=== PATIENT | male | born 1965 | race Caucasian/White ===

== ENCOUNTER 2023-07-19 22:47 | Inpatient (IN) | payer OTHER, SELFPAY ==
[2023-07-19] VITALS (7 sets, daily range): BP systolic 96–125; BP diastolic 64–82; PULSE 69–107; RESP 16–23; TEMP 35.5; O2SAT 98–100
--- NOTE | ~2023-07-19 | MR_ITS ---
MRI of the brain Clinical History: Cardiac arrest, weakness in extremities Technique: Axial and sagittal T1-weighted images were acquired. These were followed by axial T2-weigh radhika, diffusion weighted, gradient, and FLAIR images. Following intravenous administration of 18 cc MultiHance gadolinium, T1-weighted fat-sat imaging was performed in the axial and coronal planes. Findings: There is no acute infarct, intracranial hemorrhage or mass lesion. Possible minimal cricoph aryngeus ischemic changes in the periventricular white matter. Ventricles and subarachnoid spaces are unremarkable. Orbits are unremarkable. Paranasal sinuses and m astoid air cells are clear. Major intracranial flow voids are grossly intact. Sagittal midline structures are intact. No abnormal postcontrast enhancement identified. IMPRESSION: No acute abnormality seen. Probable minimal chronic microvascular ischemic changes. Reviewed, dictated and finalized at [facility].
--- NOTE | ~2023-07-19 | MR_ITS ---
EXAMINATION: MR cervical spine wo/w con DATE: 07/28/2023 13:52 INDICATION: Weakness in all 4 extremities. TECHNIQUE: Magnetic resonance imaging (MRI) of the cervical spine was performed without and with 18 m L MultiHance intravenous contrast. COMPARISON: CT cervical spine 07/24/2023 FINDINGS: Motion artifact is noted. Bone alignment is normal. Vertebral body heights are normal. Ther e is severely decreased disc height at C6-C7. There is increased T2-weighted signal intensity in the spinal cord at C6-C7 on the right, consistent with myelomalacia. The following disc levels are specif ically discussed: C2-C3: The disc does not extend beyond the endplate margin. There is mild right uncovertebral joint o steoarthritis. There is mild bilateral facet joint osteoarthritis. There is no neural foraminal steno sis. There is no central canal stenosis. C3-C4: The disc does not extend beyond the endplate margin. There is mild bilateral uncovertebral elizabeth nt osteoarthritis. There is moderate bilateral facet joint osteoarthritis. There is mild bilateral ne ural foraminal stenosis. There is no central canal stenosis. C4-C5: There is a central protrusion. There is mild bilateral uncovertebral joint osteoarthritis. The re is severe right and moderate left facet joint osteoarthritis. There is moderate right and mild lef t neural foraminal stenosis. There is mild central canal stenosis. C5-C6: The disc is bulging. There is severe right and moderate left uncovertebral joint osteoarthriti s. There is moderate right and mild left facet joint osteoarthritis. There is moderate bilateral neur al foraminal stenosis. There is mild central canal stenosis. C6-C7: The disc is bulging. There is severe bilateral uncovertebral joint osteoarthritis. There is mi ld right and moderate left facet joint osteoarthritis. There is moderate bilateral neural foraminal s tenosis. There is mild central canal stenosis. C7-T1: The disc does not extend beyond the endplate margin. There is no uncovertebral joint osteoarth ritis. There is severe bilateral facet joint osteoarthritis. There is mild bilateral neural foraminal stenosis. There is no central canal stenosis. IMPRESSION: 1. Myelomalacia at C6-C7. 2. Severe cervical spondylosis. Reviewed, dictated and finalized at location [facility].
--- NOTE | ~2023-07-19 | XR_ITS ---
MODIFIED ESOPHAGRAM HISTORY: Speech therapist recommendations. TECHNIQUE: Modified barium esophagram was performed on 07/26/2023. I administered fluoroscopy and perf ormed the exam with speech pathologist. Patient was seated for lateral fluoroscopic imaging for buddy stion of thin liquids, pudding, solids and quantified amounts, followed by thin liquids in uncontroll ed amounts. This was recorded on tape. A single fluoroscopic spot image was also recorded. The DAP fo r this procedure was 1.003 Gycm2. The amount of fluoroscopy time used during this procedure was 1.14 minutes. FINDINGS: Oral stage: Adequate function. Pharyngeal stage: Adequate function. Cervical/esophageal stage: Adequate function. IMPRESSION: Patient tolerated regular consistency oral feedings in the upright position. Please hannah elate with speech pathologist findings and specific feeding recommendations. Reviewed, dictated and finalized at location [facility]. IMPRESSION: Patient tolerated regular consistency oral feedings in the upright position. Please correlate with speech pathologist findings and specific feedi ng recommendations.
--- NOTE | ~2023-07-19 | XR_ITS ---
XR abdomen gastric tube insert DATE: 07/19/2023 23:46 INDICATION: Orogastric tube placement TECHNIQUE: Portable supine AP view on 07/19/2023 at 2306 hours COMPARISON: None FINDINGS: Tip of NG tube overlies the upper body of the stomach, the proximal side port situated just distal to the diaphragmatic hiatus. Nonspecific bowel gas pattern. IMPRESSION: NG tube in upper body of stomach Reviewed, dictated and finalized at [facility]. Reviewed, dictated and finalized at location [facility].
--- NOTE | ~2023-07-19 | CT_ITS ---
EXAMINATION: CT brain wo con DATE: 07/19/2023 23:30 INDICATION: Fall. Altered mental state. TECHNIQUE: Computed tomography (CT) of the head was performed without intravenous contrast. The mA wa s adjusted according to patient size. Iterative reconstruction technique was employed. Exam dose: 68 1.00 mGy-cm total exam DLP. COMPARISON: None FINDINGS: Bilateral carotid siphon internal carotid artery calcifications. No intracranial mass lesion or hemorrhage or cerebrovascular accident, midline shift or mass effect i s detected. The orbital contents are unremarkable. No subdural or epidural hematoma. The paranasal sinuses and mastoid air cells are well-developed and aerated. No fracture or bone destruction of the cranial vault. Nonspecific linear calcific density in the subc utaneous tissues in the lateral right frontal scalp. IMPRESSION: Cerebral atherosclerosis A significant intracranial abnormality Reviewed, dictated and finalized at [facility]. Reviewed, dictated and finalized at location [facility].
--- NOTE | ~2023-07-19 | XR_ITS ---
EXAMINATION: XR chest ET placement DATE: 07/19/2023 23:10 INDICATION: Endotracheal tube placement TECHNIQUE: frontal view of the chest was obtained. COMPARISON: None FINDINGS: Portion of the bilateral lung bases are excluded from the [id number]. Endotracheal tube tip 4.7 cm above the tamera. Visualized portion of the lungs are clear with no focal airspace opacities, pulmon corky edema or pneumothorax. Heart size is normal. IMPRESSION: 1. Endotracheal tube tip 4.7 cm above the tamera. No evident acute cardiopulmonary disease although t he lung bases are excluded from the [id number]. Reviewed, dictated and finalized at location [facility]. IMPRESSION: 1. Endotracheal tube tip 4.7 cm above the tamera. No evident acute cardiopulmon corky disease although the lung bases are excluded from the [id number].
--- NOTE | ~2023-07-19 | CT_ITS ---
Non-contrast Head CT History: Unresponsive COMPARISON: 07/19/2023 Technique: Axial non-contrast imaging of the brain was performed. Dose reduction technique was used on this scan by utilizing automated exposure control and iterative reconstruction technique. The dose -length product (DLP) was 681.00 mGy-cm. Findings: There is no evidence of intracranial hemorrhage, mass lesion, or acute infarct. Brain par enchyma appears normal. The ventricles and subarachnoid spaces are normal in size. The calvarium ap pears normal. The visualized paranasal sinuses and mastoid air cells are clear. Impression: No significant abnormality seen. Reviewed, dictated and finalized at location . Impression: No significant abnormality seen.
--- NOTE | ~2023-07-19 | CT_ITS ---
EXAMINATION: CTA chest abdomen pelvis DATE: 07/19/2023 23:31 INDICATION: Cardiac arrest TECHNIQUE: Computed tomography (CT) of the chest, abdomen, and pelvis was performed with 100 CC Omnip aque 350 intravenous contrast. Automated exposure control and iterative reconstruction technique were employed. Exam dose: 1277.44 mGy-cm total exam DLP. COMPARISON: . 07/19/2023 portable AP chest 07/19/2023 KUB FINDINGS: CHEST CT: There is mild focal dependent left upper lobe infiltrate or atelectasis. There is more prominent right lower lobe and particularly left lower lobe infiltrate and/or atelectas is especially in the dependent aspect of the lower lobes. ET tube approximately 2 cm above tamera. NG tube in upper body of stomach. The descending aorta measures up to 4.2 cm diameter. There is atherosclerotic calcification of the th oracic aorta and the coronary arteries. Cardiomegaly. No pericardial effusion. No pleural effusion. No hilar or mediastinal mass lesion or lymphadenopathy. ABDOMEN/PELVIS CT: The gallbladder is contracted. No hepatic, splenic, pancreatic, adrenal or right renal space occupyin g mass lesion. 8 mm lower pole left renal cyst. The left kidney is otherwise unremarkable. No urinary tract calculi or hydroureteronephrosis are noted. There is a Guzman catheter within the evacuated uri nary bladder. Normal caliber of the abdominal aorta. No intraperitoneal or retroperitoneal or pelvic mass lesion or adenopathy or ascites is noted. Diverticulosis of the colon; no CT evidence of diverticulitis. There are nondilated fluid containing small bowel segments and air-fluid levels within the small bowel and some liquid stool in the colon m ay be due to enterocolitis or adynamic ileus. No bowel obstruction, bowel wall thickening, pneumatosi s or intraperitoneal free air is noted. Degenerative changes of the cervical, thoracic and lumbar spine. Mild loss of height of T9 and T11 ve rtebral bodies which may be due to old compression fractures or possibly developmental. No suspicious osteolytic or osteoblastic lesions are noted.. IMPRESSION: Bilateral pulmonary infiltrates and/or atelectasis, particularly in the lower lobes, lef t greater than right ET and NG tubes 4.2 cm descending thoracic aortic aneurysm Cardiomegaly 8 mm lower pole left renal cyst Diverticulosis of the colon Air-fluid levels in the small bowel and some liquid stool in the colon, without bowel obstruction 7 c onsider adynamic ileus versus enterocolitis Reviewed, dictated and finalized at [facility]. Reviewed, dictated and finalized at location A. IMPRESSION: Bilateral pulmonary infiltrates and/or atelectasis, particularly i n the lower lobes, left greater than right ET and NG tubes 4.2 cm descending thoracic aortic aneurysm Cardiomegaly 8 mm lower pole left renal cyst Diverticulosis of the colon Air-fluid levels in the small bowel and some liquid stool in the colon, without bowel obstruction 7 consider adynamic ileus versus enterocolitis
--- NOTE | ~2023-07-19 | XR_ITS ---
XR chest 1V portable DATE: 07/21/2023 05:36 INDICATION: Respiratory failure TECHNIQUE: Portable AP chest on 07/21/2023 at 0523 hours COMPARISON: 07/20/2023 portable AP chest at 0525 hours FINDINGS: ET tube in satisfactory position 4.9 cm above tamera. NG tube in stomach, proximal side por t approximately 2.2 cm distal to the diaphragmatic hiatus. No central lines. There is with mild infiltrate or atelectasis in the lower lung zones. No pleural effusion or pulmonar y vascular congestion or pneumothorax. Borderline heart size. Aortic arch calcification. IMPRESSION: No significant change since 07/20/2023 Reviewed, dictated and finalized at location [facility].
--- NOTE | ~2023-07-19 | XR_ITS ---
Portable chest x-ray Comparison: 07/22/2023 Clinical History: Respiratory failure Findings: Endotracheal tube and NG tube are in place, with NG tube side-port at the GE junction ananda on. Lungs are clear, without focal consolidation or pleural effusion. Cardiomediastinal silhouette i s stable. Bones and soft tissues are unremarkable. Impression: NG tube side-port of the GE junction. Further advancement into the stomach advised. ET tube in place. Clear lungs. Reviewed, dictated and finalized at location [facility]. Impression: NG tube side-port of the GE junction. Further advancement into the stomach advi sed. ET tube in place. Clear lungs.
--- NOTE | ~2023-07-19 | CT_ITS ---
Noncontrast CT scan of the cervical spine Technique: Multiple contiguous axial [address] images of the cervical spine were obtained and rec onstructed in 2D sagittal and coronal planes on the acquisition scanner. Dose reduction technique was used on this scan by utilizing automated exposure control, adjustment of the mA and/or kV according to patient size. The dose-length product (DLP) was 634.68 mGy-cm. Clinical History: Encephalopathy, unable to move extremities Findings: No fractures or dislocations. There is moderate degenerative disc change at C6-C7. Probabl e mild right neural foraminal narrowing at C4-C5 with mild facet arthropathy in the right side. There is right neural foraminal narrowing at C5-C6. There is bilateral neural foraminal narrowing at C6-C7 with disc osteophyte complex present. No prevertebral soft tissue swelling. There is partially proba ble minimal patchy airspace opacities in the superior segment right lower lobe. Impression: No fracture or subluxation of the cervical spine. Mild degenerative spondylosis, as detailed above. Partially imaged mild airspace opacities in the superior segment right lower lobe. Diagnostic conside rations including atelectatic change versus possibly pneumonia. Consider dedicated chest CT as indica radhika. Reviewed, dictated and finalized at [facility]. Impression: No fracture or subluxation of the cervical spine. Mild degenerative spondylosis, as detailed above. Partially imaged mild airspace opacities in the superior segment right lower lo be. Diagnostic considerations including atelectatic change versus possibly pneu monia. Consider dedicated chest CT as indicated.
--- NOTE | ~2023-07-19 | XR_ITS ---
Portable chest x-ray Comparison: 07/21/2023 Clinical History: Respiratory failure Findings: Endotracheal tube and NG tube are in satisfactory positions. Lungs are clear, without foca l consolidation or pleural effusion. Cardiomediastinal silhouette is stable. Bones and soft tissues are unremarkable. Impression: Lungs. Support tubes, as above. Reviewed, dictated and finalized at location . Impression: Lungs. Support tubes, as above.
--- NOTE | ~2023-07-19 | CT_ITS ---
Non-contrast Head CT History: Encephalopathy COMPARISON: 07/22/2023 Technique: Axial non-contrast imaging of the brain was performed. Dose reduction technique was used on this scan by utilizing automated exposure control and iterative reconstruction technique. The dose -length product (DLP) was 908.00 mGy-cm. Findings: There is no evidence of intracranial hemorrhage, mass lesion, or acute infarct. Brain par enchyma appears normal. The ventricles and subarachnoid spaces are normal in size. The calvarium ap pears normal. The visualized paranasal sinuses and mastoid air cells are clear. Impression: No significant abnormality seen. Reviewed, dictated and finalized at location . Impression: No significant abnormality seen.
--- NOTE | ~2023-07-19 | MR_ITS ---
EXAMINATION: MR lumbar spine wo/w con DATE: 07/28/2023 13:52 INDICATION: Weakness in all 4 extremities. TECHNIQUE: Magnetic resonance imaging (MRI) of the lumbar spine was performed without and with 18 mL MultiHance intravenous contrast. COMPARISON: None FINDINGS: There is 9 degrees levocurvature of lumbar spine. Vertebral body heights are normal. There is mildly decreased disc height at L5-S1. The distal spinal cord signal intensity is normal. The conu s medullaris is at T11-T12. The following disc levels are specifically discussed: L1-L2: The disc does not extend beyond the endplate margin. There is mild bilateral facet joint osteo arthritis. There is no neural foraminal stenosis. There is no central canal stenosis. L2-L3: The disc is bulging and has an annular fissure. There is mild bilateral facet joint osteoarthr itis. There is mild bilateral neural foraminal stenosis. There is mild central canal stenosis. L3-L4: The disc is bulging. There is mild bilateral facet joint osteoarthritis. There is mild bilater al neural foraminal stenosis. There is mild central canal stenosis. L4-L5: The disc is bulging and has an annular fissure. There is severe bilateral facet joint osteoart hritis. There is moderate bilateral neural foraminal stenosis. There is mild central canal stenosis. L5-S1: The disc is bulging and has an annular fissure. There is mild right and moderate left facet william int osteoarthritis. There is mild bilateral neural foraminal stenosis. There is mild central canal st enosis. IMPRESSION: 1. Moderate lumbar spondylosis. Reviewed, dictated and finalized at location A.
--- NOTE | ~2023-07-19 | XR_ITS ---
XR chest 1V portable DATE: 07/20/2023 06:09 INDICATION: Post cardiac arrest. TECHNIQUE: Portable AP chest on 07/19 sagittal and 24 0525 hours COMPARISON: 07/19/2023 portable AP chest at 2253 hours 07/19/2023 CT 8 chest abdomen pelvis FINDINGS: ET tube in satisfactory position 3 cm above tamera. NG tube in upper stomach. Mild infiltrate or atelectasis in the lower lung zones. No pleural effusion or pulmonary vascular congestion or pneumothorax. Aortic arch calcification. Heart size is not optimally evaluated on AP projection because of magnification. IMPRESSION: Mild infiltrate or atelectasis in the lower lung zones Reviewed, dictated and finalized at location A.
--- NOTE | ~2023-07-19 | XR_ITS ---
Portable chest x-ray Comparison: 07/23/2023 Clinical History: Respiratory failure Findings: Endotracheal tube and NG tube are in satisfactory positions. Lungs are clear, without foca l consolidation or pleural effusion. Cardiomediastinal silhouette is stable. Bones and soft tissues are unremarkable. Impression: Clear lungs. Support tubes, as above. Reviewed, dictated and finalized at location . Impression: Clear lungs. Support tubes, as above.
--- NOTE | ~2023-07-19 | MR_ITS ---
EXAMINATION: MR thoracic spine wo/w con DATE: 07/28/2023 13:52 INDICATION: Weakness in all 4 extremities. TECHNIQUE: Magnetic resonance imaging (MRI) of the thoracic spine was performed without and with 18 m L MultiHance intravenous contrast. COMPARISON: Chest CT 07/19/2023 FINDINGS: Motion artifact is noted. There is 4 degrees dextrocurvature of thoracic spine. There is ky phosis of thoracic spine. There is mild chronic anterior wedging of T3, T4, T9, T10, T11, and T12 chani tebral bodies. There is mildly decreased disc height at T3-T4, T4-T5, T5-T6, and T6-T7. At T4-T5, the disc is bulging and mild central canal stenosis. At T6-T7, there is a central protrusion with mild c entral canal stenosis. At T9-T10, there is a central protrusion with mild central canal stenosis. The re is multilevel mild facet joint osteoarthritis. No neural foraminal stenosis. The spinal cord signa l intensity is normal. IMPRESSION: 1. Mild thoracic spondylosis. Reviewed, dictated and finalized at location A.
--- NOTE | ~2023-07-19 | XR_ITS ---
Portable chest x-ray Comparison: 07/24/2023 Clinical History: Respiratory failure Findings: Endotracheal tube and NG tube are in satisfactory positions. Lungs remain clear. Cardiome diastinal silhouette is stable. Bones and soft tissues are unremarkable. Impression: Clear lungs. Stable support tubes. Reviewed, dictated and finalized at location . Impression: Clear lungs. Stable support tubes.
[2023-07-19] MEDS: FENTANYL 2,500MCG/NS250ML(*CRX 2,500 MCG/250 ML BAG IV CONT (22:55)
--- NOTE | 2023-07-19 22:55 | ECG_ITS ---
SEE SCANNED COPY FOR CONFIRMED REPORT MTDD
[2023-07-19 23:07] LABS: Hematocrit 44.1 % (42.0-52.0); Hemoglobin 14.4 g/dL (14.0-18.0); Mean Corpuscular HGB Conc 32.7 g/dl (32-36); Mean Corpuscular Hemoglobin 31.9 pg (26-34); Mean Corpuscular Volume 97.6 fl (80-100); Mean Platelet Volume 9.1 fl (7.4-10.4); Platelet Count Result 280 k/mm3 (150-375); Red Blood Count 4.52 M/mm3 (4.6-6.20); Red Cell Distribution Width 11.9 % (11.5-14.5); White Blood Count 14.7 K/mm3 (4.5-10.0)
[2023-07-19 23:18] LABS: INR 1.1; Prothrombin Time 14.8 Seconds (11.1-14.7)
[2023-07-19 23:19] LABS: Partial Thromboplastin Time 31.8 Seconds (22.3-36.8)
[2023-07-19 23:23] LABS: Estimated CRCL calculation 58 ml/min; Estimated Glomerular Filt Rate 52
[2023-07-19 23:32] LABS: LDL Cholesterol Direct 129 mg/dL
[2023-07-19 23:33] LABS: Blastocytes 1 %; Eosinophils Absolute Manual 0.44 K/mm3 (0.02-0.50); Eosinophils Percent Manual 3 % (0-4); Large Platelets Present; Lymphocytes Absolute Manual 7.49 K/mm3 (1.1-4.5); Monocytes Absolute Manual 0.14 K/mm3 (0.1-0.90); Monocytes Percent Manual 1 % (3-9); Myelocytes Percent 3 %; Neutrophils Percent Manual 32 % (46-73); Platelet Estimate Adequate (Adequate); Promyelocytes Percent 9 %; Total Cells Counted 100
[2023-07-19 23:34] LABS: Atypical Lymphocytes Present; Platelet Clumps Present; Schistocytes None Seen; Smudge Cells PRESENT
[2023-07-19 23:44] LABS: Alanine Aminotransferase 91 U/L (6-50); Albumin Level 4.2 g/dL (3.5-5.1); Alkaline Phosphatase 82 U/L (38-126); Anion Gap 18 mmol/L (4-12); Aspartate Amino Transferase 165 U/L (17-59); Bilirubin,Total 0.4 mg/dL (0.2-1.3); Blood Urea Nitrogen 16 mg/dL (9-20); Calcium 8.8 mg/dL (8.4-10.2); Carbon Dioxide 15 mmol/L (22-30); Chloride 104 mmol/L (98-107); Cholesterol 198 mg/dL (0-200); Estimated CRCL calculation 58 ml/min; Estimated Glomerular Filt Rate 52; Glucose 296 mg/dL (65-110); HDL Direct 48 mg/dL; Potassium 3.2 mmol/L (3.4-5.0); Sodium 137 mmol/L (137-145); Triglycerides 141 mg/dL (<150)
[2023-07-19 23:45] LABS: Lactic Acid Reflex 9.7 mmol/L (0.7-2.0)
[2023-07-19] MEDS: MIDAZOLAM 100MG/NS 100ML(*CRX) 100 MG/100 ML BAG IV CONT (23:46)
[2023-07-19] MEDS: TICAGRELOR 90 MG TABLET 180 MG PO (23:52)
[2023-07-19] MEDS: HEPARIN SODIUM 5,000 UNITS/ML VIAL 4000 UNITS IV PUSH (23:52)
[2023-07-19] MEDS: ASPIRIN 81 MG CHEWABLE TABLET 324 MG PO (23:54)
[2023-07-20] VITALS (62 sets, daily range): BP systolic 94–163; BP diastolic 71–115; PULSE 64–95; RESP 17–31; TEMP 35.4–37.3; O2SAT 98–100; BMI 26.7
--- NOTE | 2023-07-20 | ECHO_ITS ---
Patient Info Name: Andrews Sosa Age: 57 years : 1965 Gender: Male Ht: 73 in Wt: 202 lbs BSA: 2.18 m2 HR: 70 bpm Heart Rhythm: Sinus Rhythm Technical Quality: Good Exam Date: 07/20/2023 8:34 AM Exam Location: Echo Lab Patient Status: Inpatient Admit Date: 07/19/2023 Staff Ordering Physician: Andrzej Lopez MD Aquaculturist: Gabriel Freeman RDCS Attending Provider: Ralph Arce MD Exam Type: CA echo doppler color flow Study Info Indications - STEMI Complete two-dimensional, color flow and Doppler transthoracic echocardiogram is performed. Summary 1. Complete two-dimensional, color flow and Doppler transthoracic echocardiogram is performed. 2. Normal left ventricular size with posterior hypokinesia overall normal ejection fraction. 3. No significant valvular dysfunction. Left Ventricle Left ventricular chamber dimension is normal. Left ventricular systolic function is Empty, estimated at 50-55%. The left ventricular diastolic function is grade I diastolic dysfunction. Right Ventricle Right ventricular chamber dimension is normal. Left Atria Left atrial chamber dimension is normal. Right Atria Right atrial chamber dimension is normal. Aortic Valve The aortic valve is trileaflet. There is mild aortic valve sclerosis. Pulmonic Valve The pulmonic valve is not well visualized. Mitral Valve The mitral valve has normal leaflets. Tricuspid Valve The tricuspid valve leaflets are normal. Pericardium/Pleural The pericardium appears normal. Aorta The aortic root size at the sinus of Valsalva is normal. Report Signatures
--- NOTE | 2023-07-20 00:50 | ECG_ITS ---
SEE SCANNED COPY FOR CONFIRMED REPORT MTDD
--- NOTE | 2023-07-20 00:56 | WPDCARDPROC ---
Cardiac Cath Procedure Note Date of procedure:: 07/20/23 Performing physician:: Ralph Arce MD Indication:: out of hospital cardiac arrest acute posterolateral myocardial infarction dyslipidemia reported history of aortic aneurysm Brief clinical history:: this is a 57-year-old man who is unknown to us here at [facility] he apparently has a history of an aortic aneurysm and is followed elsewhere by a gravity prospector. I am told that he has no prior history of coronary disease. He presented to the hospital with ST-elevation SC. Apparently he collapsed at home and 911 was called. He was found asystolic and was resuscitated. He a had ventricular fibrillation and pulseless electrical activity during resuscitation effort. In the emergency room following resuscitation his initial ECG demonstrated obvious infero posterior infarction. Subsequent EKG demonstrated less significant ST elevation but with atrial fibrillation. In this setting he is being brought for emergency coronary angiography. He was intubated in the resuscitation effort and is sedated on mechanical ventilator support. Patient received aspirin and loading dose of Brilinta through his OG tube. Procedure Procedure performed:: Emergency coronary angiography emergency PCI (ALEXANDR) of the mid circumflex Sedation/Medication given:: IV fentanyl and Versed drips started in the emergency room and continued through the case Access site:: right femoral artery Estimated blood loss:: 30 cc Procedure note:: patient was brought to the cardiac laboratory equipment installer in the emergent setting not described above. The right femoral triangle was prepared and draped in the usual fashion. Anesthesia was given with 1% lidocaine infiltrated locally. Following this a 6 Cymraes sheath was placed into the femoral artery using the modified Seldinger technique. I advanced a 6 Cymraes FL4 catheter to the aortic root but the aortic root was dilated and this would not satisfactorily engage left main coronary artery. Following this I used a 6 Cymraes FL 5 catheter to perform left coronary angiography. The right coronary was injected using a standard 6 Cymraes JR4 catheter. During the diagnostic angiogram the femoral puncture site was oozing around the sheath. I then upsized this to a 7 Cymraes sheath and there was no further bleeding for the remainder of the case. The cineangiograms were then reviewed and PCI of the circumflex lesion described below was targeted for emergency PCI. Prior to PCI the patient received bolus and infusion of bivalirudin for procedural anticoagulation. As above he is loaded with aspirin and Brilinta in the emergency room so he did not receive any additional anti-platelet therapy in the laboratory equipment installer. Following completion of PCI the wire, balloon catheter and guiding catheter were removed the sheath was sutured into position the patient was taken to the ICU for post SC PCI recovery. The procedure was uncomplicated other than that oozing around the sheath as mentioned above Findings:: hemodynamics: Central aortic pressure was 104 over 80. Left ventricle was not entered during the procedure the left main coronary artery is medium in caliber and free of stenosis the left anterior descending is a large to moderate caliber artery extending down to the apex. There is modest 30% stenosis of the ostial segment of the LAD and then there is modest 40% stenosis in the midportion of the LAD there is ALBINO 3 flow in the vessel and these lesions are not flow-limiting the circumflex is a moderate caliber artery with approximately 50% stenosis just prior to the 1st marginal branch. After the 1st OM branch the circumflex is 100% occluded angiographically this appears to be in acute thrombotic occlusion consistent with STEMI. The right coronary artery is large in caliber and dominant to the posterior circulation. There is approximately 50% stenosis of the 1st portion of the right coronary arter
--- NOTE | 2023-07-20 01:07 | PM.IMHP ---
H&P: HPI History of Present Illness Date/Time: 07/20/23 01:07 Chief Complaint: out of hospital cardiac arrest, ST-elevation CT Narrative: this is a 57-year-old man with an apparent history of dyslipidemia and a reported history of aortic aneurysm. The details of this are unknown to us. He presents to the hospital here following resuscitation from cardiac arrest. He apparently was at home with family and was suddenly unresponsive and collapsed. 911 was called and I was told he was found in asystole. Resuscitation was then carried out and there were episodes of ventricular fibrillation as well as PE a. Upon arrival here he was intubated and electrocardiogram done following resuscitation showed obvious inferior ST elevation with anterior precordial ST depression. He has no previous known history of coronary artery disease according to the information I was given. There was no further history available as he is unresponsive and intubated and on ventilator support. Review of Systems Review of Systems: ROS unobtainable: Yes unobtainable due to endotracheal tube and unobtainable due to mental status PMFSH Past Medical History Medical History (Updated 07/20/23 @ 01:11 by Ralph Arce MD) BMI between 19-24,adult Colon cancer screening Encounter to establish care Family history of CT (myocardial infarction) Osteoarthritis of hands, bilateral Prostate cancer screening Wellness examination Family History Family History Mother , at 74 from Stroke Diabetes mellitus Acute myocardial infarction Cerebrovascular accident Father , at 54 from Heart Attack Acute myocardial infarction Social History Social History Smoking status: Former smoker Tobacco type: cigarettes Alcohol intake: current Alcohol use details: Beer occasionally Substance use: never Meds Home Medications and Allergies Home Medications Medication Instructions Recorded Confirmed Type aspirin 81 mg tablet,delayed 81 mg PO DAILY 09/15/19 09/15/19 History release (Adult Low Dose Aspirin) atorvastatin 10 mg tablet 10 mg PO DAILY #90 tabs 09/15/19 09/15/19 Rx multivitamin 1 cap PO DAILY 09/15/19 09/15/19 History Allergies Allergy/AdvReac Type Severity Reaction Status Date / Time No Known Allergies Allergy Unverified 09/15/19 15:33 Vital Signs Vital Signs - 24 hr 07/19/23 22:50 07/19/23 23:46 07/19/23 22:55 Pulse Rate 107 H 73 72 Respiratory Rate 23 H 16 16 Blood Pressure 125/82 Pulse Oximetry 98 Oxygen Delivery Bag Valve Mask 07/19/23 23:47 07/19/23 23:15 Pulse Rate 69 Respiratory Rate Blood Pressure Pulse Oximetry 100 Oxygen Delivery BiPAP Exam Const: Other: Sedated white male appearing his stated age HENMT: Mouth: Yes moist mucous membranes Eyes: Sclera: sclerae normal Neck: Neck: supple Resp: Auscultation: clear to auscultation bilaterally Other: ventilator breath sounds Cardio: Rate: regular rate Rhythm: regular rhythm Other: no apparent murmur or gallop GI: GI Palp: Yes Soft to palpation Auscultation: normal bowel sounds Skin: General skin exam: normal color Neuro: Other: unresponsive on ventilator Extrem: General: normal to inspection H&P: Results Labs Labs: Short CBC 07/19/23 Range/Units 22:59 WBC 14.7 H (4.5-10.0) K/mm3 Hgb 14.4 (14.0-18.0) g/dL Hct 44.1 (42.0-52.0) % Plt Count 280 (150-375) k/mm3 BMP 07/19/23 07/19/23 22:59 23:21 Sodium 137 Potassium 3.2 L Chloride 104 Carbon Dioxide 15 L BUN 16 Creatinine 1.40 H 1.40 Glucose 296 H Calcium 8.8 Cardiac Enzymes 07/19/23 Range/Units 22:59 Troponin I 3.870 H* (0.000-0.034) ng/mL Liver Function 07/19/23 Range/Units 22:59 Total Bilirubin 0.4 (0.2-1.3) mg/
--- NOTE | 2023-07-20 01:11 | PC.NURSE ---
This patient, Andrews Sosa, was admitted to Intensive Care Unit-8. Patient/family oriented to hospital policies and general routines including ID bracelet, bed and alarms, visiting hours, pain management, procedures, bathroom and other care routines, personal items, smoking policy, room service/diet, and visiting hours. Information on how to activate the Rapid Response Team has been discussed. Patient/Family are encouraged to report perceived risks to care and to ask questions if they do not understand what they are told or what they should do.
[2023-07-20] MEDS: SODIUM CHLORIDE 0.9% IV 1,000 ML 125 ML IV CONT (01:38)
--- NOTE | 2023-07-20 01:50 | ED.CPR ---
HPI - CPR General Chief Complaint: Cardiac Arrest/CPR Stated Complaint: post cardiac arrest Time Seen by Provider: 07/19/23 22:54 History of Present Illness HPI narrative: Patient presenting post cardiac arrest, per patient at bedside, he had a CT for an aneurysm the day before, and then today was complaining that he was very tired with back pain, he and he went to bed early. He kept telling her he was fine and did not want to go to the hospital. Related Data Home Medications Medication Instructions Recorded Confirmed aspirin 81 mg tablet,delayed 81 mg PO DAILY 09/15/19 09/15/19 release (Adult Low Dose Aspirin) multivitamin 1 cap PO DAILY 09/15/19 09/15/19 Allergies Allergy/AdvReac Type Severity Reaction Status Date / Time No Known Allergies Allergy Unverified 09/15/19 15:33 Review of Systems Review of Systems: ROS unobtainable: Yes unobtainable due to endotracheal tube PMFSH Past Medical History Medical History (Updated 07/20/23 @ 01:51 by Jes Manuel MD) BMI between 19-24,adult Colon cancer screening Encounter to establish care Family history of [place] (myocardial infarction) Osteoarthritis of hands, bilateral Prostate cancer screening Wellness examination Family History Family History Mother , at 74 from Stroke Diabetes mellitus Acute myocardial infarction Cerebrovascular accident Father , at 54 from Heart Attack Acute myocardial infarction Social History Social History Smoking status: Former smoker Tobacco type: cigarettes Alcohol intake: current Alcohol use details: Beer occasionally Substance use: never Exam Narrative: EXAMINATION OF ORGAN SYSTEMS/BODY AREAS: Constitutional: Vital signs per nursing GENERAL: Eyes open and moving his arms HEAD: Normal with no signs of head trauma. EYES: PERRL ENT: Hearing grossly intact LUNGS: Bilateral breath sounds with bagging HEART: [Regular rate and rhythm] ABD: [Soft], nondistended EXT: No obvious deformity SKIN: [No rashes or lesions.] NEURO: Eyes open and pulling away from us Course Vital Signs Vital signs: Vital Signs Temperature 96 F L 07/19/23 22:50 Pulse Rate 107 H 07/19/23 22:50 Respiratory Rate 23 H 05/10/24 22:50 Blood Pressure 125/82 05/10/24 22:50 Pulse Oximetry 98 07/19/23 22:50 Oxygen Delivery Bag Valve Mask 07/19/23 22:50 Temperature 96 F L 07/19/23 22:50 Pulse Rate 70 07/20/23 01:29 Respiratory Rate 29 H 07/20/23 01:15 Blood Pressure 96/64 L 07/19/23 23:50 Pulse Oximetry 100 07/20/23 01:29 Oxygen Delivery Mechanical Ventilation 07/20/23 01:29 Fraction of Inspired Oxygen 40 07/20/23 01:29 MDM - Cardiac Arrest/CPR MDM Narrative Medical decision making narrative: Patient presents post cardiac arrest, per had been complaining of back pain, she heard him fall out of bed, found him unresponsive, when EMS arrived he was in asystole, after 2 rounds of compressions and epi he went into VFib, was shocked twice and became normal sinus rhythm. He was intubated and brought here. Upon arrival here he was immediately assessed, placed on monitors, EKG obtained, ET tube placement confirmed, OG tube and Guzman placed. Deferred TTM since patient appears to be neurologically responsive. Sedation started. EKG on my interpretation extremely concerning for inferior STEMI with elevations in 2, 3, aVF, and deep depressions in anterolateral leads. color laboratory technician was activated, case discussed with peoplesoft programmer Dr Arce who will come in for emergent cath. Given the report of head injury and aneurysm I did also order a CT head and CTA of his chest, abdomen, pelvis, while waiting for label drier to arrive. I did update the family on the plan and patient's condition. I did review the images myself and did not see any obvious abnormali
[2023-07-20] MEDS: POTASSIUM CHLORIDE INJ 40 MEQ in SODIUM CHLORIDE 0.9% IV 500 ML 130 MEQ IVPB (01:58)
[2023-07-20 02:04] LABS: Reflex Lactic Acid Yes or No Add Lactic
[2023-07-20 02:44] LABS: Lactic Acid 1.5 mmol/L (0.7-2.0)
[2023-07-20 02:45] LABS: Cholesterol 217 mg/dL (0-200); HDL Direct 52 mg/dL; Triglycerides 71 mg/dL (<150)
[2023-07-20 02:56] LABS: LDL Cholesterol Direct 134 mg/dL
[2023-07-20 03:07] LABS: Alveolar/Arterial O2 Gradient 74.7 mmHg; Base Excess ABG -2.4 mEq/l (+/-2.0); Device VENTILATOR; Fractional Inspired Oxygen 30 %; HCO3 ABG 21.5 mEq/l (22.0-26.0); Modified Allen's Test Unable to perform; Oxygen Content ABG 20.4 %vol (16.0-22.0); Oxygen Saturation ABG 97.6 % (95.0-100.0); PCO2 ABG 34.7 mmHg (35.0-45.0); PO2 ABG 98.4 mmHg (80.0-100.0); PO2 FiO2 Ratio Arterial Blood 3.28 %; Site Drawn RIGHT RADIAL; Total Hemoglobin 14.9 g/dL (12.0-18.0); pH ABG 7.409 (7.350-7.450)
[2023-07-20 03:08] LABS: Arterial Blood Gas PEEP 5 cmH2O; Arterial Blood Gas Tidal Volume 450 ml; Arterial Blood Gas Vent Mode CMV; Arterial Blood Gas Ventilator rate 18 /MIN
[2023-07-20 06:06] LABS: Basophils Percent Auto 0.2 % (0.2-1.2); Eosinophils Percent Auto 0.1 % (0-4.4); Hematocrit 44.9 % (42.0-52.0); Hemoglobin 14.7 g/dL (14.0-18.0); Immature Granulocyte Absolute 0.08 K/mm3 (0.00-0.031); Immature Granulocyte Percent A 0.5 % (0-0.5); Lymphocytes Absolute Auto 0.82 K/mm3 (0.9-3.2); Mean Corpuscular HGB Conc 32.7 g/dl (32-36); Mean Corpuscular Hemoglobin 31.7 pg (26-34); Mean Platelet Volume 8.9 fl (7.4-10.4); Monocytes Percent Auto 6.2 % (2.6-8.5); Neutrophils Absolute Auto 14.6 K/mm3 (1.3-6.7); Platelet Count Result 278 k/mm3 (150-375); Red Blood Count 4.63 M/mm3 (4.6-6.20); White Blood Count 16.5 K/mm3 (4.5-10.0)
[2023-07-20 06:17] LABS: MRSA (PCR) NOT DETECTED (NOT DETECTE)
--- NOTE | 2023-07-20 08:36 | WPDCNINT ---
Assessment and Plan Assessment and plan (1) Cardiac arrest: Code(s): I46.9 - Cardiac arrest, cause unspecified Status: Acute Assessment and Plan: Patient presented after what appears to be asystole cardiac arrest which converted to VFib after CPR and epinephrine requiring defibrillation Diagnosed with STEMI in ER and status post PCI CTA was negative for any complication of aortic aneurysm or PE Now intubated and sedated Hemodynamically stable at this time Echo ordered and pending Troponins reviewed Management of STEMI as below Evaluation and management of encephalopathy as below (2) STEMI (ST elevation myocardial infarction): Code(s): I21.3 - ST elevation (STEMI) myocardial infarction of unspecified site Status: Acute Assessment and Plan: STEMI status post PCI Catheterization showed Right coronary dominant circulation with acute myocardial infarction with ST elevation resulting from acute thrombotic occlusion of the mid circumflex after the 1st obtuse marginal branch as detailed above now status post successful emergency PCI of the target lesion in the mid circumflex using the 3 x 22 mm Orsiro? drug-eluting stent with an excellent anatomical result. Check echocardiogram Aspirin Brilinta ernst and ARB Hold statin for now due to elevated liver enzymes (3) Acute respiratory failure: Code(s): J96.00 - Acute respiratory failure, unspecified whether with hypoxia or hypercapnia Status: Acute Assessment and Plan: Acute Respiratory failure secondary to cardiac arrest and aspiration pneumonia Patient currently intubated and sedated Continue full mechanical ventilation support to prevent hypoxemia/hypercarbia and end organ damage. ABG and PCXR reviewed Treatment of pneumonia as below Low tidal volume ventilation strategy to prevent volutrauma Will perform sedation holiday and evaluate mental status and evaluate for SBT today (4) Pneumonia: Code(s): J18.9 - Pneumonia, unspecified organism Status: Acute Assessment and Plan: Likely aspiration Check blood and sputum culture Start Zosyn IV fluids (5) Hypertension: Code(s): I10 - Essential (primary) hypertension Status: Acute Assessment and Plan: Currently blood pressure is in control Continue metoprolol (6) Encephalopathy: Code(s): G93.40 - Encephalopathy, unspecified Status: Acute Assessment and Plan: Patient had a cardiac arrest but as per ER physician report patient had purposeful movement post intubation in the ER before he receives sedatives. Currently he is sedated. Head CT shows cerebral atherosclerosis and no other acute intracranial abnormality. Will perform sedation holiday and evaluate today Maintain normothermia Change Versed and fentanyl to propofol (7) Electrolyte abnormality: Code(s): E87.8 - Other disorders of electrolyte and fluid balance, not elsewhere classified Status: Acute Assessment and Plan: Potassium was replaced and repeat labs ordered and pending (8) Lactic acidosis: Code(s): E87.20 - Acidosis, unspecified Status: Acute Assessment and Plan: Likely secondary to cardiac arrest and possibly sepsis Lactic acidosis has cleared now Treatment of cardiac arrest and sepsis is as above (9) Aortic aneurysm: Code(s): I71.9 - Aortic aneurysm of unspecified site, without rupture Status: Acute Assessment and Plan: Patient was recently diagnosed with thoracic aortic aneurysm CTA done in ER shows 0.2 cm descending thoracic aortic aneurysm with no dissection or rupture Obtain records from [facility] Plan DVT prophylaxis -start Lovenox Stress ulcer prophylaxis -start PPI Nutrition - npo Code Status - Full Code Spoken updated patient's and niece at bedside answered all their questions Case discussed with Cardiology Total Critical Care Time - 35 minutes Due to a high probabilit
[2023-07-20 08:55] LABS: Alanine Aminotransferase 163 U/L (6-50); Albumin Level 4.4 g/dL (3.5-5.1); Alkaline Phosphatase 78 U/L (38-126); Anion Gap 8 mmol/L (4-12); Aspartate Amino Transferase 242 U/L (17-59); Bilirubin,Total 0.8 mg/dL (0.2-1.3); Blood Urea Nitrogen 16 mg/dL (9-20); Calcium 8.7 mg/dL (8.4-10.2); Carbon Dioxide 23 mmol/L (22-30); Chloride 109 mmol/L (98-107); Estimated CRCL calculation 88 ml/min; Estimated Glomerular Filt Rate > 60; Glucose 100 mg/dL (65-110); Magnesium 1.6 mg/dL (1.6-2.3); Phosphorus 2.9 mg/dL (2.5-4.5); Potassium 3.9 mmol/L (3.4-5.0); Sodium 140 mmol/L (137-145)
[2023-07-20 09:08] LABS: Hemoglobin A1C 5.4 % (<5.7)
[2023-07-20 09:13] LABS: Procalcitonin 0.2 ng/mL
[2023-07-20] MEDS: PIPERACILLIN/TAZ 4.5G/NS 100ML 4.5 GM/100 ML BAG IVPB ×3 (09:46→21:23)
[2023-07-20] MEDS: ROSUVASTATIN 10 MG TABLET PO (09:46)
[2023-07-20] MEDS: TICAGRELOR 90 MG TABLET PO ×2 (09:46→21:22)
[2023-07-20] MEDS: LOSARTAN POTASSIUM 25 MG TABLET PO (09:47)
[2023-07-20] MEDS: ENOXAPARIN 40 MG/0.4 ML SYRINGE SUB-Q (09:47)
[2023-07-20] MEDS: PANTOPRAZOLE SODIUM IV 40 MG VIAL IV PUSH (09:47)
[2023-07-20] MEDS: ASPIRIN 81 MG CHEWABLE TABLET PO (09:48)
[2023-07-20] MEDS: METOPROLOL TARTRATE 12.5 MG TABLET PO ×2 (10:05→21:22)
[2023-07-20 11:12] LABS: Triglycerides 59 mg/dL (<150)
[2023-07-20] MEDS: LACTATED RINGERS 1,000 ML 100 ML IV CONT ×2 (12:00→23:59)
[2023-07-20] MEDS: ACETAMINOPHEN 325 MG TABLET 650 MG PO (12:02)
[2023-07-20 12:13] LABS: Glucose Point of Care 157 mg/dl (65-105)
[2023-07-20] MEDS: PROPOFOL IV EMULSION 100 ML 2.76 MG IV CONT (13:25)
[2023-07-20] MEDS: ROCURONIUM BROMIDE 50 MG/5 ML VIAL IV PUSH (14:33)
[2023-07-20] MEDS: PROPOFOL IV EMULSION 100 ML 24.81 MG IV CONT (16:55)
[2023-07-20 17:16] LABS: Glucose Point of Care 117 mg/dl (65-105)
[2023-07-20] MEDS: PROPOFOL IV EMULSION 100 ML 19.3 MG IV CONT (21:20)
[2023-07-20] MEDS: MINERAL OIL/WHITE PETROLATUM OINTMENT 1 APPLIC EACH EYE (21:23)
[2023-07-21] VITALS (34 sets, daily range): BP systolic 95–183; BP diastolic 71–116; PULSE 62–115; RESP 16–30; TEMP 36.7–38.2; O2SAT 97–100
[2023-07-21 00:23] LABS: Glucose Point of Care 125 mg/dl (65-105)
[2023-07-21] MEDS: PROPOFOL IV EMULSION 100 ML 13.79 MG IV CONT ×2 (02:29→17:43)
[2023-07-21 04:10] LABS: Hematocrit 44.9 % (42.0-52.0); Hemoglobin 14.7 g/dL (14.0-18.0); Mean Corpuscular HGB Conc 32.7 g/dl (32-36); Mean Corpuscular Hemoglobin 31.5 pg (26-34); Mean Corpuscular Volume 96.1 fl (80-100); Mean Platelet Volume 9.2 fl (7.4-10.4); Platelet Count Result 269 k/mm3 (150-375); Red Blood Count 4.67 M/mm3 (4.6-6.20); Red Cell Distribution Width 12.5 % (11.5-14.5); White Blood Count 10.5 K/mm3 (4.5-10.0)
[2023-07-21] MEDS: PIPERACILLIN/TAZ 4.5G/NS 100ML 4.5 GM/100 ML BAG IVPB ×4 (04:21→21:51)
[2023-07-21 04:27] LABS: Alanine Aminotransferase 118 U/L (6-50); Alkaline Phosphatase 68 U/L (38-126); Anion Gap 7 mmol/L (4-12); Aspartate Amino Transferase 144 U/L (17-59); Bilirubin,Total 0.7 mg/dL (0.2-1.3); Blood Urea Nitrogen 13 mg/dL (9-20); Calcium 8.8 mg/dL (8.4-10.2); Carbon Dioxide 23 mmol/L (22-30); Chloride 108 mmol/L (98-107); Estimated CRCL calculation 111 ml/min; Estimated Glomerular Filt Rate > 60; Glucose 111 mg/dL (65-110); Magnesium 1.8 mg/dL (1.6-2.3); Potassium 3.7 mmol/L (3.4-5.0); Sodium 138 mmol/L (137-145)
--- NOTE | 2023-07-21 05:11 | ECG_ITS ---
SEE SCANNED COPY FOR CONFIRMED REPORT MTDD
[2023-07-21 05:28] LABS: Alveolar/Arterial O2 Gradient 75.5 mmHg; Base Excess ABG -0.4 mEq/l (+/-2.0); Carboxyhemoglobin 0.6 % THb (0-2.0); Fractional Inspired Oxygen 30 %; HCO3 ABG 22.6 mEq/l (22.0-26.0); Methemoglobin ABG 0.1 %THb (0-1.5); Oxygen Content ABG 20.8 %vol (16.0-22.0); Oxygen Saturation ABG 97.9 % (95.0-100.0); Oxyhemoglobin 97.5 % THb (90.0-100.0); PCO2 ABG 32.5 mmHg (35.0-45.0); PO2 ABG 100.2 mmHg (80.0-100.0); PO2 FiO2 Ratio Arterial Blood 3.34 %; Reduced Hemoglobin 1.8 %THb (0-5.0); Total Hemoglobin 15.1 g/dL (12.0-18.0)
[2023-07-21 05:29] LABS: Device VENTILATOR; Modified Allen's Test Pass; Site Drawn RIGHT RADIAL
[2023-07-21 05:30] LABS: Arterial Blood Gas PEEP 5 cmH2O; Arterial Blood Gas Tidal Volume 450 ml; Arterial Blood Gas Vent Mode CMV; Arterial Blood Gas Ventilator rate 18 /MIN
[2023-07-21] MEDS: ACETAMINOPHEN 325 MG TABLET 650 MG PO (05:54)
[2023-07-21 06:09] LABS: Glucose Point of Care 93 mg/dl (65-105)
[2023-07-21] MEDS: levETIRAcetam 1000MG/NACL100ML 1,000 MG/100 ML BAG 400 MG IVPB ×2 (08:04→21:48)
[2023-07-21] MEDS: PANTOPRAZOLE SODIUM IV 40 MG VIAL IV PUSH (08:04)
[2023-07-21] MEDS: ENOXAPARIN 40 MG/0.4 ML SYRINGE SUB-Q (08:05)
[2023-07-21] MEDS: MINERAL OIL/WHITE PETROLATUM OINTMENT 1 APPLIC EACH EYE ×2 (08:05→21:51)
[2023-07-21 08:06] LABS: Creatine Kinase 404 U/L (55-170)
--- NOTE | 2023-07-21 08:11 | PM.PNCARD ---
Progress Note: A&P Assessment and Plan (1) STEMI (ST elevation myocardial infarction): Code(s): I21.3 - ST elevation (STEMI) myocardial infarction of unspecified site Status: Acute (2) Cardiac arrest: Code(s): I46.9 - Cardiac arrest, cause unspecified Status: Acute Plan 57-year-old man with out of hospital cardiac arrest due to acute posterior infarction with occlusion of his mid circumflex. Following resuscitation he underwent successful PCI of his a target lesion. Unfortunately there appears to be evidence now of significant anoxic SHEET ROCK NAILER injury which of course is not unexpected. For now continue guideline directed medical therapy and ventilator support. Plans to evaluate neurological status tomorrow morning Ralph Arce MD [facility] Subjective Date/time seen: Date of service: 07/21/23 08:11 Interval history: Follow-up visit in this 57-year-old man with: Acute ST-elevation [place] with occlusion of his mid circumflex status post successful emergency PCI with drug-eluting stent with good anatomical and angiographic result. Unfortunately at home the event was marked by asystolic cardiac arrest and patient remains unresponsive on ventilator in the ICU. Today he is clinically unchanged hemodynamics are stable having some PVCs on the monitor. He is off sedation and is unresponsive. Some myoclonic jerking is noted. Plans for EEG and brain CT scan tomorrow morning. Poor prognosis discussed with the patient's who is at the bedside Exam Const: Other: Sedated white male appearing his stated age HENMT: Mouth: Yes moist mucous membranes Eyes: Sclera: sclerae normal Neck: Neck: supple Resp: Auscultation: clear to auscultation bilaterally Other: ventilator breath sounds Cardio: Rate: regular rate Rhythm: regular rhythm Other: no apparent murmur or gallop GI: Auscultation: normal bowel sounds Skin: General skin exam: normal color Neuro: Other: Unresponsive on ventilator support Extrem: General: normal to inspection Objective Data Vital Signs Vital Signs: Vital Signs - 24 hr 07/20/23 09:10 07/20/23 09:52 07/20/23 10:05 Temperature Pulse Rate 74 74 75 Respiratory Rate 18 Blood Pressure Pulse Oximetry 99 Oxygen Delivery Mechanical Ventilation Fraction of Inspired Oxygen 30 07/20/23 10:25 07/20/23 10:00 07/20/23 10:30 Temperature Pulse Rate 78 77 83 Respiratory Rate 18 18 18 Blood Pressure Pulse Oximetry Oxygen Delivery Fraction of Inspired Oxygen 07/20/23 08:17 07/20/23 09:17 07/20/23 10:00 Temperature 36.6 C 36.8 C 36.8 C Pulse Rate 72 72 72 Respiratory Rate 18 17 17 Blood Pressure 123/89 129/91 H 129/91 H Pulse Oximetry 100 99 99 Oxygen Delivery Fraction of Inspired Oxygen 07/20/23 11:43 07/20/23 10:35 07/20/23 12:00 Temperature 37.0 C 37.2 C Pulse Rate 95 78 93 Respiratory Rate 18 18 Blood Pressure 147/97 H 163/103 H Pulse Oximetry 99 99 99 Oxygen Delivery Mechanical Ventilation Fraction of Inspired Oxygen 30 07/20/23 12:02 07/20/23 12:00 07/20/23 13:25 Temperature 37.2 C Pulse Rate 81 Respiratory Rate 27 H Blood Pressure Pulse Oximetry Oxygen Delivery Fraction of Inspired Oxygen 40 07/20/23 13:02 07/20/23 13:30 07/20/23 13:35 Temperature 37.3 C Pulse Rate 83 80 Respiratory Rate 25 H 22 H Blood Pressure Pulse Oximetry Oxygen Delivery Fraction of Inspired Oxygen 07/20/23 13:40 07/20/23 13:45 07/20/23 13:50 Temperature Pulse Rate 89 85 77 Respiratory Rate 25 H 22 H 22 H Blood Pressure Pulse Oximetry Oxygen Delivery Fraction of Inspired Oxygen 07/20/23 10:30 07/20/23 10:30 07/20/23 10:30 Temperature Pulse Rate 72 72 72 Respiratory Rate 17 18 18 Blood Pressure Pulse Oximetry Oxygen Delivery Fraction of Inspired Oxygen 07/20/23 10:30 07/20/23 13:55 07/20/23 14:00 Tempera
[2023-07-21 08:50] LABS: Ammonia < 9 umol/L (9-30)
--- NOTE | 2023-07-21 09:20 | WPDINTPN ---
Progress Note: A&P Assessment and Plan (1) Cardiac arrest: Code(s): I46.9 - Cardiac arrest, cause unspecified Status: Acute Assessment and Plan: Patient presented after what appears to be asystole cardiac arrest which converted to VFib after CPR and epinephrine requiring defibrillation Diagnosed with STEMI in ER and status post PCI of circumflex coronary artery CTA was negative for any complication of aortic aneurysm or PE Now intubated and sedated Hemodynamically stable at this time Troponins reviewed Management of STEMI as below Evaluation and management of encephalopathy as below Echo Summary ? 1. Complete two-dimensional, color flow and Doppler transthoracic echocardiogram is performed. ? 2. Normal left ventricular size with posterior hypokinesia overall normal ejection fraction. ? 3. No significant valvular dysfunction. EF 50-55% grade 1 diastolic dysfunction (2) STEMI (ST elevation myocardial infarction): Code(s): I21.3 - ST elevation (STEMI) myocardial infarction of unspecified site Status: Acute Assessment and Plan: STEMI status post PCI Catheterization showed Right coronary dominant circulation with acute myocardial infarction with ST elevation resulting from acute thrombotic occlusion of the mid circumflex after the 1st obtuse marginal branch as detailed above now status post successful emergency PCI of the target lesion in the mid circumflex using the 3 x 22 mm Orsiro? drug-eluting stent with an excellent anatomical result. Echocardiogram as above Aspirin Brilinta ernst and ARB Hold statin for now due to elevated liver enzymes (3) Acute respiratory failure: Code(s): J96.00 - Acute respiratory failure, unspecified whether with hypoxia or hypercapnia Status: Acute Assessment and Plan: Acute Respiratory failure secondary to cardiac arrest and aspiration pneumonia Patient currently intubated and sedated Continue full mechanical ventilation support to prevent hypoxemia/hypercarbia and end organ damage. ABG and PCXR reviewed Treatment of pneumonia as below Low tidal volume ventilation strategy to prevent volutrauma Sedation holiday. Not a candidate for weaning at this time (4) Pneumonia: Code(s): J18.9 - Pneumonia, unspecified organism Status: Acute Assessment and Plan: Likely aspiration Pending blood and sputum culture Continue Zosyn Continue IV fluids (5) Hypertension: Code(s): I10 - Essential (primary) hypertension Status: Acute Assessment and Plan: Currently blood pressure is in control Continue metoprolol losartan (6) Encephalopathy: Code(s): G93.40 - Encephalopathy, unspecified Status: Acute (7) Electrolyte abnormality: Code(s): E87.8 - Other disorders of electrolyte and fluid balance, not elsewhere classified Status: Acute Assessment and Plan: potassium replacement ordered (8) Lactic acidosis: Code(s): E87.20 - Acidosis, unspecified Status: Acute Assessment and Plan: Likely secondary to cardiac arrest and possibly sepsis Lactic acidosis has cleared now Treatment of cardiac arrest and sepsis is as above (9) Aortic aneurysm: Code(s): I71.9 - Aortic aneurysm of unspecified site, without rupture Status: Acute Assessment and Plan: Patient was recently diagnosed with thoracic aortic aneurysm CTA done in ER shows 0.2 cm descending thoracic aortic aneurysm with no dissection or rupture Obtain records from [facility] (10) Anoxic brain injury: Code(s): G93.1 - Anoxic brain damage, not elsewhere classified Status: Acute Assessment and Plan: Patient had a cardiac arrest but as per ER physician report patient had purposeful movement post intubation in the ER before he received sedatives. Head CT showeds cerebral atherosclerosis and no other acute intracranial abnormality. 07/19 Versed and fentanyl switched to propofol.
[2023-07-21] MEDS: ASPIRIN 81 MG CHEWABLE TABLET PO (09:24)
[2023-07-21] MEDS: METOPROLOL TARTRATE 12.5 MG TABLET PO ×2 (09:24→21:51)
[2023-07-21] MEDS: TICAGRELOR 90 MG TABLET PO ×2 (09:24→21:51)
[2023-07-21] MEDS: LOSARTAN POTASSIUM 25 MG TABLET PO (09:25)
[2023-07-21] MEDS: POTASSIUM CHLORIDE 20 MEQ PACKET (FOR LIQUID) FEED TUBE (09:25)
[2023-07-21] MEDS: LABETALOL HCL INJ 100 MG/20 ML VIAL 20 MG IV PUSH (10:38)
[2023-07-21] MEDS: LACTATED RINGERS 1,000 ML 100 ML IV CONT ×2 (11:00→21:52)
[2023-07-21 11:19] LABS: Free T4 Free Thyroxine Reflex 1.51 ng/dL (0.78-2.19)
[2023-07-21 12:44] LABS: Total Triiodothyronine (T3) 1.05 NG/ML (0.97-1.69)
[2023-07-21 12:55] LABS: Glucose Point of Care 150 mg/dl (65-105)
[2023-07-21 17:23] LABS: Glucose Point of Care 128 mg/dl (65-105)
--- NOTE | 2023-07-21 20:46 | PC.NURSE ---
Spoke with MTS and updated pt condition and testing scheduled for tomorrow. MTS asks that we notify them approximately 3 hrs before any end of life decisions are made.
[2023-07-21] MEDS: PROPOFOL IV EMULSION 100 ML 19.3 MG IV CONT (22:04)
[2023-07-22] VITALS (42 sets, daily range): BP systolic 106–162; BP diastolic 76–102; PULSE 85–104; RESP 12–29; TEMP 37.3–38.4; O2SAT 98–100; BMI 27.3
[2023-07-22 00:29] LABS: Glucose Point of Care 146 mg/dl (65-105)
[2023-07-22] MEDS: PROPOFOL IV EMULSION 100 ML 19.3 MG IV CONT (02:35)
[2023-07-22] MEDS: PIPERACILLIN/TAZ 4.5G/NS 100ML 4.5 GM/100 ML BAG IVPB ×4 (02:36→20:47)
[2023-07-22 04:15] LABS: Hematocrit 45.1 % (42.0-52.0); Hemoglobin 15.1 g/dL (14.0-18.0); Mean Corpuscular HGB Conc 33.5 g/dl (32-36); Mean Corpuscular Hemoglobin 31.3 pg (26-34); Mean Corpuscular Volume 93.6 fl (80-100); Platelet Count Result 265 k/mm3 (150-375); Red Blood Count 4.82 M/mm3 (4.6-6.20); Red Cell Distribution Width 12.8 % (11.5-14.5)
[2023-07-22 04:30] LABS: Alanine Aminotransferase 79 U/L (6-50); Alkaline Phosphatase 67 U/L (38-126); Anion Gap 4 mmol/L (4-12); Aspartate Amino Transferase 77 U/L (17-59); Bilirubin,Total 0.7 mg/dL (0.2-1.3); Blood Urea Nitrogen 12 mg/dL (9-20); Calcium 8.9 mg/dL (8.4-10.2); Carbon Dioxide 29 mmol/L (22-30); Chloride 107 mmol/L (98-107); Creatine Kinase 186 U/L (55-170); Estimated CRCL calculation 111 ml/min; Estimated Glomerular Filt Rate > 60; Glucose 115 mg/dL (65-110); Magnesium 1.8 mg/dL (1.6-2.3); Potassium 3.7 mmol/L (3.4-5.0); Sodium 140 mmol/L (137-145); Triglycerides 116 mg/dL (<150)
[2023-07-22 05:12] LABS: Alveolar/Arterial O2 Gradient 69.5 mmHg; Base Excess ABG 3.9 mEq/l (+/-2.0); Carboxyhemoglobin 0.4 % THb (0-2.0); Fractional Inspired Oxygen 30 %; Methemoglobin ABG 0.1 %THb (0-1.5); Oxygen Content ABG 19.5 %vol (16.0-22.0); Oxygen Saturation ABG 97.7 % (95.0-100.0); Oxyhemoglobin 97.3 % THb (90.0-100.0); PCO2 ABG 40.4 mmHg (35.0-45.0); PO2 ABG 96.9 mmHg (80.0-100.0); PO2 FiO2 Ratio Arterial Blood 3.23 %; Reduced Hemoglobin 2.2 %THb (0-5.0); Total Hemoglobin 14.2 g/dL (12.0-18.0); pH ABG 7.459 (7.350-7.450)
[2023-07-22 05:13] LABS: Device VENTILATOR; Modified Allen's Test Pass; Site Drawn RIGHT RADIAL
[2023-07-22 05:14] LABS: Arterial Blood Gas PEEP 5 cmH2O; Arterial Blood Gas Tidal Volume 400 ml; Arterial Blood Gas Vent Mode CMV; Arterial Blood Gas Ventilator rate 15 /MIN
[2023-07-22 06:21] LABS: Glucose Point of Care 102 mg/dl (65-105)
--- NOTE | 2023-07-22 08:10 | WPDINTPN ---
Progress Note: A&P Assessment and Plan (1) Cardiac arrest: Code(s): I46.9 - Cardiac arrest, cause unspecified Status: Acute Assessment and Plan: Patient presented after what appears to be asystole cardiac arrest which converted to VFib after CPR and epinephrine requiring defibrillation Diagnosed with STEMI in ER and status post PCI of circumflex coronary artery CTA was negative for any complication of aortic aneurysm or PE Now intubated and sedated Hemodynamically stable at this time Troponins reviewed Management of STEMI as below Evaluation and management of encephalopathy as below Echo Summary ? 1. Complete two-dimensional, color flow and Doppler transthoracic echocardiogram is performed. ? 2. Normal left ventricular size with posterior hypokinesia overall normal ejection fraction. ? 3. No significant valvular dysfunction. EF 50-55% grade 1 diastolic dysfunction (2) Anoxic brain injury: Code(s): G93.1 - Anoxic brain damage, not elsewhere classified Status: Acute Assessment and Plan: Patient had a cardiac arrest but as per ER physician report patient had purposeful movement post intubation in the ER before he received sedatives. Head CT showeds cerebral atherosclerosis and no other acute intracranial abnormality. 07/19 Versed and fentanyl switched to propofol. Aggressive Normothermia was maintained with Tylenol and cooling blanket 07/20 on sedation holiday patient not responsive to pain showing any purposeful activity suggestive of anoxic brain injury. Exam as above Ammonia normal. Thyroid function appears normal 07/[address] was negative for any acute change Pending EEG neurology consult Continue Keppra Continue neuro monitoring Improvement in Exam as above (3) STEMI (ST elevation myocardial infarction): Code(s): I21.3 - ST elevation (STEMI) myocardial infarction of unspecified site Status: Acute Assessment and Plan: STEMI status post PCI Catheterization showed Right coronary dominant circulation with acute myocardial infarction with ST elevation resulting from acute thrombotic occlusion of the mid circumflex after the 1st obtuse marginal branch as detailed above now status post successful emergency PCI of the target lesion in the mid circumflex using the 3 x 22 mm Orsiro? drug-eluting stent with an excellent anatomical result. Echocardiogram as above Aspirin Brilinta ernst and ARB Resume statins as liver enzymes are improving (4) Acute respiratory failure: Code(s): J96.00 - Acute respiratory failure, unspecified whether with hypoxia or hypercapnia Status: Acute Assessment and Plan: Acute Respiratory failure secondary to cardiac arrest and aspiration pneumonia Patient currently intubated and sedated Continue full mechanical ventilation support to prevent hypoxemia/hypercarbia and end organ damage. ABG and PCXR reviewed Treatment of pneumonia as below Low tidal volume ventilation strategy to prevent volutrauma Sedation holiday. Not a candidate for weaning at this time (5) Pneumonia: Code(s): J18.9 - Pneumonia, unspecified organism Status: Acute Assessment and Plan: Likely aspiration Pending blood and sputum culture Continue Zosyn Continue IV fluids (6) Hypertension: Code(s): I10 - Essential (primary) hypertension Status: Acute Assessment and Plan: Currently blood pressure is in control Continue metoprolol losartan (7) Electrolyte abnormality: Code(s): E87.8 - Other disorders of electrolyte and fluid balance, not elsewhere classified Status: Acute Assessment and Plan: potassium replacement ordered (8) Lactic acidosis: Code(s): E87.20 - Acidosis, unspecified Status: Acute Assessment and Plan: Likely secondary to cardiac arrest and possibly sepsis Lactic acidosis has cleared now Treatment of cardiac arrest and sepsis is as above (9) Aortic aneurysm: Cod
[2023-07-22] MEDS: POTASSIUM CHLORIDE 20 MEQ PACKET (FOR LIQUID) FEED TUBE (08:55)
[2023-07-22] MEDS: ENOXAPARIN 40 MG/0.4 ML SYRINGE SUB-Q (08:55)
[2023-07-22] MEDS: ASPIRIN 81 MG CHEWABLE TABLET PO (08:55)
[2023-07-22] MEDS: levETIRAcetam 1000MG/NACL100ML 1,000 MG/100 ML BAG 400 MG IVPB ×2 (08:55→19:32)
[2023-07-22] MEDS: TICAGRELOR 90 MG TABLET PO ×2 (08:59→19:33)
[2023-07-22] MEDS: ROSUVASTATIN 10 MG TABLET PO (08:59)
[2023-07-22] MEDS: LOSARTAN POTASSIUM 25 MG TABLET PO (08:59)
[2023-07-22] MEDS: PANTOPRAZOLE SODIUM IV 40 MG VIAL IV PUSH (08:59)
[2023-07-22] MEDS: METOPROLOL TARTRATE 12.5 MG TABLET PO ×2 (08:59→19:34)
[2023-07-22] MEDS: MINERAL OIL/WHITE PETROLATUM OINTMENT 1 APPLIC EACH EYE ×2 (09:00→19:34)
[2023-07-22] MEDS: LACTATED RINGERS 1,000 ML 100 ML IV CONT (09:00)
--- NOTE | 2023-07-22 11:10 | WPDNEUROLOGY ---
Neurology EEG Report General Information Date of Study: 07/22/23 TEST Electroencephalogram DIAGNOSIS post anoxic encephalopathy CONDITION OF RECORDING intensive care unit EEG NUMBER [id number] CLINICAL HISTORY history of cardiac arrest. The patient has been unresponsive. . Propofol was turned off for hour before this recording began. EEG DESCRIPTION Background activity consists of posterior dominant rhythm in theta range at approximately 6-7 hertz with an amplitude of 15-35 microvolts which appears moderately formed. Anteriorly low amplitude mixed frequency activity was seen. No focal or paroxysmal epileptiform abnormalities were noted. Stage 2 sleep was not recorded. IMPRESSION This is an abnormal EEG due to presence of mild diffuse background slowing suggests a generalized cephalopathy. However no focal or paroxysmal epileptiform abnormality was noted. A follow-up study may be helpful if clinically relevant.
[2023-07-22 11:31] LABS: Glucose Point of Care 152 mg/dl (65-105)
[2023-07-22] MEDS: PROPOFOL IV EMULSION 100 ML 13.79 MG IV CONT (12:04)
--- NOTE | 2023-07-22 13:49 | PM.PNCARD ---
Progress Note: A&P Assessment and Plan (1) STEMI (ST elevation myocardial infarction): Code(s): I21.3 - ST elevation (STEMI) myocardial infarction of unspecified site Status: Acute Assessment and Plan: Cardiac catheterization showed right coronary dominant circulation with acute myocardial infarction with ST elevation resulting from acute thrombotic occlusion of the mid circumflex after the 1st obtuse marginal branch status post successful emergency PCI of the target lesion in the mid circumflex using the 3mm x 22 mm Orsiro drug-eluting stent with an excellent anatomical result. Continue DAPT with ASA, Brilinta Continue statin Continue other standard medical therapy including metoprolol and losartan (2) Cardiac arrest: Code(s): I46.9 - Cardiac arrest, cause unspecified Status: Acute Assessment and Plan: In setting of STEMI, now s/p PCI. Echocardiogram shows LVEF 50-55% with posterior hypokinesia; no significant valvular disease. (3) Anoxic brain injury: Code(s): G93.1 - Anoxic brain damage, not elsewhere classified Status: Acute Assessment and Plan: In setting of cardiac arrest. Neurology is following. Subjective Date/time seen: 07/22/23 13:49 Interval history: Cardiology follow up for STEMI, CAD, cardiac arrest No acute changes overnight. Patient remains intubated and sedated. Hemodynamically stable. Review of Systems Review of Systems: ROS unobtainable: Yes unobtainable due to endotracheal tube and unobtainable due to mental status Exam Const: Other: Sedated white male appearing his stated age HENMT: Mouth: Yes moist mucous membranes Eyes: Sclera: sclerae normal Neck: Neck: supple Resp: Auscultation: clear to auscultation bilaterally Other: ventilator breath sounds Cardio: Rate: regular rate Rhythm: regular rhythm Other: no apparent murmur or gallop GI: Auscultation: normal bowel sounds Skin: General skin exam: normal color Neuro: Other: Unresponsive on ventilator support Extrem: General: normal to inspection Objective Data Vital Signs Vital Signs: Vital Signs - 24 hr 07/21/23 14:00 07/21/23 14:34 07/21/23 16:00 Temperature 37.6 C H 37.8 C H Pulse Rate 76 90 85 Respiratory Rate 19 17 Blood Pressure 138/89 133/90 Pulse Oximetry 100 99 100 Oxygen Delivery Mechanical Ventilation Fraction of Inspired Oxygen 30 07/21/23 14:00 07/21/23 17:03 07/21/23 17:43 Temperature Pulse Rate 76 93 107 H Respiratory Rate 30 H Blood Pressure Pulse Oximetry 99 Oxygen Delivery Mechanical Ventilation Fraction of Inspired Oxygen 30 07/21/23 17:44 07/21/23 16:00 07/21/23 16:00 Temperature Pulse Rate 93 Respiratory Rate 19 Blood Pressure Pulse Oximetry 100 Oxygen Delivery Mechanical Ventilation Fraction of Inspired Oxygen 30 30 07/21/23 18:00 07/21/23 18:00 07/21/23 16:00 Temperature 37.9 C H Pulse Rate 96 95 87 Respiratory Rate 20 20 Blood Pressure 144/86 H Pulse Oximetry 99 Oxygen Delivery Fraction of Inspired Oxygen 07/21/23 18:00 07/21/23 19:42 07/21/23 21:17 Temperature Pulse Rate 95 110 H 115 H Respiratory Rate 24 H Blood Pressure Pulse Oximetry 97 Oxygen Delivery Mechanical Ventilation Fraction of Inspired Oxygen 30 07/21/23 21:51 07/21/23 22:04 07/21/23 22:04 Temperature Pulse Rate 111 H 109 H 109 H Respiratory Rate 24 H 24 H Blood Pressure Pulse Oximetry Oxygen Delivery Fraction of Inspired Oxygen 07/21/23 20:00 07/21/23 20:00 07/21/23 20:00 Temperature Pulse Rate 108 H Respiratory Rate Blood Pressure Pulse Oximetry 99 Oxygen Delivery Mechanical Ventilation Fraction of Inspired Oxygen 30 30 07/21/23 20:00 07/21/23 22:00 07/21/23 22:00 Temperature 38.1 C H 38.2 C H Pulse Rate 108 H 108 H 108 H Respiratory Rate 23 H 25 H Blood Pressure 151/100 H 155/
[2023-07-22] MEDS: ACETAMINOPHEN 325 MG TABLET 650 MG PO (17:17)
[2023-07-22] MEDS: PROPOFOL IV EMULSION 100 ML 16.54 MG IV CONT (18:01)
[2023-07-22 18:20] LABS: Glucose Point of Care 132 mg/dl (65-105)
--- NOTE | 2023-07-22 18:32 | WPDNEURCNPN ---
Assessment and Plan Assessment and plan (1) Anoxic brain injury: Code(s): G93.1 - Anoxic brain damage, not elsewhere classified Status: Acute (2) STEMI (ST elevation myocardial infarction): Code(s): I21.3 - ST elevation (STEMI) myocardial infarction of unspecified site Status: Acute Plan I spoke to the patient's nurse and they his and daughter and subsequently to the exhaust machine operator and made them aware of my findings. Supportive care is in order. The brainstem function are present but of course sluggish. neurology service will follow him admitted it the patient already on Keppra he may be continued. His family members seemed to understand the situation from Neurology point of view. All their questions were answered. Consult date: 07/22/23 Time Seen: 18:32 Reason for consult: hypoxic ischemic encephalopathy HPI: Andrews Sosa is a 57 year old male presented to the hospital with cardiac arrest and was in asystole and required cardiac resuscitation and DrAlireza Converted to ventricular fibrillation which was surgically managed he was found to have a severe coronary stenosis which had the not been addressed by the cardiology team. Patient has not woken up and is on ventilatory support at this time. And when the propofol was turned off he seemed to be somewhat better but did not make any eye contact or communicate. He is still intubated. He has been put back on propofol at this time. EEG was performed an hour after propofol was discontinued and shows mild diffuse background slowing but no focal or paroxysmal epileptiform abnormality was noted. He was just below and has been maintained on that. He has not had any seizure-like activity. Prior to the cardiac arrest he did not have any significant neurological issues. Review of Systems Review of Systems: ROS unobtainable: Yes unobtainable due to medical condition PMFSH Past Medical History Medical History BMI between 19-24,adult Colon cancer screening Encounter to establish care Family history of [place] (myocardial infarction) Osteoarthritis of hands, bilateral Prostate cancer screening Wellness examination Family History Family History Mother , at 74 from Stroke Diabetes mellitus Acute myocardial infarction Cerebrovascular accident Father , at 54 from Heart Attack Acute myocardial infarction Social History Social History Smoking packs per day: 1.5 Smoking cigarettes per day: 30.0 Years smoked: 20 Smoking pack-years: 30.00 Smoking status: Former smoker Tobacco type: cigarettes Alcohol intake: never Alcohol use details: Beer occasionally Substance use: current Substance use type: marijuana Last use: 07/19/23 Spiritual care concerns: No Meds Home Medications and Allergies Home Medications Medication Instructions Recorded Confirmed Type metoprolol succinate 25 mg 25 mg PO HS 07/20/23 07/20/23 History tablet,extended release 24 hr Allergies Allergy/AdvReac Type Severity Reaction Status Date / Time No Known Allergies Allergy Verified 07/20/23 02:53 Vital Signs Vital Signs - 24 hr 07/21/23 19:42 07/21/23 21:17 07/21/23 21:51 Temperature Pulse Rate 110 H 115 H 111 H Respiratory Rate 24 H Blood Pressure Pulse Oximetry 97 Oxygen Delivery Mechanical Ventilation Fraction of Inspired Oxygen 30 07/21/23 22:04 07/21/23 22:04 07/21/23 20:00 Temperature Pulse Rate 109 H 109 H Respiratory Rate 24 H 24 H Blood Pressure Pulse Oximetry 99 Oxygen Delivery Mechanical Ventilation Fraction of Inspired Oxygen 30 07/21/23 20:00 07/21/23 20:00 07/21/23 20:00 Temperature 38.1 C H Pulse Rate 108 H 108 H Respiratory Rate 23 H Blood Pressure 151/100 H Pulse Oximetry 99 Oxyg
[2023-07-23] VITALS (42 sets, daily range): BP systolic 96–137; BP diastolic 68–97; PULSE 68–96; RESP 15–25; TEMP 37.4–37.9; O2SAT 95–100
[2023-07-23] MEDS: PROPOFOL IV EMULSION 100 ML 16.54 MG IV CONT (00:06)
[2023-07-23 00:10] LABS: Glucose Point of Care 96 mg/dl (65-105)
[2023-07-23] MEDS: PIPERACILLIN/TAZ 4.5G/NS 100ML 4.5 GM/100 ML BAG IVPB ×4 (04:08→20:29)
[2023-07-23 04:13] LABS: Hematocrit 45.3 % (42.0-52.0); Hemoglobin 14.5 g/dL (14.0-18.0); Mean Corpuscular Hemoglobin 31.5 pg (26-34); Mean Corpuscular Volume 98.3 fl (80-100); Mean Platelet Volume 9.2 fl (7.4-10.4); Platelet Count Result 235 k/mm3 (150-375); Red Blood Count 4.61 M/mm3 (4.6-6.20); Red Cell Distribution Width 12.8 % (11.5-14.5); White Blood Count 9.2 K/mm3 (4.5-10.0)
[2023-07-23 04:28] LABS: Alanine Aminotransferase 71 U/L (6-50); Albumin Level 3.9 g/dL (3.5-5.1); Alkaline Phosphatase 56 U/L (38-126); Anion Gap 9 mmol/L (4-12); Aspartate Amino Transferase 72 U/L (17-59); Bilirubin,Total 0.7 mg/dL (0.2-1.3); Blood Urea Nitrogen 13 mg/dL (9-20); Calcium 8.9 mg/dL (8.4-10.2); Carbon Dioxide 21 mmol/L (22-30); Chloride 109 mmol/L (98-107); Estimated CRCL calculation 111 ml/min; Estimated Glomerular Filt Rate > 60; Glucose 111 mg/dL (65-110); Sodium 139 mmol/L (137-145)
[2023-07-23 05:23] LABS: Alveolar/Arterial O2 Gradient 69.6 mmHg; Base Excess ABG 3.2 mEq/l (+/-2.0); Carboxyhemoglobin 0.5 % THb (0-2.0); Fractional Inspired Oxygen 30 %; HCO3 ABG 27.5 mEq/l (22.0-26.0); Oxygen Content ABG 19.6 %vol (16.0-22.0); Oxygen Saturation ABG 97.6 % (95.0-100.0); PCO2 ABG 40.9 mmHg (35.0-45.0); PO2 ABG 96.2 mmHg (80.0-100.0); PO2 FiO2 Ratio Arterial Blood 3.21 %; Reduced Hemoglobin 2.5 %THb (0-5.0); Total Hemoglobin 14.3 g/dL (12.0-18.0); pH ABG 7.446 (7.350-7.450)
[2023-07-23 05:24] LABS: Arterial Blood Gas Vent Mode CMV; Arterial Blood Gas Ventilator rate 14 /MIN; Device VENTILATOR; Modified Allen's Test Pass; Site Drawn RIGHT RADIAL
[2023-07-23 05:25] LABS: Arterial Blood Gas PEEP 5 cmH2O; Arterial Blood Gas Tidal Volume 380 ml
[2023-07-23] MEDS: ENOXAPARIN 40 MG/0.4 ML SYRINGE SUB-Q (08:08)
[2023-07-23] MEDS: ASPIRIN 81 MG CHEWABLE TABLET PO (08:08)
[2023-07-23] MEDS: ROSUVASTATIN 10 MG TABLET PO (08:11)
[2023-07-23] MEDS: PANTOPRAZOLE SODIUM IV 40 MG VIAL IV PUSH (08:11)
[2023-07-23] MEDS: LOSARTAN POTASSIUM 25 MG TABLET PO (08:11)
[2023-07-23] MEDS: TICAGRELOR 90 MG TABLET PO ×2 (08:11→20:30)
[2023-07-23] MEDS: METOPROLOL TARTRATE 12.5 MG TABLET PO ×2 (08:13→20:29)
[2023-07-23] MEDS: MINERAL OIL/WHITE PETROLATUM OINTMENT 1 APPLIC EACH EYE ×2 (08:18→20:29)
[2023-07-23] MEDS: dexmedeTOMIDine 400 MCG/100 ML 400 MCG/100 ML BAG IV CONT (09:16)
[2023-07-23] MEDS: levETIRAcetam 1000MG/NACL100ML 1,000 MG/100 ML BAG 400 MG IVPB ×2 (09:16→20:28)
[2023-07-23] MEDS: PROPOFOL IV EMULSION 100 ML 11.03 MG IV CONT (09:30)
[2023-07-23 11:32] LABS: Glucose Point of Care 115 mg/dl (65-105)
--- NOTE | 2023-07-23 12:01 | WPDINTPN ---
Progress Note: A&P Assessment and Plan (1) Cardiac arrest: Code(s): I46.9 - Cardiac arrest, cause unspecified Status: Acute Assessment and Plan: Patient presented after what appears to be asystole cardiac arrest which converted to VFib after CPR and epinephrine requiring defibrillation Diagnosed with STEMI in ER and status post PTCA/PCI with ALEXANDR x1 to mid circumflex CTA was negative for any complication of aortic aneurysm or PE Remains intubated and sedated Hemodynamically stable at this time Troponins reviewed Management of STEMI as below Evaluation and management of encephalopathy as below Echo Summary ? 1. Complete two-dimensional, color flow and Doppler transthoracic echocardiogram is performed. ? 2. Normal left ventricular size with posterior hypokinesia overall normal ejection fraction. ? 3. No significant valvular dysfunction. EF 50-55% grade 1 diastolic dysfunction (2) Anoxic brain injury: Code(s): G93.1 - Anoxic brain damage, not elsewhere classified Status: Acute Assessment and Plan: Patient had a cardiac arrest but as per ER physician report patient had purposeful movement post intubation in the ER before he received sedatives. Head CT showeds cerebral atherosclerosis and no other acute intracranial abnormality. 07/19 Versed and fentanyl switched to propofol. Aggressive Normothermia was maintained with Tylenol and cooling blanket 07/20 on sedation holiday patient not responsive to pain showing any purposeful activity suggestive of anoxic brain injury. Exam as above Ammonia normal. Thyroid function appears normal 07/[address] was negative for any acute change 07/21: EEG This is an abnormal EEG due to presence of mild diffuse background slowing suggests a generalized cephalopathy.? However no focal or paroxysmal epileptiform abnormality was noted.? A follow-up study may be helpful if clinically relevant Continue [facility] Continue neuro monitoring Improvement in Exam as above -likely repeat EEG this week (3) STEMI (ST elevation myocardial infarction): Code(s): I21.3 - ST elevation (STEMI) myocardial infarction of unspecified site Status: Acute Assessment and Plan: STEMI status post PCI Catheterization showed Right coronary dominant circulation with acute myocardial infarction with ST elevation resulting from acute thrombotic occlusion of the mid circumflex after the 1st obtuse marginal branch as detailed above now status post successful emergency PCI of the target lesion in the mid circumflex using the 3 x 22 mm Orsiro? drug-eluting stent with an excellent anatomical result. Echocardiogram as above Aspirin Brilinta ernst and ARB Continue statins now that the enzymes are trending down (4) Acute respiratory failure: Code(s): J96.00 - Acute respiratory failure, unspecified whether with hypoxia or hypercapnia Status: Acute Assessment and Plan: Acute Respiratory failure secondary to cardiac arrest and aspiration pneumonia Patient currently intubated and sedated Continue full mechanical ventilation support to prevent hypoxemia/hypercarbia and end organ damage. On FiO2 of 30% and PEEP of 5 ABG and PCXR reviewed Treatment of pneumonia as below Low tidal volume ventilation strategy to prevent volutrauma Sedation holiday. Not a candidate for weaning at this time (5) Pneumonia: Code(s): J18.9 - Pneumonia, unspecified organism Status: Acute Assessment and Plan: Likely aspiration 07/19: Blood culture negative x2 07/19: Sputum culture showing moderate Gram-negative bacilli and moderate Gram-positive cocci in chains Continue Zosyn Continue IV fluids (6) Hypertension: Code(s): I10 - Essential (primary) hypertension Status: Acute Assessment and Plan: Currently blood pressure is in control Continue metoprolol, Losartan (7) Electrolyte abnormality: Code(s): E87.8 - Other disorders of electrolyte and fluid bal
--- NOTE | 2023-07-23 12:19 | PM.PNCARD ---
Progress Note: A&P Assessment and Plan (1) STEMI (ST elevation myocardial infarction): Code(s): I21.3 - ST elevation (STEMI) myocardial infarction of unspecified site Status: Acute Assessment and Plan: Cardiac catheterization showed right coronary dominant circulation with acute myocardial infarction with ST elevation resulting from acute thrombotic occlusion of the mid circumflex after the 1st obtuse marginal branch status post successful emergency PCI of the target lesion in the mid circumflex using the 3mm x 22 mm Orsiro?drug-eluting stent with an excellent anatomical result. Echocardiogram shows LVEF 50-55% with posterior hypokinesia; no significant valvular disease. Continue ASA, Brilinta, statin, beta ernst. (2) Cardiac arrest: Code(s): I46.9 - Cardiac arrest, cause unspecified Status: Acute Assessment and Plan: In setting of STEMI, now s/p PCI. Echocardiogram shows LVEF 50-55% with posterior hypokinesia; no significant valvular disease. Continue management as per ICU team. (3) Anoxic brain injury: Code(s): G93.1 - Anoxic brain damage, not elsewhere classified Status: Acute Assessment and Plan: Neurology consulted and following along. (4) Acute respiratory failure: Code(s): J96.00 - Acute respiratory failure, unspecified whether with hypoxia or hypercapnia Status: Acute Assessment and Plan: Remains intubated. As per ICU team. (5) Pneumonia: Code(s): J18.9 - Pneumonia, unspecified organism Status: Acute Assessment and Plan: On antibiotics as per ICU team. (6) Hypertension: Code(s): I10 - Essential (primary) hypertension Status: Acute Assessment and Plan: Stable. Continue Losartan. Plan Recommendations and plan discussed with Building Construction Superintendent. Subjective Date/time seen: 07/23/23 12:19 Interval history: Reason for visit: STEMI, cardiac arrest HPI: This is a 57-year-old man with an apparent history of dyslipidemia and a reported history of aortic aneurysm.? The details of this are unknown to us.? He presents to the hospital here following resuscitation from cardiac arrest.? He apparently was at home with family and was suddenly unresponsive and collapsed.? 911 was called and I was told he was found in asystole.? Resuscitation was then carried out and there were episodes of ventricular fibrillation as well as PEA.? Upon arrival here he was intubated and electrocardiogram done following resuscitation showed obvious inferior ST elevation with anterior precordial ST depression.? He has no previous known history of coronary artery disease according to the information I was given.? There was no further history available as he is unresponsive and intubated and on ventilator support. Date of service 07/20: Acute ST-elevation RI with occlusion of his mid circumflex status post successful emergency PCI with drug-eluting stent with good anatomical and angiographic result.? Unfortunately at home the event was marked by asystolic cardiac arrest and patient remains unresponsive on ventilator in the ICU. Today he is clinically unchanged hemodynamics are stable having some PVCs on the monitor.? He is off sedation and is unresponsive.? Some myoclonic jerking is noted.? Plans for EEG and brain CT scan tomorrow morning.? Poor prognosis discussed with the patient's who is at the bedside. Date of service 07/21: No acute changes overnight.? Patient remains intubated and sedated.? Hemodynamically stable. Date of service 07/22: Remains intubated, sedated. Review of Systems Review of Systems: ROS unobtainable: Yes unobtainable due to endotracheal tube Exam Const: Other: Critically ill male, on mechanical ventilation HENMT: Other: OETT in place Resp: Other: On mechanical ventilation Cardio: Rate: regular rate Rhythm: regular rhythm Skin: General skin exam: normal color Objective Data Vit
--- NOTE | 2023-07-23 12:25 | PCNFU ---
Nutrition Follow-Up Complete: Increased protein energy needs related to mechanical ventilation as evidenced by need for full tube feeding Goal: Meet estimated protein energy needs Patient is progressing towards goal. We will continue current goal. Pt current nutrition is Vital AF 1.2 at 50 ml/hr. Nutrition recommendation: goal rate at 70 ml/hr. Last recorded weight is 89.5 kg, down from 94.1 kg on admit. Bowel Motility: FMS Labs Reviewed:Glu 111 Meds Noted:Protonix, Precedex, Keppra, Lopressor. Skin: WNL Additional Notes: Patient remains on mechanical vent. Tube feedings are being tolerating of Vital AF 1.2 at 50ml/hr. Spoke with Personal Lines Insurance Advisor during rounds today recommending rate change to 70 ml/hr to meet 100% caloric needs. orders for Vital AF 1.2 at 70 ml//hr. Tube feeding providing 1848 kcal/115 gm protein/1249 ml water. Flush 30 ml q 4 hours. Agree with diet orders. Monitoring tube feeding tolerance, orders, vent settings, labs, weights, bowel movements Follow daily in ICU, reassess Tuesdays and Fridays
[2023-07-23] MEDS: dexmedeTOMIDine 400 MCG/100 ML 400 MCG/100 ML BAG 11.19 MCG IV CONT (16:52)
[2023-07-23 17:03] LABS: Glucose Point of Care 146 mg/dl (65-105)
[2023-07-23] MEDS: SODIUM CHLORIDE 0.9% IV 1,000 ML 999 ML IV CONT (17:19)
[2023-07-23 23:45] LABS: Glucose Point of Care 122 mg/dl (65-105)
[2023-07-24] VITALS (30 sets, daily range): BP systolic 91–108; BP diastolic 63–73; PULSE 60–76; RESP 11–22; TEMP 37.2–37.9; O2SAT 94–99
[2023-07-24] MEDS: PIPERACILLIN/TAZ 4.5G/NS 100ML 4.5 GM/100 ML BAG IVPB ×4 (03:27→20:27)
[2023-07-24 04:08] LABS: Hematocrit 38.1 % (42.0-52.0); Hemoglobin 12.3 g/dL (14.0-18.0); Mean Corpuscular HGB Conc 32.3 g/dl (32-36); Mean Corpuscular Hemoglobin 31.5 pg (26-34); Mean Corpuscular Volume 97.7 fl (80-100); Mean Platelet Volume 9.1 fl (7.4-10.4); Platelet Count Result 240 k/mm3 (150-375); Red Cell Distribution Width 12.9 % (11.5-14.5); White Blood Count 8.1 K/mm3 (4.5-10.0)
[2023-07-24 04:18] LABS: Alanine Aminotransferase 63 U/L (6-50); Albumin Level 3.6 g/dL (3.5-5.1); Alkaline Phosphatase 54 U/L (38-126); Anion Gap 6 mmol/L (4-12); Aspartate Amino Transferase 53 U/L (17-59); Bilirubin,Total 0.7 mg/dL (0.2-1.3); Blood Urea Nitrogen 21 mg/dL (9-20); Calcium 8.6 mg/dL (8.4-10.2); Carbon Dioxide 27 mmol/L (22-30); Chloride 110 mmol/L (98-107); Estimated CRCL calculation 111 ml/min; Estimated Glomerular Filt Rate > 60; Glucose 136 mg/dL (65-110); Magnesium 1.9 mg/dL (1.6-2.3); Potassium 3.8 mmol/L (3.4-5.0); Sodium 143 mmol/L (137-145); Triglycerides 128 mg/dL (<150)
[2023-07-24 05:19] LABS: Alveolar/Arterial O2 Gradient 62.2 mmHg; Base Excess ABG 2.4 mEq/l (+/-2.0); Carboxyhemoglobin 0.4 % THb (0-2.0); Fractional Inspired Oxygen 30 %; HCO3 ABG 26.9 mEq/l (22.0-26.0); Methemoglobin ABG 0.1 %THb (0-1.5); Oxygen Saturation ABG 97.8 % (95.0-100.0); Oxyhemoglobin 97.3 % THb (90.0-100.0); PCO2 ABG 41.6 mmHg (35.0-45.0); PO2 ABG 102.8 mmHg (80.0-100.0); PO2 FiO2 Ratio Arterial Blood 3.43 %; Reduced Hemoglobin 2.2 %THb (0-5.0); Total Hemoglobin 13.1 g/dL (12.0-18.0); pH ABG 7.429 (7.350-7.450)
[2023-07-24 05:20] LABS: Device VENTILATOR; Modified Allen's Test Pass; Site Drawn RIGHT RADIAL
[2023-07-24 05:21] LABS: Arterial Blood Gas PEEP 5 cmH2O; Arterial Blood Gas Tidal Volume 380 ml; Arterial Blood Gas Vent Mode CMV; Arterial Blood Gas Ventilator rate 14 /MIN
[2023-07-24] MEDS: dexmedeTOMIDine 400 MCG/100 ML 400 MCG/100 ML BAG 6.71 MCG IV CONT ×2 (05:56→13:39)
[2023-07-24] MEDS: levETIRAcetam 1000MG/NACL100ML 1,000 MG/100 ML BAG 400 MG IVPB ×2 (08:30→20:27)
[2023-07-24] MEDS: TICAGRELOR 90 MG TABLET PO ×2 (08:33→20:28)
[2023-07-24] MEDS: ASPIRIN 81 MG CHEWABLE TABLET PO (08:33)
[2023-07-24] MEDS: ROSUVASTATIN 10 MG TABLET PO (08:33)
[2023-07-24] MEDS: ENOXAPARIN 40 MG/0.4 ML SYRINGE SUB-Q (08:34)
[2023-07-24] MEDS: MINERAL OIL/WHITE PETROLATUM OINTMENT 1 APPLIC EACH EYE ×2 (08:34→20:27)
[2023-07-24] MEDS: PANTOPRAZOLE SODIUM IV 40 MG VIAL IV PUSH (08:50)
--- NOTE | 2023-07-24 09:27 | PM.PNCARD ---
Progress Note: A&P Assessment and Plan (1) STEMI (ST elevation myocardial infarction): Code(s): I21.3 - ST elevation (STEMI) myocardial infarction of unspecified site Status: Acute Assessment and Plan: Cardiac catheterization showed right coronary dominant circulation with acute myocardial infarction with ST elevation resulting from acute thrombotic occlusion of the mid circumflex after the 1st obtuse marginal branch status post successful emergency PCI of the target lesion in the mid circumflex using the 3mm x 22 mm Orsiro?drug-eluting stent with an excellent anatomical result. Echocardiogram shows LVEF 50-55% with posterior hypokinesia; no significant valvular disease. Continue ASA, Brilinta, statin, beta ernst. (2) Cardiac arrest: Code(s): I46.9 - Cardiac arrest, cause unspecified Status: Acute Assessment and Plan: In setting of STEMI, now s/p PCI. Echocardiogram shows LVEF 50-55% with posterior hypokinesia; no significant valvular disease. Continue management as per ICU team. (3) Anoxic brain injury: Code(s): G93.1 - Anoxic brain damage, not elsewhere classified Status: Acute Assessment and Plan: Neurology consulted and following along. CT Head negative for acute findings. EEG with presence of mild diffuse background slowing suggesting a generalized cephalopathy; no focal or paroxysmal epileptiform abnormality. (4) Acute respiratory failure: Code(s): J96.00 - Acute respiratory failure, unspecified whether with hypoxia or hypercapnia Status: Acute Assessment and Plan: Remains intubated. As per ICU team. (5) Pneumonia: Code(s): J18.9 - Pneumonia, unspecified organism Status: Acute Assessment and Plan: On antibiotics as per ICU team. (6) Hypertension: Code(s): I10 - Essential (primary) hypertension Status: Acute Assessment and Plan: Stable. Continue Losartan. Plan Recommendations and plan discussed with [employer]ation [employer]. Subjective Date/time seen: 07/24/23 09:27 Interval history: Reason for visit: STEMI, cardiac arrest HPI: This is a 57-year-old man with an apparent history of dyslipidemia and a reported history of aortic aneurysm.? The details of this are unknown to us.? He presents to the hospital here following resuscitation from cardiac arrest.? He apparently was at home with family and was suddenly unresponsive and collapsed.? 911 was called and I was told he was found in asystole.? Resuscitation was then carried out and there were episodes of ventricular fibrillation as well as PEA.? Upon arrival here he was intubated and electrocardiogram done following resuscitation showed obvious inferior ST elevation with anterior precordial ST depression.? He has no previous known history of coronary artery disease according to the information I was given.? There was no further history available as he is unresponsive and intubated and on ventilator support. Date of service 07/20: Acute ST-elevation CA with occlusion of his mid circumflex status post successful emergency PCI with drug-eluting stent with good anatomical and angiographic result.? Unfortunately at home the event was marked by asystolic cardiac arrest and patient remains unresponsive on ventilator in the ICU. Today he is clinically unchanged hemodynamics are stable having some PVCs on the monitor.? He is off sedation and is unresponsive.? Some myoclonic jerking is noted.? Plans for EEG and brain CT scan tomorrow morning.? Poor prognosis discussed with the patient's who is at the bedside. Date of service 07/21: No acute changes overnight.? Patient remains intubated and sedated.? Hemodynamically stable. Date of service 07/22: Remains intubated, sedated. Date of service 07/23: Remains intubated. Tele stable. Review of Systems Review of Systems: ROS unobtainable: Yes unobtainable due to endotracheal tube Exam Const: Other: Critically ill male,
--- NOTE | 2023-07-24 11:09 | PCFNICU ---
ICU Rounding Note: Pt current nutrition is Vital AF 1.2 at 50ml/hr. Nutrition recommendation: goal rate 70 ml/hr. Last recorded weight is 90.7 kg, down from 94.1 kg on admit. Bowel Motility: FMS Labs Reviewed: Glu 136, BUN 21 Meds Noted:Reglan, Keppra, Protonix, Precedex. Skin: WNL Additional Notes: Patient remains on mechanical vent. Plans for CT scan of head and spine today. Nursing reports tube feeding residuals had been elevated overnight. Tube feedings held and restarted. Plans to start Reglan today. Tube feedings currently at 50 ml/hr. Goal rate would be recommended at 70 ml/hr. Flush 30 ml q 4 hours. Agree with diet orders. Following daily in ICU rounds. Monitoring tube feeding tolerance, orders, vent settings, labs, weights, bowel movements Follow daily in ICU, reassess Tuesdays and Fridays.
[2023-07-24] MEDS: METOCLOPRAMIDE HCL INJ 10 MG/2 ML VIAL IV PUSH ×3 (12:05→23:43)
[2023-07-24 12:28] LABS: Glucose Point of Care 119 mg/dl (65-105)
--- NOTE | 2023-07-24 13:47 | WPDINTPN ---
Progress Note: A&P Assessment and Plan (1) Cardiac arrest: Code(s): I46.9 - Cardiac arrest, cause unspecified Status: Acute Assessment and Plan: Patient presented after what appears to be asystole cardiac arrest which converted to VFib after CPR and epinephrine requiring defibrillation Diagnosed with STEMI in ER and status post PTCA/PCI with ALEXANDR x1 to mid circumflex CTA was negative for any complication of aortic aneurysm or PE Remains intubated and sedated Hemodynamically stable at this time Troponins reviewed Management of STEMI as below Evaluation and management of encephalopathy as below Echo Summary ? 1. Complete two-dimensional, color flow and Doppler transthoracic echocardiogram is performed. ? 2. Normal left ventricular size with posterior hypokinesia overall normal ejection fraction. ? 3. No significant valvular dysfunction. EF 50-55% grade 1 diastolic dysfunction (2) Anoxic brain injury: Code(s): G93.1 - Anoxic brain damage, not elsewhere classified Status: Acute Assessment and Plan: Patient had a cardiac arrest but as per ER physician report patient had purposeful movement post intubation in the ER before he received sedatives. Head CT showeds cerebral atherosclerosis and no other acute intracranial abnormality. 07/19 Versed and fentanyl switched to propofol. Aggressive Normothermia was maintained with Tylenol and cooling blanket 07/20 on sedation holiday patient not responsive to pain showing any purposeful activity suggestive of anoxic brain injury. Exam as above Ammonia normal. Thyroid function appears normal 07/[address] was negative for any acute change 07/21: EEG This is an abnormal EEG due to presence of mild diffuse background slowing suggests a generalized cephalopathy.? However no focal or paroxysmal epileptiform abnormality was noted.? A follow-up study may be helpful if clinically relevant Continue [facility] Continue neuro monitoring Improvement in Exam as above -likely repeat EEG this week 07/23: CT brain noncontrast. No significant abnormality seen 07/23: CT cervical spine.No fracture or subluxation of the cervical spine.. Mild degenerative spondylolysis (3) STEMI (ST elevation myocardial infarction): Code(s): I21.3 - ST elevation (STEMI) myocardial infarction of unspecified site Status: Acute Assessment and Plan: STEMI status post PCI Catheterization showed Right coronary dominant circulation with acute myocardial infarction with ST elevation resulting from acute thrombotic occlusion of the mid circumflex after the 1st obtuse marginal branch as detailed above now status post successful emergency PCI of the target lesion in the mid circumflex using the 3 x 22 mm Orsiro? drug-eluting stent with an excellent anatomical result. Echocardiogram as above Aspirin Brilinta ernst and ARB Continue statins now that the enzymes are trending down (4) Acute respiratory failure: Code(s): J96.00 - Acute respiratory failure, unspecified whether with hypoxia or hypercapnia Status: Acute Assessment and Plan: Acute Respiratory failure secondary to cardiac arrest and aspiration pneumonia Patient currently intubated and sedated Continue full mechanical ventilation support to prevent hypoxemia/hypercarbia and end organ damage. On FiO2 of 30% and PEEP of 5 ABG and PCXR reviewed Treatment of pneumonia as below Low tidal volume ventilation strategy to prevent volutrauma Patient currently on Precedex infusion -placed on ASV mode of ventilation, will place patient on SBT in the morning (5) Pneumonia: Code(s): J18.9 - Pneumonia, unspecified organism Status: Acute Assessment and Plan: Likely aspiration 07/19: Blood culture negative x2 07/19: Sputum culture showing moderate Gram-negative bacilli and moderate Gram-positive cocci in chains Continue Zosyn Continue IV fluids (6) Hypertension: Code(s): I10 - Essential (primary)
[2023-07-24 18:22] LABS: Glucose Point of Care 119 mg/dl (65-105)
[2023-07-24] MEDS: METOPROLOL TARTRATE 12.5 MG TABLET PO (20:27)
[2023-07-24 23:58] LABS: Glucose Point of Care 128 mg/dl (65-105)
[2023-07-25] VITALS (18 sets, daily range): BP systolic 102–154; BP diastolic 67–86; PULSE 62–93; RESP 12–22; TEMP 37.6–38.2; O2SAT 96–100
[2023-07-25] MEDS: dexmedeTOMIDine 400 MCG/100 ML 400 MCG/100 ML BAG 6.71 MCG IV CONT (01:29)
[2023-07-25] MEDS: PIPERACILLIN/TAZ 4.5G/NS 100ML 4.5 GM/100 ML BAG IVPB (03:30)
[2023-07-25 04:08] LABS: Basophils Percent Auto 0.3 % (0.2-1.2); Eosinophils Absolute Auto 0.5 K/mm3 (0-0.3); Hematocrit 36.9 % (42.0-52.0); Hemoglobin 11.7 g/dL (14.0-18.0); Immature Granulocyte Absolute 0.04 K/mm3 (0.00-0.031); Immature Granulocyte Percent A 0.5 % (0-0.5); Lymphocytes Absolute Auto 1.07 K/mm3 (0.9-3.2); Lymphocytes Percent Auto 14.3 % (18.3-44.2); Mean Corpuscular HGB Conc 31.7 g/dl (32-36); Mean Corpuscular Hemoglobin 31.2 pg (26-34); Mean Corpuscular Volume 98.4 fl (80-100); Mean Platelet Volume 9.3 fl (7.4-10.4); Monocytes Absolute Auto 0.8 K/mm3 (0.1-0.6); Neutrophils Absolute Auto 5.1 K/mm3 (1.3-6.7); Neutrophils Percent Auto 68.9 % (45.5-73.1); Platelet Count Result 227 k/mm3 (150-375); Red Blood Count 3.75 M/mm3 (4.6-6.20); Red Cell Distribution Width 12.5 % (11.5-14.5); White Blood Count 7.5 K/mm3 (4.5-10.0)
[2023-07-25 04:26] LABS: Alanine Aminotransferase 79 U/L (6-50); Albumin Level 3.6 g/dL (3.5-5.1); Alkaline Phosphatase 49 U/L (38-126); Anion Gap 3 mmol/L (4-12); Aspartate Amino Transferase 62 U/L (17-59); Bilirubin,Total 0.4 mg/dL (0.2-1.3); Blood Urea Nitrogen 27 mg/dL (9-20); Calcium 8.4 mg/dL (8.4-10.2); Carbon Dioxide 28 mmol/L (22-30); Chloride 109 mmol/L (98-107); Estimated CRCL calculation 111 ml/min; Estimated Glomerular Filt Rate > 60; Glucose 132 mg/dL (65-110); Phosphorus 3.4 mg/dL (2.5-4.5); Potassium 3.8 mmol/L (3.4-5.0); Sodium 140 mmol/L (137-145)
[2023-07-25 05:29] LABS: Alveolar/Arterial O2 Gradient 71.2 mmHg; Base Excess ABG 4.4 mEq/l (+/-2.0); Carboxyhemoglobin 0.3 % THb (0-2.0); Fractional Inspired Oxygen 30 %; Methemoglobin ABG 0.1 %THb (0-1.5); Oxygen Content ABG 18.7 %vol (16.0-22.0); Oxygen Saturation ABG 97.8 % (95.0-100.0); Oxyhemoglobin 97.1 % THb (90.0-100.0); PCO2 ABG 38.5 mmHg (35.0-45.0); PO2 ABG 97.5 mmHg (80.0-100.0); PO2 FiO2 Ratio Arterial Blood 3.25 %; Reduced Hemoglobin 2.5 %THb (0-5.0); Total Hemoglobin 13.6 g/dL (12.0-18.0)
[2023-07-25 05:31] LABS: Device VENTILATOR; Modified Allen's Test Pass; Site Drawn RIGHT BRACHIAL
[2023-07-25 05:32] LABS: Arterial Blood Gas PEEP 5 cmH2O; Arterial Blood Gas Vent Mode ASV
[2023-07-25] MEDS: levETIRAcetam 1000MG/NACL100ML 1,000 MG/100 ML BAG 400 MG IVPB ×2 (08:10→22:22)
[2023-07-25] MEDS: TICAGRELOR 90 MG TABLET PO ×2 (08:11→22:21)
[2023-07-25] MEDS: ENOXAPARIN 40 MG/0.4 ML SYRINGE SUB-Q (08:11)
[2023-07-25] MEDS: ASPIRIN 81 MG CHEWABLE TABLET PO (08:11)
[2023-07-25] MEDS: ROSUVASTATIN 10 MG TABLET PO (08:11)
[2023-07-25] MEDS: MINERAL OIL/WHITE PETROLATUM OINTMENT 1 APPLIC EACH EYE ×2 (08:12→22:22)
[2023-07-25] MEDS: PANTOPRAZOLE SODIUM IV 40 MG VIAL IV PUSH (08:12)
[2023-07-25] MEDS: LOSARTAN POTASSIUM 25 MG TABLET PO (08:12)
[2023-07-25] MEDS: METOCLOPRAMIDE HCL INJ 10 MG/2 ML VIAL IV PUSH (08:14)
[2023-07-25] MEDS: METOPROLOL TARTRATE 12.5 MG TABLET PO ×2 (08:14→22:21)
[2023-07-25 09:54] LABS: Base Excess ABG 3.4 mEq/l (+/-2.0); Carboxyhemoglobin 0.4 % THb (0-2.0); Fractional Inspired Oxygen 30 %; HCO3 ABG 27.4 mEq/l (22.0-26.0); Methemoglobin ABG 0.3 %THb (0-1.5); Oxygen Content ABG 17.6 %vol (16.0-22.0); Oxygen Saturation ABG 98.4 % (95.0-100.0); Oxyhemoglobin 97.8 % THb (90.0-100.0); PCO2 ABG 39.4 mmHg (35.0-45.0); PO2 ABG 113.6 mmHg (80.0-100.0); PO2 FiO2 Ratio Arterial Blood 3.79 %; Reduced Hemoglobin 1.5 %THb (0-5.0); Total Hemoglobin 12.7 g/dL (12.0-18.0)
[2023-07-25 09:55] LABS: Device VENTILATOR; Site Drawn RIGHT BRACHIAL
[2023-07-25 09:56] LABS: Arterial Blood Gas PEEP 5 cmH2O; Arterial Blood Gas Pressure Support 8 cmH2O; Arterial Blood Gas Vent Mode SPONTANEOUS
--- NOTE | 2023-07-25 10:02 | PM.PNCARD ---
Progress Note: A&P Assessment and Plan (1) STEMI (ST elevation myocardial infarction): Code(s): I21.3 - ST elevation (STEMI) myocardial infarction of unspecified site Status: Acute Assessment and Plan: Cardiac catheterization showed right coronary dominant circulation with acute myocardial infarction with ST elevation resulting from acute thrombotic occlusion of the mid circumflex after the 1st obtuse marginal branch status post successful emergency PCI of the target lesion in the mid circumflex using the 3mm x 22 mm Orsiro?drug-eluting stent with an excellent anatomical result. Echocardiogram shows LVEF 50-55% with posterior hypokinesia; no significant valvular disease. Continue ASA, Brilinta, statin, beta ernst. (2) Cardiac arrest: Code(s): I46.9 - Cardiac arrest, cause unspecified Status: Acute Assessment and Plan: In setting of STEMI, now s/p PCI. Echocardiogram shows LVEF 50-55% with posterior hypokinesia; no significant valvular disease. Continue management as per ICU team. (3) Anoxic brain injury: Code(s): G93.1 - Anoxic brain damage, not elsewhere classified Status: Acute Assessment and Plan: Neurology consulted and following along. CT Head negative for acute findings. EEG with presence of mild diffuse background slowing suggesting a generalized cephalopathy; no focal or paroxysmal epileptiform abnormality. (4) Acute respiratory failure: Code(s): J96.00 - Acute respiratory failure, unspecified whether with hypoxia or hypercapnia Status: Acute Assessment and Plan: Remains intubated. As per ICU team. (5) Pneumonia: Code(s): J18.9 - Pneumonia, unspecified organism Status: Acute Assessment and Plan: On antibiotics as per ICU team. (6) Hypertension: Code(s): I10 - Essential (primary) hypertension Status: Acute Assessment and Plan: Stable. Continue Losartan. Plan Recommendations and plan discussed with [employer]. Subjective Date/time seen: 07/25/23 10:02 Interval history: Reason for visit: STEMI, cardiac arrest HPI: This is a 57-year-old man with an apparent history of dyslipidemia and a reported history of aortic aneurysm.? The details of this are unknown to us.? He presents to the hospital here following resuscitation from cardiac arrest.? He apparently was at home with family and was suddenly unresponsive and collapsed.? 911 was called and I was told he was found in asystole.? Resuscitation was then carried out and there were episodes of ventricular fibrillation as well as PEA.? Upon arrival here he was intubated and electrocardiogram done following resuscitation showed obvious inferior ST elevation with anterior precordial ST depression.? He has no previous known history of coronary artery disease according to the information I was given.? There was no further history available as he is unresponsive and intubated and on ventilator support. Date of service 07/20: Acute ST-elevation ID with occlusion of his mid circumflex status post successful emergency PCI with drug-eluting stent with good anatomical and angiographic result.? Unfortunately at home the event was marked by asystolic cardiac arrest and patient remains unresponsive on ventilator in the ICU. Today he is clinically unchanged hemodynamics are stable having some PVCs on the monitor.? He is off sedation and is unresponsive.? Some myoclonic jerking is noted.? Plans for EEG and brain CT scan tomorrow morning.? Poor prognosis discussed with the patient's who is at the bedside. Date of service 07/21: No acute changes overnight.? Patient remains intubated and sedated.? Hemodynamically stable. Date of service 07/22: Remains intubated, sedated. Date of service 07/23: Remains intubated. Tele stable. Date of service 07/24: Tele stable. On weaning trial this morning. Review of Systems Review of Systems: ROS unobtainable: Yes unobtainable du
--- NOTE | 2023-07-25 10:21 | WPDNEUROPN ---
Progress Note: A&P Assessment and Plan (1) Cardiac arrest: Code(s): I46.9 - Cardiac arrest, cause unspecified Status: Acute (2) STEMI (ST elevation myocardial infarction): Code(s): I21.3 - ST elevation (STEMI) myocardial infarction of unspecified site Status: Acute (3) Anoxic brain injury: Code(s): G93.1 - Anoxic brain damage, not elsewhere classified Status: Acute Plan Mr. Sosa is a 57 year old male currently admitted post-cardiac arrest due to STEMI s/p PCI, with concerns for possible anoxic brain injury. Several CT head have been done, non showing any significant changes. Routine EEG showed mild slowing of background. He has been extubated. Mental status appears to be appropriate. He is weak in all four extremities which may be due to deconditioning. If no improvement, would recommend MRI brain to evaluate for anoxic injury related to arrest. He has not had any seizures so Keppra can be discontinued. Subjective Date/time seen: 07/25/23 10:21 Interval history: Mr. Sosa is a 57 year old male with a history of hypertension and aortic aneurysm who is currently admitted post cardiac arrest. Patient was found down by his . EMS was called. Patient was found to be in asystole, received CPR/epinephrine, went into V fib and was shocked twice before ROSC was obtained. He was intubated on site and brought to the ER. In the ER, patient reported had purposeful movement while being assessed by ER physician. He was pulling on lines and ET tube so he was started on sedation. He was found to have STEMI and underwent PCI with Cardiology. After the procedure he was admitted to the ICU. He has had CT head done on 07/19, 07/21, and 07/23, all of which did not show any significant abnormalities. On 07/19 versed and fentanyl was witched to propofol. On 07/20 he had a sedation holiday but was not response to pain and no purposeful activity. Routine EEG was done on 07/21 which showed mild diffuse background slowing without any epileptiform features. Propofol had been turned off an hour prior to this recording. He has been empirically started on Keppra and is receiving 1000mg BID. As of this morning he is off sedation and has been extubated. at bedside. He is hoarse due to intubation but able to communicate clearly. Review of Systems Review of Systems: All systems reviewed & are unremarkable except as noted in HPI and below Exam Const: General: comfortable and no acute distress HENMT: Mouth: Yes moist mucous membranes Eyes: EOM: EOMs intact bilaterally Resp: Effort & Inspection: normal respiratory effort Skin: General skin exam: normal color Neuro: Other: Alert, awake, gaze is conjugate, face is symmetric, can move all extremities side to side but no sustained antigravity movement in any extremity. He can feel noxious stimuli in all four extremities. Unable to participate in FNF. His voice is hoarse but speech is fluent. Comprehension is intact. Following commands well. Gait deferred. Extrem: General: normal to inspection Objective Data Vital Signs Vital Signs: Vital Signs - 24 hr 07/24/23 11:34 07/24/23 12:04 07/24/23 12:00 Temperature Pulse Rate 73 69 69 Respiratory Rate 12 Blood Pressure Pulse Oximetry 98 Oxygen Delivery Mechanical Ventilation Fraction of Inspired Oxygen 30 07/24/23 12:00 07/24/23 12:00 07/24/23 13:39 Temperature 37.6 C Pulse Rate 70 69 76 Respiratory Rate 12 12 Blood Pressure 103/68 Pulse Oximetry 98 Oxygen Delivery Fraction of Inspired Oxygen 07/24/23 13:39 07/24/23 14:33 07/24/23 14:00 Temperature Pulse Rate 75 71 66 Respiratory Rate 12 Blood Pressure Pulse Oximetry 98 Oxygen Delivery Mechanical Ventilation Fraction of Inspired Oxygen 30 07/24/23 14:00 07/24/23 17:08 07/24/23 16:00 Temperature 37.9 C H Pulse Rate 66 69 72 Respiratory Rate 11 L Blood Pressure 105/72 Pulse Oximetry 98 98
--- NOTE | 2023-07-25 10:47 | PCFNICU ---
ICU Rounding Note: Pt current nutrition is Vital 1.2 @ goal rate 70 ml/h. 1848 kcal, 115 g protein, 1249 ml free water. Meeting 100% eer and estimated protein needs Nutrition recommendation: No new nutrition recommendations. PO textures and viscosity per speeh Last recorded weight is 90.7 kg. Bowel Motility: Liquid stool draining per FMS Labs Reviewed:Hgb 11.7, Hct 36.9, BUN 27, Glu 132 Meds Noted: Reglan, Kepra, protonix Skin: WNL Additional Notes: Extubated today and doing well. Speech likely to see today. Continue TF orders until cleared for safe swallow. Following daily in ICU rounds. Monitoring tube feeding tolerance, orders, vent settings, labs, weights, bowel movements Follow daily in ICU, reassess Tuesdays and Fridays.
--- NOTE | 2023-07-25 10:59 | WPDINTPN ---
Progress Note: A&P Assessment and Plan (1) Cardiac arrest: Code(s): I46.9 - Cardiac arrest, cause unspecified Status: Acute Assessment and Plan: Patient presented after what appears to be asystole cardiac arrest which converted to VFib after CPR and epinephrine requiring defibrillation Diagnosed with STEMI in ER and status post PTCA/PCI with ALEXANDR x1 to mid circumflex CTA was negative for any complication of aortic aneurysm or PE Remains intubated and sedated Hemodynamically stable at this time Troponins reviewed Management of STEMI as below Evaluation and management of encephalopathy as below Echo Summary ? 1. Complete two-dimensional, color flow and Doppler transthoracic echocardiogram is performed. ? 2. Normal left ventricular size with posterior hypokinesia overall normal ejection fraction. ? 3. No significant valvular dysfunction. EF 50-55% grade 1 diastolic dysfunction (2) Anoxic brain injury: Code(s): G93.1 - Anoxic brain damage, not elsewhere classified Status: Acute Assessment and Plan: Patient had a cardiac arrest but as per ER physician report patient had purposeful movement post intubation in the ER before he received sedatives. Head CT showeds cerebral atherosclerosis and no other acute intracranial abnormality. 07/19 Versed and fentanyl switched to propofol. Aggressive Normothermia was maintained with Tylenol and cooling blanket 07/20 on sedation holiday patient not responsive to pain showing any purposeful activity suggestive of anoxic brain injury. Exam as above Ammonia normal. Thyroid function appears normal 07/[address] was negative for any acute change 07/21: EEG This is an abnormal EEG due to presence of mild diffuse background slowing suggests a generalized cephalopathy.? However no focal or paroxysmal epileptiform abnormality was noted.? A follow-up study may be helpful if clinically relevant Continue [facility] [place] Continue neuro monitoring Improvement in Exam as above 07/23: CT brain noncontrast. No significant abnormality seen 07/23: CT cervical spine.No fracture or subluxation of the cervical spine.. Mild degenerative spondylolysis (3) STEMI (ST elevation myocardial infarction): Code(s): I21.3 - ST elevation (STEMI) myocardial infarction of unspecified site Status: Acute Assessment and Plan: STEMI status post PCI Catheterization showed Right coronary dominant circulation with acute myocardial infarction with ST elevation resulting from acute thrombotic occlusion of the mid circumflex after the 1st obtuse marginal branch as detailed above now status post successful emergency PCI of the target lesion in the mid circumflex using the 3 x 22 mm SongAfteriro? drug-eluting stent with an excellent anatomical result. Echocardiogram as above Aspirin Brilinta ernst and ARB Continue statins now that the enzymes are trending down (4) Acute respiratory failure: Code(s): J96.00 - Acute respiratory failure, unspecified whether with hypoxia or hypercapnia Status: Acute Assessment and Plan: Acute Respiratory failure secondary to cardiac arrest and aspiration pneumonia Patient currently intubated and sedated Continue full mechanical ventilation support to prevent hypoxemia/hypercarbia and end organ damage. On FiO2 of 30% and PEEP of 5 ABG and PCXR reviewed Treatment of pneumonia as below Low tidal volume ventilation strategy to prevent volutrauma Patient currently on Precedex infusion -patient has tolerated ASV mode of ventilation well all day yesterday and overnight. Placed patient on SBT and will evaluate for extubation, off Precedex infusion, patient is more awake, has a good cough response (5) Pneumonia: Code(s): J18.9 - Pneumonia, unspecified organism Status: Acute Assessment and Plan: Likely aspiration 07/19: Blood culture negative x2 07/19: Sputum culture showing moderate Gram-negative bacilli and moderate Gram-positive cocci
[2023-07-26] VITALS (17 sets, daily range): BP systolic 127–174; BP diastolic 75–96; PULSE 67–100; RESP 16–21; TEMP 36.2–38; O2SAT 95–100; BMI 11.0; BMI 10.0
[2023-07-26 04:54] LABS: Anion Gap 8 mmol/L (4-12); Blood Urea Nitrogen 25 mg/dL (9-20); Carbon Dioxide 25 mmol/L (22-30); Chloride 108 mmol/L (98-107); Potassium 3.7 mmol/L (3.4-5.0); Sodium 141 mmol/L (137-145)
[2023-07-26 04:55] LABS: Alanine Aminotransferase 108 U/L (6-50); Alkaline Phosphatase 65 U/L (38-126); Aspartate Amino Transferase 83 U/L (17-59); Bilirubin,Total 0.7 mg/dL (0.2-1.3); Estimated CRCL calculation 111 ml/min; Estimated Glomerular Filt Rate > 60; Glucose 97 mg/dL (65-110); Magnesium 1.9 mg/dL (1.6-2.3); Phosphorus 3.6 mg/dL (2.5-4.5); Total Protein 7.2 g/dL (6.3-8.2); Triglycerides 111 mg/dL (<150)
[2023-07-26 05:02] LABS: Basophils Percent Auto 0.4 % (0.2-1.2); Eosinophils Absolute Auto 0.5 K/mm3 (0-0.3); Eosinophils Percent Auto 5.3 % (0-4.4); Hematocrit 39.8 % (42.0-52.0); Hemoglobin 12.9 g/dL (14.0-18.0); Immature Granulocyte Absolute 0.07 K/mm3 (0.00-0.031); Immature Granulocyte Percent A 0.7 % (0-0.5); Immature Platelet Fraction Pct 1.5 % (0.9-11.2); Lymphocytes Absolute Auto 1.53 K/mm3 (0.9-3.2); Lymphocytes Percent Auto 16.2 % (18.3-44.2); Mean Corpuscular HGB Conc 32.4 g/dl (32-36); Mean Corpuscular Hemoglobin 31.3 pg (26-34); Mean Corpuscular Volume 96.6 fl (80-100); Mean Platelet Volume 9.1 fl (7.4-10.4); Monocytes Absolute Auto 0.9 K/mm3 (0.1-0.6); Monocytes Percent Auto 9.2 % (2.6-8.5); Neutrophils Absolute Auto 6.4 K/mm3 (1.3-6.7); Neutrophils Percent Auto 68.2 % (45.5-73.1); Platelet Count Result 274 k/mm3 (150-375); Red Blood Count 4.12 M/mm3 (4.6-6.20); Red Cell Distribution Width 12.1 % (11.5-14.5); White Blood Count 9.4 K/mm3 (4.5-10.0)
[2023-07-26] MEDS: levETIRAcetam 1000MG/NACL100ML 1,000 MG/100 ML BAG 400 MG IVPB ×2 (08:17→20:35)
[2023-07-26] MEDS: PANTOPRAZOLE SODIUM IV 40 MG VIAL IV PUSH (08:17)
[2023-07-26] MEDS: ENOXAPARIN 40 MG/0.4 ML SYRINGE SUB-Q (08:17)
[2023-07-26] MEDS: ASPIRIN 81 MG CHEWABLE TABLET PO (08:17)
[2023-07-26] MEDS: ROSUVASTATIN 10 MG TABLET PO (08:17)
[2023-07-26] MEDS: SCOPOLAMINE 1 MG PATCH 1 PATCH TRANSDERM (08:18)
[2023-07-26] MEDS: TICAGRELOR 90 MG TABLET PO ×2 (08:18→20:35)
[2023-07-26] MEDS: METOPROLOL TARTRATE 12.5 MG TABLET PO ×2 (08:19→20:35)
[2023-07-26] MEDS: LOSARTAN POTASSIUM 25 MG TABLET PO (08:19)
--- NOTE | 2023-07-26 08:36 | WPDINTPN ---
Progress Note: A&P Assessment and Plan (1) Cardiac arrest: Code(s): I46.9 - Cardiac arrest, cause unspecified Status: Acute Assessment and Plan: Patient presented after what appears to be asystole cardiac arrest which converted to VFib after CPR and epinephrine requiring defibrillation Diagnosed with STEMI in ER and status post PTCA/PCI with ALEXANDR x1 to mid circumflex CTA was negative for any complication of aortic aneurysm or PE Remains intubated and sedated Hemodynamically stable at this time Troponins reviewed Management of STEMI as below Evaluation and management of encephalopathy as below Echo Summary ? 1. Complete two-dimensional, color flow and Doppler transthoracic echocardiogram is performed. ? 2. Normal left ventricular size with posterior hypokinesia overall normal ejection fraction. ? 3. No significant valvular dysfunction. EF 50-55% grade 1 diastolic dysfunction (2) Anoxic brain injury: Code(s): G93.1 - Anoxic brain damage, not elsewhere classified Status: Acute Assessment and Plan: Patient had a cardiac arrest but as per ER physician report patient had purposeful movement post intubation in the ER before he received sedatives. Head CT showeds cerebral atherosclerosis and no other acute intracranial abnormality. 07/19 Versed and fentanyl switched to propofol. Aggressive Normothermia was maintained with Tylenol and cooling blanket 07/20 on sedation holiday patient not responsive to pain showing any purposeful activity suggestive of anoxic brain injury. Exam as above Ammonia normal. Thyroid function appears normal 07/[address] was negative for any acute change 07/21: EEG This is an abnormal EEG due to presence of mild diffuse background slowing suggests a generalized cephalopathy.? However no focal or paroxysmal epileptiform abnormality was noted.? A follow-up study may be helpful if clinically relevant Continue [facility] Continue neuro monitoring Improvement in Exam as above 07/25: patient up unable to move lower extremities and weak in his upper extremities, will obtain MRI of the brain and brainstem. Discussed with neurology who agrees. 07/23: CT brain noncontrast. No significant abnormality seen 07/23: CT cervical spine.No fracture or subluxation of the cervical spine.. Mild degenerative spondylolysis (3) STEMI (ST elevation myocardial infarction): Code(s): I21.3 - ST elevation (STEMI) myocardial infarction of unspecified site Status: Acute Assessment and Plan: STEMI status post PCI Catheterization showed Right coronary dominant circulation with acute myocardial infarction with ST elevation resulting from acute thrombotic occlusion of the mid circumflex after the 1st obtuse marginal branch as detailed above now status post successful emergency PCI of the target lesion in the mid circumflex using the 3 x 22 mm Orsiro? drug-eluting stent with an excellent anatomical result. Echocardiogram as above Aspirin Brilinta ernst and ARB Continue statins now that the enzymes are trending down (4) Acute respiratory failure: Code(s): J96.00 - Acute respiratory failure, unspecified whether with hypoxia or hypercapnia Status: Acute Assessment and Plan: Acute Respiratory failure secondary to cardiac arrest and aspiration pneumonia Patient currently intubated and sedated -07/25/2023: Extubated -encouraged incentive spirometry -PT/OT to follow the patient, -speech therapy to evaluate for bedside swallow (5) Pneumonia: Code(s): J18.9 - Pneumonia, unspecified organism Status: Acute Assessment and Plan: Likely aspiration 07/19: Blood culture negative x2 07/19: Sputum culture showing moderate Gram-negative bacilli and moderate Gram-positive cocci in chains Patient has completed a course of Zosyn (6) Hypertension: Code(s): I10 - Essential (primary) hypertension Status: Acute Assessment and Plan: Currently bl
--- NOTE | 2023-07-26 09:56 | WPDNEUROPN ---
Progress Note: A&P Assessment and Plan (1) Cardiac arrest: Code(s): I46.9 - Cardiac arrest, cause unspecified Status: Acute (2) STEMI (ST elevation myocardial infarction): Code(s): I21.3 - ST elevation (STEMI) myocardial infarction of unspecified site Status: Acute (3) Weakness: Code(s): R53.1 - Weakness Status: Acute (4) Encephalopathy: Code(s): G93.40 - Encephalopathy, unspecified Status: Acute Plan Mr. Sosa is a 57 year old male currently admitted post-cardiac arrest due to STEMI s/p PCI, with concerns for possible anoxic brain injury. Several CT head have been done, non showing any significant changes. Routine EEG showed mild slowing of background. He has been extubated. MRI brain was negative for any anoxic changes. He has significant weakness in all four extremities. There also seems to be sensory loss in the lower extremities, and he is areflexive throughout. CK not significantly elevated. Consider critical illness polyneuropathy/critical illness myopathy vs spinal cord infarction. Will obtain MRI of the entire spine for further evaluation. If negative, will need EMG/NCS as outpatient. - MRI cervical, thoracic, and lumbar spine with and without contrast - Trend CK level daily - PT/OT Subjective Date/time seen: 07/26/23 09:56 Interval history: Mr. Sosa is a 57 year old male with a history of hypertension and aortic aneurysm who is currently admitted post cardiac arrest. Patient was found down by his . EMS was called. Patient was found to be in asystole, received CPR/epinephrine, went into V fib and was shocked twice before ROSC was obtained. He was intubated on site and brought to the ER. In the ER, patient reported had purposeful movement while being assessed by ER physician. He was pulling on lines and ET tube so he was started on sedation. He was found to have STEMI and underwent PCI with Cardiology. After the procedure he was admitted to the ICU. He has had CT head done on 07/19, 07/21, and 07/23, all of which did not show any significant abnormalities. On 07/19 versed and fentanyl was witched to propofol. On 07/20 he had a sedation holiday but was not response to pain and no purposeful activity. Routine EEG was done on 07/21 which showed mild diffuse background slowing without any epileptiform features. Propofol had been turned off an hour prior to this recording. He has been empirically started on Keppra and is receiving 1000mg BID. He was extubated on 07/24. He has had weakness in all four extremities. MRI brain was done today which was negative for any ischemic changes. Patient is not able to provide much history, but his family reports that prior to this event he was ambulating normally, didn't have neuropathy or any numbness in his feet. He is not a diabetic and does not a heavy alcohol drinker. Review of Systems Review of Systems: ROS unobtainable: Yes unobtainable due to mental status Exam Const: General: comfortable and no acute distress HENMT: Mouth: Yes moist mucous membranes Eyes: EOM: EOMs intact bilaterally Resp: Effort & Inspection: normal respiratory effort Skin: General skin exam: normal color Neuro: Other: Alert, awake, gaze is conjugate, face is symmetric, flaccid in bilateral upper extremities, had some mild side to side movement in the lower extremities. Could not feel noxious stimulation to the lower extremities. Areflexive throughout. Unable to participate in FNF. His voice is hoarse but speech is fluent. Extrem: General: normal to inspection Objective Data Vital Signs Vital Signs: Vital Signs - 24 hr 07/25/23 10:07/25/23 10:07/25/23 12:00 Temperature 37.6 C H 37.8 C H Pulse Rate 74 67 85 Respiratory Rate 18 16 20 Blood Pressure 133/81 126/74 Pulse Oximetry 96 100 97 Oxygen Delivery Nasal Cannula Oxygen Flow Rate 2 Fraction of Inspired Oxygen 07/25/23 12:00 07/25/23 10:07/25/23 14:00 Temperature
--- NOTE | 2023-07-26 09:57 | PCPTNOTE ---
attempted PT eval, Patient scheduled to get MRI. will follow
--- NOTE | 2023-07-26 10:14 | PCOTNOTE ---
Attempted to see pt. for occupational therapy evaluation. Pt. preparing for MRI. Following
--- NOTE | 2023-07-26 10:27 | PM.PNCARD ---
Progress Note: A&P Assessment and Plan (1) STEMI (ST elevation myocardial infarction): Code(s): I21.3 - ST elevation (STEMI) myocardial infarction of unspecified site Status: Acute Assessment and Plan: Cardiac catheterization showed right coronary dominant circulation with acute myocardial infarction with ST elevation resulting from acute thrombotic occlusion of the mid circumflex after the 1st obtuse marginal branch status post successful emergency PCI of the target lesion in the mid circumflex using the 3mm x 22 mm Orsiro?drug-eluting stent with an excellent anatomical result. Echocardiogram shows LVEF 50-55% with posterior hypokinesia; no significant valvular disease. Continue ASA, Brilinta, statin, beta ernst. (2) Cardiac arrest: Code(s): I46.9 - Cardiac arrest, cause unspecified Status: Acute Assessment and Plan: In setting of STEMI, now s/p PCI. Echocardiogram shows LVEF 50-55% with posterior hypokinesia; no significant valvular disease. (3) Anoxic brain injury: Code(s): G93.1 - Anoxic brain damage, not elsewhere classified Status: Acute Assessment and Plan: Neurology consulted and following along. CT Head negative for acute findings. EEG with presence of mild diffuse background slowing suggesting a generalized cephalopathy; no focal or paroxysmal epileptiform abnormality. Brain MRI is pending. PT/OT/ST consulted. (4) Acute respiratory failure: Code(s): J96.00 - Acute respiratory failure, unspecified whether with hypoxia or hypercapnia Status: Acute Assessment and Plan: Extubated on 07/24. (5) Pneumonia: Code(s): J18.9 - Pneumonia, unspecified organism Status: Acute Assessment and Plan: Completed antibiotics. (6) Hypertension: Code(s): I10 - Essential (primary) hypertension Status: Acute Assessment and Plan: Stable. Continue Losartan, Metoprolol. Plan Recommendations and plan discussed with Remedial Project Manager. Subjective Date/time seen: 07/26/23 10:27 Interval history: Reason for visit: STEMI, cardiac arrest HPI: This is a 57-year-old man with an apparent history of dyslipidemia and a reported history of aortic aneurysm.? The details of this are unknown to us.? He presents to the hospital here following resuscitation from cardiac arrest.? He apparently was at home with family and was suddenly unresponsive and collapsed.? 911 was called and I was told he was found in asystole.? Resuscitation was then carried out and there were episodes of ventricular fibrillation as well as PEA.? Upon arrival here he was intubated and electrocardiogram done following resuscitation showed obvious inferior ST elevation with anterior precordial ST depression.? He has no previous known history of coronary artery disease according to the information I was given.? There was no further history available as he is unresponsive and intubated and on ventilator support. Date of service 07/20: Acute ST-elevation NC with occlusion of his mid circumflex status post successful emergency PCI with drug-eluting stent with good anatomical and angiographic result.? Unfortunately at home the event was marked by asystolic cardiac arrest and patient remains unresponsive on ventilator in the ICU. Today he is clinically unchanged hemodynamics are stable having some PVCs on the monitor.? He is off sedation and is unresponsive.? Some myoclonic jerking is noted.? Plans for EEG and brain CT scan tomorrow morning.? Poor prognosis discussed with the patient's who is at the bedside. Date of service 07/21: No acute changes overnight.? Patient remains intubated and sedated.? Hemodynamically stable. Date of service 07/22: Remains intubated, sedated. Date of service 07/23: Remains intubated. Tele stable. Date of service 07/24: Tele stable. On weaning trial this morning. Date of service 07/25: Extubated on 07/24. Respiratory status stable. Denies chest woody
--- NOTE | 2023-07-26 10:35 | PCSTNOTE ---
Please refer to the Bedside Swallow Evaluation in the EMR. Please note, silent aspiration cannot be ruled out at bedside.
--- NOTE | 2023-07-26 13:00 | PCNFU ---
Nutrition Follow-Up Complete: Increased protein energy needs related to mechanical ventilation as evidenced by need for full tube feeding Goal: Meet estimated protein energy needs Patient is progressing towards goal. We will continue current goal. Pt current nutrition is Heart Healthy/Pureed, Level 4 diet. Nutrition recommendation: Ensure Compact BID. Last recorded weight is 91 kg, down from 94.1 kg on admit. Bowel Motility: FMS Labs Reviewed: BUN 25 Meds Noted: Protonix, Keppra, Lopressor. Skin: WNL Additional Notes: Patient had MBS performed today recommending Pureed diet at this time due to no teeth. Plans to advance as tolerated Day 2 to Minced and Moist,Level 5 and Day 3 Soft and Bite Sized, Level 6. Recommending Ensure compact BID for additional 220 kcals and 9 gms protein. Agree with diet orders. Monitoring tube feeding tolerance, orders, vent settings, labs, weights, bowel movements Follow daily in ICU, reassess every 3 days.
--- NOTE | 2023-07-26 13:45 | PCSTNOTE ---
Please refer to the Modified Barium Swallow Evaluation in the EMR.
--- NOTE | 2023-07-26 16:30 | PC.NURSE ---
This patient, Andrews Sosa, was transferred to [facility] [place] 07[place]26/23 at 1630. Personal belongings sent with patient. Report given to Dana. Appropriate documentation sent with patient.
[2023-07-26] MEDS: TOLNAFTATE 1% POWDER 45 GM BTL 1 APPLIC TOPICAL (20:35)
[2023-07-27] VITALS (20 sets, daily range): BP systolic 93–159; BP diastolic 54–90; PULSE 75–98; RESP 12–22; TEMP 36.2–36.8; O2SAT 98–100
[2023-07-27 04:37] LABS: Basophils Percent Auto 0.3 % (0.2-1.2); Eosinophils Absolute Auto 0.4 K/mm3 (0-0.3); Eosinophils Percent Auto 3.1 % (0-4.4); Hemoglobin 14.1 g/dL (14.0-18.0); Immature Granulocyte Absolute 0.08 K/mm3 (0.00-0.031); Immature Granulocyte Percent A 0.7 % (0-0.5); Lymphocytes Absolute Auto 1.28 K/mm3 (0.9-3.2); Lymphocytes Percent Auto 11.5 % (18.3-44.2); Mean Corpuscular HGB Conc 34.4 g/dl (32-36); Mean Corpuscular Hemoglobin 31.8 pg (26-34); Mean Corpuscular Volume 92.3 fl (80-100); Monocytes Absolute Auto 0.9 K/mm3 (0.1-0.6); Monocytes Percent Auto 8.2 % (2.6-8.5); Neutrophils Absolute Auto 8.5 K/mm3 (1.3-6.7); Neutrophils Percent Auto 76.2 % (45.5-73.1); Platelet Count Result 302 k/mm3 (150-375); Red Blood Count 4.44 M/mm3 (4.6-6.20); White Blood Count 11.1 K/mm3 (4.5-10.0)
[2023-07-27 04:46] LABS: Alanine Aminotransferase 109 U/L (6-50); Albumin Level 4.3 g/dL (3.5-5.1); Alkaline Phosphatase 71 U/L (38-126); Anion Gap 8 mmol/L (4-12); Aspartate Amino Transferase 61 U/L (17-59); Bilirubin,Total 0.7 mg/dL (0.2-1.3); Blood Urea Nitrogen 25 mg/dL (9-20); Calcium 9.2 mg/dL (8.4-10.2); Carbon Dioxide 26 mmol/L (22-30); Chloride 105 mmol/L (98-107); Estimated CRCL calculation 127 ml/min; Estimated Glomerular Filt Rate > 60; Glucose 110 mg/dL (65-110); Magnesium 2.1 mg/dL (1.6-2.3); Phosphorus 3.3 mg/dL (2.5-4.5); Potassium 3.7 mmol/L (3.4-5.0); Sodium 139 mmol/L (137-145)
[2023-07-27] MEDS: levETIRAcetam 1000MG/NACL100ML 1,000 MG/100 ML BAG 400 MG IVPB ×2 (08:33→20:47)
[2023-07-27] MEDS: ROSUVASTATIN 10 MG TABLET PO (08:33)
[2023-07-27] MEDS: PANTOPRAZOLE SODIUM IV 40 MG VIAL IV PUSH (08:33)
[2023-07-27] MEDS: TICAGRELOR 90 MG TABLET PO ×2 (08:33→20:53)
[2023-07-27] MEDS: ASPIRIN 81 MG CHEWABLE TABLET PO (08:33)
[2023-07-27] MEDS: LOSARTAN POTASSIUM 25 MG TABLET PO (08:33)
[2023-07-27] MEDS: METOPROLOL TARTRATE 12.5 MG TABLET PO ×2 (08:34→20:52)
[2023-07-27] MEDS: ENOXAPARIN 40 MG/0.4 ML SYRINGE SUB-Q (08:34)
--- NOTE | 2023-07-27 11:31 | PM.PNCARD ---
Progress Note: A&P Assessment and Plan (1) STEMI (ST elevation myocardial infarction): Code(s): I21.3 - ST elevation (STEMI) myocardial infarction of unspecified site Status: Acute Plan STEMI s/p PCI to LCX, cont ASA and Birlinta HTN controlled, plan Continue metoprolol and losartan Altered mental status likely related to encephalopathy consult internal medicine to transfer care from Cardiology to medicine service Subjective Date/time seen: 07/27/23 11:31 Interval history: no acute events remain confused Review of Systems Review of Systems: ROS unobtainable: Yes unobtainable due to mental status Exam Const: General: comfortable and no acute distress Other: Able to lie flat Neck: Neck: supple and no JVD Carotids: no bruits Resp: Auscultation: clear to auscultation bilaterally and lung sounds not diminished Other: No chest wall tenderness Cardio: Rate: regular rate Rhythm: regular rhythm Heart sounds: no gallops, no murmurs and no rubs GI: GI Palp: Yes Soft to palpation and No Tenderness to palpation present (GI) Auscultation: normal bowel sounds Skin: General skin exam: normal color, rashes and/or lesions noted and no erythema Other: Warm Objective Data Vital Signs Vital Signs: Vital Signs - 24 hr 07/26/23 12:00 07/26/23 12:00 07/26/23 12:00 Temperature 37.7 C H Pulse Rate 80 80 80 Respiratory Rate 20 20 Blood Pressure 149/87 H Pulse Oximetry 98 98 Oxygen Delivery Room Air Fraction of Inspired Oxygen 07/26/23 14:00 07/26/23 14:00 07/26/23 16:00 Temperature 37.9 C H Pulse Rate 84 84 86 Respiratory Rate 19 Blood Pressure 153/92 H Pulse Oximetry 96 Oxygen Delivery Fraction of Inspired Oxygen 07/26/23 16:00 07/26/23 16:00 07/26/23 18:00 Temperature 38.0 C H Pulse Rate 86 86 87 Respiratory Rate 19 19 Blood Pressure 137/90 Pulse Oximetry 95 95 Oxygen Delivery Room Air Fraction of Inspired Oxygen 07/26/23 18:45 07/26/23 20:17 07/26/23 20:35 Temperature 36.8 C 36.2 C L Pulse Rate 80 100 78 Respiratory Rate 20 16 Blood Pressure 174/91 H 152/96 H Pulse Oximetry 96 97 Oxygen Delivery Fraction of Inspired Oxygen 07/26/23 23:53 07/26/23 20:00 07/26/23 20:00 Temperature 36.5 C Pulse Rate 78 86 86 Respiratory Rate 16 16 Blood Pressure 152/94 H Pulse Oximetry 98 98 Oxygen Delivery Room Air Fraction of Inspired Oxygen 30 07/26/23 22:00 07/27/23 00:00 07/27/23 00:00 Temperature Pulse Rate 82 91 91 Respiratory Rate 16 Blood Pressure Pulse Oximetry 98 Oxygen Delivery Room Air Fraction of Inspired Oxygen 30 07/27/23 01:55 07/27/23 04:00 07/27/23 04:00 Temperature Pulse Rate 85 84 84 Respiratory Rate 16 Blood Pressure Pulse Oximetry 98 Oxygen Delivery Room Air Fraction of Inspired Oxygen 07/27/23 05:28 07/27/23 05:38 07/27/23 07:53 Temperature 36.5 C 36.8 C Pulse Rate 89 94 93 Respiratory Rate 16 16 Blood Pressure 159/90 H 156/85 H Pulse Oximetry 100 98 Oxygen Delivery Fraction of Inspired Oxygen 07/27/23 08:34 07/27/23 08:49 Temperature Pulse Rate 93 Respiratory Rate Blood Pressure Pulse Oximetry 98 Oxygen Delivery Room Air Fraction of Inspired Oxygen 21 Intake/Output Intake/Output: Intake & Output 07/24/23 07/25/23 07/26/23 07/27/23 23:59 23:59 23:59 23:59 Intake Total 1793.9 1347.5 700 120 Output Total 1050 2200 2250 600 Balance 743.9 -852.5 -1550 -480 Meds/Results Medications: Active Medications Generic Name Dose Route Start Last Admin Trade Name Estuardo PRN Reason Stop Dose Admin Acetaminophen 650 mg 07/20/23 10:47 07/22/23 17:17 Acetaminophen 325 Mg Tablet PO 650 mg Q4H PRN Administration Fever > 100.5 Aspirin 81 mg 07/20/23 08:00 07/27/23 08:33 Aspirin 81 Mg Chewable Tablet PO 81 mg DAILY@0800 PAPO Administration Dextrose 12.5 gm 07/20/23 07:52
[2023-07-27] MEDS: TOLNAFTATE 1% POWDER 45 GM BTL 1 APPLIC TOPICAL ×2 (11:35→20:55)
[2023-07-27] MEDS: EUCERIN CREAM 120 GM JAR 1 APPLIC TOPICAL (11:35)
--- NOTE | 2023-07-27 13:17 | PCOTNOTE ---
Pt is not appropriate for Occupational Therapy treatment per RN, due to waiting to have MRI. Will attempt when medically appropriate per POC duration/frequency.
--- NOTE | 2023-07-27 15:22 | WPDCN ---
Assessment and Plan Assessment and plan (1) Cardiac arrest: Code(s): I46.9 - Cardiac arrest, cause unspecified Status: Acute Assessment and Plan: found the patient unresponsive; he was in asystole on EMS arrival to the patient's home on 07/19/2023. During resuscitation: noted to be in PEA then ventricular fibrillation status post shock x2 with ROSC. Cardiac arrest secondary to #2. (2) ST elevation myocardial infarct involv left circumflex coronary artery: Onset Date: 07/19/23 Code(s): I21.21 - ST elevation (STEMI) myocardial infarction involving left circumflex coronary artery Status: Acute Assessment and Plan: Status post drug-eluting stent to the midcircumflex in social services director hours on 07/20/2023. Echocardiogram shows left ventricular ejection fraction of 50 to 55% with posterior hypokinesis. On aspirin, ticagrelor, metoprolol, and rosuvastatin. (3) Encephalopathy: Code(s): G93.40 - Encephalopathy, unspecified Status: Acute Assessment and Plan: Patient is less than 24 hours out of the ICU and is likely still suffering from delirium. Initial concerns for anoxic brain injury however no anoxic changes were noted on brain MRI. Consider infection however he completed a course Zosyn for suspected aspiration making that less likely. No reports of alcohol or illicit substance abuse which rules out withdrawal. Blood pressures are occasionally high but not high enough for hypertensive encephalopathy. Possibly medication induced though less likely (scopolamine and levetiracetam could cause confusion rarely). Promote regular sleep-wake cycle, attempt to minimize nocturnal disturbances, provide orienting stimuli. Continue neurologic checks q.4 hours. Hold scopolamine for now. Remains on levetiracetam. (4) Weakness: Code(s): R53.1 - Weakness Status: Acute Assessment and Plan: Patient demonstrates weakness in all extremities which seems to be worse in the lower extremities. Possible critical illness polyneuropathy/myopathy versus spinal cord infarction versus other. CK not significantly elevated. Dr. Dempsey has ordered MRI of the entire spine to further evaluate. (5) Descending thoracic aortic aneurysm: Code(s): I71.23 - Aneurysm of the descending thoracic aorta, without rupture Status: Acute Assessment and Plan: Measuring 4.[address] scan taken 07/19/2023. This will need to be monitored as an outpatient. Plan Thank you for allowing us to participate in this patient's care. Please do not hesitate to contact us with any questions. HPI Data of Consult Date/Time: 07/27/23 15:30 Requesting Physician: Ralph Arce MD Primary Care Provider: Schuyler Painting MD Consult Narrative Narrative: This is a 57-year-old male with descending thoracic aortic aneurysm who presented to the emergency department via EMS from home on the night of 07/19/2023 post cardiac arrest. That night his heard him fall out of bed and found him unresponsive. On EMS arrival he was in asystole and after 2 rounds of CPR he was noted to be in PEA and then ventricular fibrillation for which he was shocked twice with return of spontaneous circulation and sinus rhythm. reports he had complained of fatigue and back pain throughout the day. He appeared neurologically responsive on arrival to the ED and demonstrated purposeful movements such as pulling on lines and reaching for the ET tube. Brain CT showed cerebral atherosclerosis but no other acute intracranial abnormality. EKG showed concerns for STEMI and the catheter finisher and inspector was activated and he underwent successful, emergent PCI with drug-eluting stent to the midcircumflex. He was transferred to the ICU. He was unresponsive with sedation holiday the following day without purposeful activity suggestive of anoxic brain injury. He was started on levetiracetam as due to twitching movements of the left
[2023-07-28] VITALS (16 sets, daily range): BP systolic 103–154; BP diastolic 64–91; PULSE 78–94; RESP 16–28; TEMP 36.2–36.7; O2SAT 97–100
[2023-07-28 04:15] LABS: Hematocrit 42.7 % (42.0-52.0); Hemoglobin 14.5 g/dL (14.0-18.0); Mean Corpuscular Hemoglobin 31.5 pg (26-34); Mean Corpuscular Volume 92.6 fl (80-100); Mean Platelet Volume 9.1 fl (7.4-10.4); Platelet Count Result 326 k/mm3 (150-375); Red Blood Count 4.61 M/mm3 (4.6-6.20); Red Cell Distribution Width 12.1 % (11.5-14.5); White Blood Count 11.3 K/mm3 (4.5-10.0)
[2023-07-28 04:31] LABS: Alanine Aminotransferase 99 U/L (6-50); Albumin Level 4.2 g/dL (3.5-5.1); Alkaline Phosphatase 71 U/L (38-126); Anion Gap 9 mmol/L (4-12); Aspartate Amino Transferase 53 U/L (17-59); Bilirubin,Total 0.7 mg/dL (0.2-1.3); Blood Urea Nitrogen 27 mg/dL (9-20); Calcium 9.1 mg/dL (8.4-10.2); Carbon Dioxide 26 mmol/L (22-30); Chloride 105 mmol/L (98-107); Creatine Kinase 72 U/L (55-170); Estimated CRCL calculation 111 ml/min; Estimated Glomerular Filt Rate > 60; Glucose 107 mg/dL (65-110); Magnesium 1.9 mg/dL (1.6-2.3); Potassium 3.8 mmol/L (3.4-5.0); Sodium 140 mmol/L (137-145); Triglycerides 104 mg/dL (<150)
[2023-07-28 04:37] LABS: Ammonia 16 umol/L (9-30)
[2023-07-28] MEDS: ENOXAPARIN 40 MG/0.4 ML SYRINGE SUB-Q (08:37)
[2023-07-28] MEDS: PANTOPRAZOLE SODIUM IV 40 MG VIAL IV PUSH (08:37)
[2023-07-28] MEDS: levETIRAcetam 1000MG/NACL100ML 1,000 MG/100 ML BAG 400 MG IVPB ×2 (08:37→21:36)
[2023-07-28] MEDS: TICAGRELOR 90 MG TABLET PO ×2 (08:41→21:41)
[2023-07-28] MEDS: ROSUVASTATIN 10 MG TABLET PO (08:41)
[2023-07-28] MEDS: LOSARTAN POTASSIUM 25 MG TABLET PO (08:42)
--- NOTE | 2023-07-28 08:59 | WPDNEUROPN ---
Progress Note: A&P Assessment and Plan (1) Cardiac arrest: Code(s): I46.9 - Cardiac arrest, cause unspecified Status: Acute (2) STEMI (ST elevation myocardial infarction): Code(s): I21.3 - ST elevation (STEMI) myocardial infarction of unspecified site Status: Acute (3) Weakness: Code(s): R53.1 - Weakness Status: Acute (4) Encephalopathy: Code(s): G93.40 - Encephalopathy, unspecified Status: Acute Plan Mr. Sosa is a 57 year old male currently admitted post-cardiac arrest due to STEMI s/p PCI, with concerns for possible anoxic brain injury. Several CT head have been done, non showing any significant changes. Routine EEG showed mild slowing of background. He has been extubated. MRI brain was negative for any anoxic changes. He has significant weakness in all four extremities. There also seems to be sensory loss in the lower extremities, and he is hyporeflexive throughout. CK not significantly elevated. Consider critical illness polyneuropathy/critical illness myopathy vs spinal cord infarction. Will obtain MRI of the entire spine for further evaluation. If negative, will need EMG/NCS as outpatient. - MRI cervical, thoracic, and lumbar spine with and without contrast - PT/OT Subjective Date/time seen: 07/28/23 08:59 Interval history: Mr. Sosa is a 57 year old male with a history of hypertension and aortic aneurysm who is currently admitted post cardiac arrest. Patient was found down by his . EMS was called. Patient was found to be in asystole, received CPR/epinephrine, went into V fib and was shocked twice before ROSC was obtained. He was intubated on site and brought to the ER. In the ER, patient reported had purposeful movement while being assessed by ER physician. He was pulling on lines and ET tube so he was started on sedation. He was found to have STEMI and underwent PCI with Cardiology. After the procedure he was admitted to the ICU. He has had CT head done on 07/19, 07/21, and 07/23, all of which did not show any significant abnormalities. On 07/19 versed and fentanyl was witched to propofol. On 07/20 he had a sedation holiday but was not response to pain and no purposeful activity. Routine EEG was done on 07/21 which showed mild diffuse background slowing without any epileptiform features. Propofol had been turned off an hour prior to this recording. He has been empirically started on Keppra and is receiving 1000mg BID. He was extubated on 07/24. He has had weakness in all four extremities. MRI brain was done today which was negative for any ischemic changes. Patient is not able to provide much history, but his family reports that prior to this event he was ambulating normally, didn't have neuropathy or any numbness in his feet. He is not a diabetic and does not a heavy alcohol drinker. Per his family at beside, he will move his upper extremities spontaneously but not when asked to. MRI of the spine is still pending. CK from today is normal (72). Review of Systems Review of Systems: ROS unobtainable: Yes unobtainable due to mental status Exam Const: General: comfortable and no acute distress HENMT: Mouth: Yes moist mucous membranes Eyes: EOM: EOMs intact bilaterally Resp: Effort & Inspection: normal respiratory effort Skin: General skin exam: normal color Neuro: Other: Alert, awake, gaze is conjugate, face is symmetric, when asked to move upper extremities and grip assembler my hand he does not. When sisters are interacting with him, he was able to move both upper extremities against gravity but not sustained. No significant movement in the lower extremities but was able to wiggle toes on the left, but not on the right. Can feel noxious stimulation in the upper extremities more than the lower extremities, but could feel in all four extremities, just seemed blunted in the legs. biceps are 1+ bilaterally, absent patellar reflex bilaterally, and 1+ AJ bilaterally. Speech is fluent.
[2023-07-28] MEDS: ASPIRIN 81 MG CHEWABLE TABLET PO (09:21)
[2023-07-28] MEDS: METOPROLOL TARTRATE 12.5 MG TABLET PO ×2 (09:21→21:41)
[2023-07-28] MEDS: TOLNAFTATE 1% POWDER 45 GM BTL 1 APPLIC TOPICAL ×2 (09:36→21:53)
[2023-07-28] MEDS: EUCERIN CREAM 120 GM JAR 1 APPLIC TOPICAL (10:00)
--- NOTE | 2023-07-28 18:24 | PM.IMPN ---
Progress Note: A&P Assessment and Plan (1) ST elevation myocardial infarct involv left circumflex coronary artery: Onset Date: 07/19/23 Code(s): I21.21 - ST elevation (STEMI) myocardial infarction involving left circumflex coronary artery Status: Acute (2) Aortic aneurysm: Code(s): I71.9 - Aortic aneurysm of unspecified site, without rupture Status: Acute (3) Anoxic brain injury: Code(s): G93.1 - Anoxic brain damage, not elsewhere classified Status: Acute (4) STEMI (ST elevation myocardial infarction): Code(s): I21.3 - ST elevation (STEMI) myocardial infarction of unspecified site Status: Acute (5) Cardiac arrest: Code(s): I46.9 - Cardiac arrest, cause unspecified Status: Acute (6) Acute respiratory failure: Code(s): J96.00 - Acute respiratory failure, unspecified whether with hypoxia or hypercapnia Status: Acute Plan This is a 57-year-old male with descending thoracic aortic aneurysm who presented to the emergency department via EMS from home on the night of 07/19/2023 post cardiac arrest. That night his heard him fall out of bed and found him unresponsive. On EMS arrival he was in asystole and after 2 rounds of CPR he was noted to be in PEA and then ventricular fibrillation for which he was shocked twice with return of spontaneous circulation and sinus rhythm. reports he had complained of fatigue and back pain throughout the day. He appeared neurologically responsive on arrival to the ED and demonstrated purposeful movements such as pulling on lines and reaching for the ET tube. Brain CT showed cerebral atherosclerosis but no other acute intracranial abnormality. EKG showed concerns for STEMI and the nursery laborer was activated and he underwent successful, emergent PCI with drug-eluting stent to the midcircumflex. He was transferred to the ICU. He was unresponsive with sedation holiday the following day without purposeful activity suggestive of anoxic brain injury. He was started on levetiracetam as due to twitching movements of the left side of the neck and arm. EEG showed mild diffuse background slowing suggesting generalized encephalopathy. Brain MRI was negative for anoxic changes. He was extubated on 07/25 and transferred the IMU. He has significant weakness in all 4 extremities with seeming sensory loss in lower extremities and areflexia. Hospitalist service has been consulted for medical management. Cardiac arrest STEMI status post drug-eluting stent to the mid circumflex on 07/20/2023. Encephalopathy Weakness with sensory loss and a reflexia Descending thoracic aortic aneurysm FEN: Heart healthy diet minced moist level 5. Saline lock IV GI prophylaxis: Protonix 40 mg q.a.m.. If he continues to eat can discontinue this DVT prophylaxis: Lovenox 40 mg subQ daily Lines: Peripheral IV. Hopefully we can remove the Guzman catheter and rectal tube, will need to assess if he is continent Code Status: Full code. Dispo: Stable in IMU Subjective Date/time seen: 07/28/23 18:25 Interval history: No acute overnight events. He appears in the same status as he was yesterday Review of Systems Review of Systems: All systems reviewed & are unremarkable except as noted in HPI and below (Subjective) Exam Const: General: comfortable and no acute distress Eyes: Pupils: Equal, round and reactive pupils present Neck: Neck: supple Resp: Effort & Inspection: normal respiratory effort Auscultation: clear to auscultation bilaterally Cardio: Rate: regular rate Rhythm: regular rhythm GI: GI Palp: Yes Soft to palpation and No Tenderness to palpation present (GI) Neuro: Other: Intermittently follows commands. Globally weak Extrem: General: no edema Objective Data Vital Signs Vital Signs: Vital Signs - 24 hr 07/27/23 20:00 07/27/23 20:52 07/27/23 20:00 Temperature 97.5 F L Pulse Rate 96 96 98 Respiratory Rate 22 H
[2023-07-29] VITALS (15 sets, daily range): BP systolic 125–127; BP diastolic 75–86; PULSE 63–96; RESP 18–22; TEMP 35.9–37; O2SAT 98–99
[2023-07-29 04:45] LABS: Basophils Absolute Auto 0.1 K/mm3 (0.0-0.1); Basophils Percent Auto 0.5 % (0.2-1.2); Eosinophils Absolute Auto 0.6 K/mm3 (0-0.3); Eosinophils Percent Auto 4.8 % (0-4.4); Hematocrit 39.2 % (42.0-52.0); Hemoglobin 13.4 g/dL (14.0-18.0); Immature Granulocyte Absolute 0.07 K/mm3 (0.00-0.031); Immature Granulocyte Percent A 0.6 % (0-0.5); Lymphocytes Absolute Auto 2.22 K/mm3 (0.9-3.2); Lymphocytes Percent Auto 18.6 % (18.3-44.2); Mean Corpuscular HGB Conc 34.2 g/dl (32-36); Mean Corpuscular Hemoglobin 31.8 pg (26-34); Mean Corpuscular Volume 92.9 fl (80-100); Mean Platelet Volume 9.3 fl (7.4-10.4); Monocytes Absolute Auto 1.1 K/mm3 (0.1-0.6); Monocytes Percent Auto 8.8 % (2.6-8.5); Neutrophils Absolute Auto 7.9 K/mm3 (1.3-6.7); Neutrophils Percent Auto 66.7 % (45.5-73.1); Platelet Count Result 356 k/mm3 (150-375); Red Blood Count 4.22 M/mm3 (4.6-6.20); Red Cell Distribution Width 12.1 % (11.5-14.5); White Blood Count 11.9 K/mm3 (4.5-10.0)
[2023-07-29 05:02] LABS: Anion Gap 7 mmol/L (4-12); Blood Urea Nitrogen 27 mg/dL (9-20); Carbon Dioxide 27 mmol/L (22-30); Chloride 105 mmol/L (98-107); Estimated CRCL calculation 111 ml/min; Estimated Glomerular Filt Rate > 60; Glucose 105 mg/dL (65-110); Magnesium 1.9 mg/dL (1.6-2.3); Potassium 3.7 mmol/L (3.4-5.0); Sodium 139 mmol/L (137-145)
[2023-07-29 05:13] LABS: Procalcitonin 0.1 ng/mL
[2023-07-29] MEDS: ROSUVASTATIN 10 MG TABLET PO (09:22)
[2023-07-29] MEDS: LOSARTAN POTASSIUM 25 MG TABLET PO (09:22)
[2023-07-29] MEDS: ASPIRIN 81 MG CHEWABLE TABLET PO (09:22)
[2023-07-29] MEDS: TICAGRELOR 90 MG TABLET PO ×2 (09:22→20:46)
[2023-07-29] MEDS: levETIRAcetam 1000MG/NACL100ML 1,000 MG/100 ML BAG 400 MG IVPB ×2 (09:23→20:43)
[2023-07-29] MEDS: PANTOPRAZOLE SODIUM IV 40 MG VIAL IV PUSH (09:23)
[2023-07-29] MEDS: EUCERIN CREAM 120 GM JAR 1 APPLIC TOPICAL (09:23)
[2023-07-29] MEDS: METOPROLOL TARTRATE 12.5 MG TABLET PO ×2 (09:23→20:46)
[2023-07-29] MEDS: ENOXAPARIN 40 MG/0.4 ML SYRINGE SUB-Q (09:23)
[2023-07-29] MEDS: TOLNAFTATE 1% POWDER 45 GM BTL 1 APPLIC TOPICAL ×2 (09:24→20:48)
--- NOTE | 2023-07-29 12:06 | PCNFU ---
Nutrition Follow-Up Complete: Goal:Meet estimated protein energy needs Pt current nutrition is Minced and moist level 5, Ensure compact TID. Nutrition recommendation: continue with current plan of care Last recorded weight is 91.5 kg. Bowel Motility: +BM 07/27 Labs Reviewed: Hgb:13.4, HCT:39.2, BUN:27 Meds Noted: lovenox, protonix Skin: WNL Additional Notes: Pt diet advanced to minced and moist level 5, intake about 50% of meals. Suppplements in place. Agree with diet orders, Encourage good po intake of meals and supplements. Monitoring diet orders, labs, weights, bowel movements Follow up in 3 days.
--- NOTE | 2023-07-29 18:41 | WPDNEUROPN ---
Progress Note: A&P Assessment and Plan (1) Anoxic brain injury: Code(s): G93.1 - Anoxic brain damage, not elsewhere classified Status: Acute Plan Are suggest continued attempt to work with occupational therapist and physical therapist. MRI of the brain performed did not show any infarcts. I spent his that continued efforts to rehab his from the point of view his a intellectual and physical capacity will require pre MRI of the brain did not show any abnormality however MRI of the cervical spine shows an area of myelomalacia in the mid spine. Although there is some narrowing but he does not appear to be in of account for the findings nevertheless out suggest a neurosurgical consultation. MRI of the thoracic and lumbosacral spine did not show any significant abnormality. Clinically I do not feel the patient had critical care myopathy at this time however it is a possibility and should be followed up particularly since there is asymmetry of finding. Subjective Date/time seen: 07/29/23 18:41 Interval history: The patient was seen for follow-up. He has had a cardiac arrest followed by a prolonged time intensive care unit where he has shown significant improvement and now extubated. He is somewhat confused and when air came to see him his family members were present. Occupational therapist was trying to work. Patient seems to be somewhat unaware of the left arm. Sit to be generally weak and not able to function as well. His is concerned that he did not seem to make much since at times. He has not had any passing out spells since extubation. He was started on anticonvulsants on empiric basis. Exam Narrative: Patient is fully conscious alert and does seem to talk at times follows simple commands but then drifts off. Unable to tell me the age or identify the names of the family members around him. Upon reminding he did manage to lift his left arm. He appears to have normal strength in the right upper and lower limb and the some question of weakness in left upper and lower limb but a difficulty distinguishing in view of the and also go see a. Deep tendon reflexes however did not show any significant asymmetry. No involuntary movements are seen. Objective Data Vital Signs Vital Signs: Vital Signs - 24 hr 07/28/23 19:52 07/28/23 21:41 07/28/23 23:30 Temperature 36.6 C 36.6 C Pulse Rate 92 89 83 Respiratory Rate 28 H 24 H Blood Pressure 119/82 136/81 Pulse Oximetry 98 99 Oxygen Delivery 07/28/23 20:00 07/28/23 22:00 07/29/23 00:00 Temperature Pulse Rate 94 90 81 Respiratory Rate Blood Pressure Pulse Oximetry Oxygen Delivery 07/29/23 02:00 07/28/23 20:00 07/29/23 00:00 Temperature Pulse Rate 81 Respiratory Rate Blood Pressure Pulse Oximetry 99 98 Oxygen Delivery Room Air Room Air 07/29/23 04:00 07/29/23 04:00 07/29/23 04:00 Temperature 36.7 C Pulse Rate 81 85 87 Respiratory Rate 22 H Blood Pressure 126/75 Pulse Oximetry 99 98 Oxygen Delivery Room Air 07/29/23 06:00 07/29/23 07:35 07/29/23 08:00 Temperature 35.9 C L Pulse Rate 86 90 Respiratory Rate 20 Blood Pressure 125/86 Pulse Oximetry 99 99 Oxygen Delivery Room Air 07/29/23 08:00 07/29/23 10:00 07/29/23 11:08 Temperature 36.1 C L Pulse Rate 96 82 76 Respiratory Rate 18 Blood Pressure 127/82 Pulse Oximetry 98 Oxygen Delivery 07/29/23 12:00 07/29/23 12:00 07/29/23 14:00 Temperature Pulse Rate 88 90 Respiratory Rate Blood Pressure Pulse Oximetry Oxygen Delivery Room Air 07/29/23 16:00 07/29/23 16:49 Temperature 36.3 C L Pulse Rate 91 92 Respiratory Rate 18 Blood Pressure 127/79 Pulse Oximetry 98 Oxygen Delivery Intake/Output Intake/Output: Intake & Output 07/26/23 07/27/23 07/28/23 07/29/23 23:59 23:59 23:59 23:59 Intake Total 700 320 200 800 Output Total 2250 900 1150 1400 Balance -1550 -580 -95
--- NOTE | 2023-07-29 19:45 | PM.IMPN ---
Progress Note: A&P Assessment and Plan (1) Coronary artery disease: Code(s): I25.10 - Atherosclerotic heart disease of [place] coronary artery without angina pectoris Status: Acute (2) Encephalopathy: Code(s): G93.40 - Encephalopathy, unspecified Status: Acute Plan Continues to be confused globally weak. Neurology continues to provide recommendations. It appears our best option is for him to go to SNF for rehab and follow with Neurology and Cardiology. Subjective Date/time seen: 07/29/23 19:45 Interval history: No acute overnight events. Tolerated therapy. Review of Systems Review of Systems: All systems reviewed & are unremarkable except as noted in HPI and below Exam Const: General: comfortable and no acute distress Eyes: Pupils: Equal, round and reactive pupils present Resp: Effort & Inspection: normal respiratory effort Auscultation: clear to auscultation bilaterally Cardio: Rate: regular rate Rhythm: regular rhythm GI: GI Palp: Yes Soft to palpation and No Tenderness to palpation present (GI) Neuro: Other: Weak Objective Data Vital Signs Vital Signs: Vital Signs - 24 hr 07/28/23 19:52 07/28/23 21:41 07/28/23 23:30 Temperature 97.8 F 97.8 F Pulse Rate 92 89 83 Respiratory Rate 28 H 24 H Blood Pressure 119/82 136/81 Pulse Oximetry 98 99 Oxygen Delivery 07/28/23 20:00 07/28/23 22:00 07/29/23 00:00 Temperature Pulse Rate 94 90 81 Respiratory Rate Blood Pressure Pulse Oximetry Oxygen Delivery 07/29/23 02:00 07/28/23 20:00 07/29/23 00:00 Temperature Pulse Rate 81 Respiratory Rate Blood Pressure Pulse Oximetry 99 98 Oxygen Delivery Room Air Room Air 07/29/23 04:00 07/29/23 04:00 07/29/23 04:00 Temperature 98.1 F Pulse Rate 81 85 87 Respiratory Rate 22 H Blood Pressure 126/75 Pulse Oximetry 99 98 Oxygen Delivery Room Air 07/29/23 06:00 07/29/23 07:35 07/29/23 08:00 Temperature 96.7 F L Pulse Rate 86 90 Respiratory Rate 20 Blood Pressure 125/86 Pulse Oximetry 99 99 Oxygen Delivery Room Air 07/29/23 08:00 07/29/23 10:00 07/29/23 11:08 Temperature 97.0 F L Pulse Rate 96 82 76 Respiratory Rate 18 Blood Pressure 127/82 Pulse Oximetry 98 Oxygen Delivery 07/29/23 12:00 07/29/23 12:00 07/29/23 14:00 Temperature Pulse Rate 88 90 Respiratory Rate Blood Pressure Pulse Oximetry Oxygen Delivery Room Air 07/29/23 16:00 07/29/23 16:49 Temperature 97.4 F L Pulse Rate 91 92 Respiratory Rate 18 Blood Pressure 127/79 Pulse Oximetry 98 Oxygen Delivery Intake/Output Intake/Output: Intake & Output 07/26/23 07/27/23 07/28/23 07/29/23 23:59 23:59 23:59 23:59 Intake Total 700 320 200 800 Output Total 2250 900 1150 1400 Balance -1550 -580 -950 -600 Meds/Results Medications: Active Medications Generic Name Dose Route Start Last Admin Trade Name Freq PRN Reason Stop Dose Admin Acetaminophen 650 mg 07/20/23 10:47 07/22/23 17:17 Acetaminophen 325 Mg Tablet PO 650 mg Q4H PRN Administration Fever > 100.5 Aspirin 81 mg 07/20/23 08:00 07/29/23 09:22 Aspirin 81 Mg Chewable Tablet PO 81 mg DAILY@0800 PAPO Administration Dextrose 12.5 gm 07/20/23 07:52 Dextrose 50% 25 Gm/50 Ml Syringe IV PUSH PRN PRN Hypoglycemia Protocol Enoxaparin Sodium 40 mg 07/20/23 09:00 07/29/23 09:23 Enoxaparin 40 Mg/0.4 Ml Syringe SUB-Q 40 mg DAILY PAPO Administration Glucagon 1 mg 07/20/23 07:52 Glucagon For Inj 1 Mg Vial IM PRN PRN Hypoglycemia Protocol Glucose 15 gm 07/20/23 07:52 Glucose Oral Gel 15 Gm Of Glucse In 37.5 Gm Tube PO PRN PRN Hypoglycemia Protocol Hydralazine HCl 20 mg 07/20/23 12:52 Hydralazine Hcl 20 Mg/Ml Vial IV PUSH Q4H PRN SBP more than 160 - 2nd choice Dextrose 1,000 mls @ 100 mls/hr 07/20/23 07:52 Dextros
[2023-07-30] VITALS (10 sets, daily range): BP systolic 124–145; BP diastolic 68–93; PULSE 65–94; RESP 16–20; TEMP 36.4–36.9; O2SAT 94–100
[2023-07-30 04:57] LABS: Basophils Absolute Auto 0.1 K/mm3 (0.0-0.1); Basophils Percent Auto 0.5 % (0.2-1.2); Eosinophils Absolute Auto 0.6 K/mm3 (0-0.3); Hemoglobin 13.9 g/dL (14.0-18.0); Immature Granulocyte Absolute 0.07 K/mm3 (0.00-0.031); Immature Granulocyte Percent A 0.6 % (0-0.5); Lymphocytes Percent Auto 17.3 % (18.3-44.2); Mean Corpuscular HGB Conc 33.9 g/dl (32-36); Mean Corpuscular Hemoglobin 31.2 pg (26-34); Mean Corpuscular Volume 91.9 fl (80-100); Monocytes Absolute Auto 1.1 K/mm3 (0.1-0.6); Monocytes Percent Auto 9.2 % (2.6-8.5); Neutrophils Absolute Auto 7.8 K/mm3 (1.3-6.7); Neutrophils Percent Auto 67.4 % (45.5-73.1); Platelet Count Result 380 k/mm3 (150-375); Red Blood Count 4.46 M/mm3 (4.6-6.20); Red Cell Distribution Width 11.9 % (11.5-14.5); White Blood Count 11.6 K/mm3 (4.5-10.0)
--- NOTE | 2023-07-30 04:57 | PC.NURSE ---
This patient, Andrews Sosa, was transferred to Room 319 on 07/30/23 at 0445. Personal belongings sent with patient. Report given to Nora TELLEZ. Appropriate documentation sent with patient.
[2023-07-30 05:13] LABS: Triglycerides 105 mg/dL (<150)
[2023-07-30 06:06] LABS: Procalcitonin 0.1 ng/mL
[2023-07-30] MEDS: ROSUVASTATIN 10 MG TABLET PO (08:10)
[2023-07-30] MEDS: ENOXAPARIN 40 MG/0.4 ML SYRINGE SUB-Q (08:10)
[2023-07-30] MEDS: ASPIRIN 81 MG CHEWABLE TABLET PO (08:11)
[2023-07-30] MEDS: METOPROLOL TARTRATE 12.5 MG TABLET PO (08:11)
[2023-07-30] MEDS: LOSARTAN POTASSIUM 25 MG TABLET PO (08:11)
[2023-07-30] MEDS: TICAGRELOR 90 MG TABLET PO ×2 (08:11→21:00)
[2023-07-30] MEDS: levETIRAcetam 1000MG/NACL100ML 1,000 MG/100 ML BAG 400 MG IVPB ×2 (08:12→21:00)
[2023-07-30] MEDS: PANTOPRAZOLE SODIUM IV 40 MG VIAL IV PUSH (08:12)
[2023-07-30] MEDS: TOLNAFTATE 1% POWDER 45 GM BTL 1 APPLIC TOPICAL ×2 (08:13→21:08)
--- NOTE | 2023-07-30 08:36 | PM.PNCARD ---
Progress Note: A&P Assessment and Plan (1) STEMI (ST elevation myocardial infarction): Code(s): I21.3 - ST elevation (STEMI) myocardial infarction of unspecified site Status: Acute Assessment and Plan: STEMI s/p PCI to LCX on 07/20/23. Echo with posterior hypokinesia, EF preserved. Continue DAPT with ASA indefinitely, Brilinta for 1 year Continue rosuvastatin 10mg daily Continue losartan 25mg daily Continue metoprolol, but will shift to Toprol XL 25mg daily Cardiac rehab referral Will arrange for outpatient follow up in our office in 2-3 weeks Stable from a cardiac perspective. Cardiology will sign off, please call with questions. Subjective Date/time seen: 07/30/23 08:36 Interval history: Cardiology follow up for CAD, STEMI Date of service 07/30/23: He is feeling well this morning and has no complaints. He denies any chest pain, shortness of breath. No longer being monitored on telemetry. Review of Systems Review of Systems: All systems reviewed & are unremarkable except as noted in HPI and below (HPI) ROS unobtainable: Yes unobtainable due to endotracheal tube and unobtainable due to mental status Exam Const: General: comfortable and no acute distress Other: Able to lie flat HENMT: Head: normal to inspection Mouth: Yes moist mucous membranes Eyes: General: appearance normal, both eyes and all related structures Sclera: sclerae normal Neck: Neck: supple and no JVD Carotids: no bruits Resp: Effort & Inspection: normal respiratory effort Auscultation: clear to auscultation bilaterally and lung sounds not diminished Other: No chest wall tenderness Cardio: Rate: regular rate Rhythm: regular rhythm Heart sounds: no gallops, no murmurs and no rubs Other: GI: Auscultation: normal bowel sounds Skin: General skin exam: normal color, rashes and/or lesions noted and no erythema Other: Warm Neuro: Speech: normal speech Other: Has significant weakness in upper extremities. Extrem: General: normal to inspection Psych: Mental Status: mental status grossly normal Affect: normal affect Objective Data Vital Signs Vital Signs: Vital Signs - 24 hr 07/29/23 10:00 07/29/23 11:08 07/29/23 12:00 Temperature 36.1 C L Pulse Rate 82 76 Respiratory Rate 18 Blood Pressure 127/82 Pulse Oximetry 98 Oxygen Delivery Room Air 07/29/23 12:00 07/29/23 14:00 07/29/23 16:00 Temperature Pulse Rate 88 90 91 Respiratory Rate Blood Pressure Pulse Oximetry Oxygen Delivery 07/29/23 16:49 07/29/23 19:48 07/29/23 20:46 Temperature 36.3 C L 37.0 C Pulse Rate 92 63 72 Respiratory Rate 18 18 Blood Pressure 127/79 125/85 Pulse Oximetry 98 98 Oxygen Delivery 07/29/23 20:00 07/30/23 02:01 07/30/23 04:11 Temperature 36.9 C Pulse Rate 65 83 Respiratory Rate 18 Blood Pressure 133/84 Pulse Oximetry 98 99 97 Oxygen Delivery Room Air 07/30/23 04:40 07/30/23 07:46 07/30/23 08:11 Temperature 36.9 C 36.6 C Pulse Rate 82 94 90 Respiratory Rate 16 18 Blood Pressure 144/82 H 145/93 H Pulse Oximetry 100 94 Oxygen Delivery 07/30/23 08:15 Temperature Pulse Rate 90 Respiratory Rate Blood Pressure Pulse Oximetry 97 Oxygen Delivery Room Air Intake/Output Intake/Output: Intake & Output 07/27/23 07/28/23 07/29/23 07/30/23 23:59 23:59 23:59 23:59 Intake Total 023 540 4504 Output Total 900 1150 1400 700 Balance -580 -950 -300 -700 Meds/Results Medications: Active Medications Generic Name Dose Route Start Last Admin Trade Name Freq PRN Reason Stop Dose Admin Acetaminophen 650 mg 07/20/23 10:47 07/22/23 17:17 Acetaminophen 325 Mg Tablet PO 650 mg Q4H PRN Administration Fever > 100.5 Aspirin 81 mg 07/20/23 08:00 07/30/23 08:11 Aspirin 81 Mg Chewable Tablet PO 81 mg DAILY@0800 PAPO Administration Dextrose 12.5 gm 07/20/23 07:52 Dextrose 50% 25
[2023-07-30] MEDS: EUCERIN CREAM 120 GM JAR 1 APPLIC TOPICAL (10:00)
--- NOTE | 2023-07-30 16:57 | PM.IMPN ---
Progress Note: A&P Assessment and Plan (1) Cardiac arrest: Code(s): I46.9 - Cardiac arrest, cause unspecified Status: Acute (2) Acute respiratory failure: Code(s): J96.00 - Acute respiratory failure, unspecified whether with hypoxia or hypercapnia Status: Acute (3) STEMI (ST elevation myocardial infarction): Code(s): I21.3 - ST elevation (STEMI) myocardial infarction of unspecified site Status: Acute (4) Anoxic brain injury: Code(s): G93.1 - Anoxic brain damage, not elsewhere classified Status: Acute (5) Aortic aneurysm: Code(s): I71.9 - Aortic aneurysm of unspecified site, without rupture Status: Acute Plan 57-year-old male with history of descending thoracic aortic aneurysm presented to the ER by EMS from home on the night of 07/19/2023 post cardiac arrest. His heard him fall out of bed and found him unresponsive and when EMS arrived he was in asystole and after 2 rounds of CPR he was noted to be in PEA and then ventricular fibrillation for which he was shocked twice with return of spontaneous circulation and sinus rhythm. reports he had complained of fatigue and back pain throughout the day. He appeared neurologically responsive on arrival to the ED and demonstrated purposeful movements such as pulling on lines and reaching for the ET tube. Brain CT showed cerebral atherosclerosis but no other acute intracranial abnormality. EKG showed concerns for STEMI in the flower shop laborer/designer was activated and he underwent successful emergent PCI with drug-eluting stent to the mid circumflex. He was transferred to the ICU. He was unresponsive with sedation holiday the following day without purposeful activity suggestive of anoxic brain injury. An EEG showed mild diffuse background slowing suggesting generalized encephalopathy he was started on levetiracetam due to twitching movements of the left side of the neck and arm. Brain MRI however negative for anoxic changes. He was extubated on 07/25 and transferred to the IMU. Hospitalist service was consulted for medical management. Later on, Cardiology felt they had no more to offer the patient and had the hospitalist service become the primary service. STEMI -status post drug-eluting stent to the midcircumflex on admission after cardiac arrest -cardiology has signed off. They recommend continue DAPT with aspirin indefinitely and Brilinta for 1 year -recommend follow-up in the line maintainer's office in 2-3 weeks and outpatient cardiac rehab -recommend continue rosuvastatin 10 mg daily, losartan 25 mg daily, Toprol XL 25 mg daily Encephalopathy and weakness -read the chronicity as above. Neurology has been consulted. 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 EMG/NCS as outpatient -MRI cervical thoracic lumbosacral spine conducted. Cervical spine myelomalacia. Pending neurosurgery opinion. Leukocytosis -mild. Check Procalcitonin. Patient does not have identifiable source of infection at the moment. Afebrile. FEN: Saline lock IV. Heart healthy diet, minced and moist level 5. GI prophylaxis: Protonix DVT prophylaxis: Lovenox Lines: Peripheral IV, remove Guzman on 07/29 Code Status: Full code. Dispo: Stable on medical floor. If Neurosurgery does not require further patient care, the patient is ready to go. Care coordination setting up prior authorization for SNF for rehab. Subjective Date/time seen: 07/30/23 16:57 Interval history: No acute overnight events. Patient sits up in chair. Lunch sits in front of them. I asked him if he is ready to eat and he states maybe . He thinks he is at the library. He denies any pain. He follows commands intermittently. Review of Systems Review of Systems: All systems reviewed & are unremarkable except as noted in HPI and below (Subjective) Exam Const: General: comfortable and no acute distress Other: A&O times 1-2. Delayed alea
[2023-07-31] VITALS (7 sets, daily range): BP systolic 110–136; BP diastolic 67–92; PULSE 82–101; RESP 16–18; TEMP 35.6–36.4; O2SAT 97–99
[2023-07-31 06:32] LABS: Basophils Absolute Auto 0.1 K/mm3 (0.0-0.1); Basophils Percent Auto 0.5 % (0.2-1.2); Eosinophils Absolute Auto 0.6 K/mm3 (0-0.3); Eosinophils Percent Auto 5.1 % (0-4.4); Hematocrit 40.6 % (42.0-52.0); Hemoglobin 13.6 g/dL (14.0-18.0); Immature Granulocyte Absolute 0.06 K/mm3 (0.00-0.031); Immature Granulocyte Percent A 0.5 % (0-0.5); Lymphocytes Absolute Auto 1.87 K/mm3 (0.9-3.2); Lymphocytes Percent Auto 17.1 % (18.3-44.2); Mean Corpuscular HGB Conc 33.5 g/dl (32-36); Mean Corpuscular Hemoglobin 31.1 pg (26-34); Mean Corpuscular Volume 92.9 fl (80-100); Mean Platelet Volume 9.2 fl (7.4-10.4); Monocytes Absolute Auto 0.8 K/mm3 (0.1-0.6); Monocytes Percent Auto 7.1 % (2.6-8.5); Neutrophils Absolute Auto 7.6 K/mm3 (1.3-6.7); Neutrophils Percent Auto 69.7 % (45.5-73.1); Platelet Count Result 406 k/mm3 (150-375); Red Blood Count 4.37 M/mm3 (4.6-6.20); Red Cell Distribution Width 11.9 % (11.5-14.5); White Blood Count 10.9 K/mm3 (4.5-10.0)
[2023-07-31 06:42] LABS: Anion Gap 9 mmol/L (4-12); Blood Urea Nitrogen 23 mg/dL (9-20); Calcium 8.9 mg/dL (8.4-10.2); Carbon Dioxide 25 mmol/L (22-30); Chloride 105 mmol/L (98-107); Estimated CRCL calculation 98 ml/min; Estimated Glomerular Filt Rate > 60; Glucose 103 mg/dL (65-110); Potassium 3.6 mmol/L (3.4-5.0); Sodium 139 mmol/L (137-145)
[2023-07-31 07:28] LABS: Procalcitonin 0.1 ng/mL
[2023-07-31] MEDS: ROSUVASTATIN 10 MG TABLET PO (08:43)
[2023-07-31] MEDS: ASPIRIN 81 MG CHEWABLE TABLET PO (08:43)
[2023-07-31] MEDS: TICAGRELOR 90 MG TABLET PO ×2 (08:44→20:11)
[2023-07-31] MEDS: METOPROLOL SUCCINATE EXT REL 25 MG TABCR PO (08:44)
[2023-07-31] MEDS: LOSARTAN POTASSIUM 25 MG TABLET PO (08:44)
[2023-07-31] MEDS: ENOXAPARIN 40 MG/0.4 ML SYRINGE SUB-Q (08:44)
[2023-07-31] MEDS: PANTOPRAZOLE SODIUM IV 40 MG VIAL IV PUSH (08:44)
[2023-07-31] MEDS: levETIRAcetam 1000MG/NACL100ML 1,000 MG/100 ML BAG 400 MG IVPB ×2 (10:07→20:11)
[2023-07-31] MEDS: TOLNAFTATE 1% POWDER 45 GM BTL 1 APPLIC TOPICAL ×2 (10:08→20:16)
--- NOTE | 2023-07-31 16:49 | PM.IMPN ---
Progress Note: A&P Assessment and Plan (1) Cardiac arrest: Code(s): I46.9 - Cardiac arrest, cause unspecified Status: Acute (2) Acute respiratory failure: Code(s): J96.00 - Acute respiratory failure, unspecified whether with hypoxia or hypercapnia Status: Acute (3) STEMI (ST elevation myocardial infarction): Code(s): I21.3 - ST elevation (STEMI) myocardial infarction of unspecified site Status: Acute (4) Anoxic brain injury: Code(s): G93.1 - Anoxic brain damage, not elsewhere classified Status: Acute (5) Aortic aneurysm: Code(s): I71.9 - Aortic aneurysm of unspecified site, without rupture Status: Acute Plan 57-year-old male with history of descending thoracic aortic aneurysm presented to the ER by EMS from home on the night of 07/19/2023 post cardiac arrest. His heard him fall out of bed and found him unresponsive and when EMS arrived he was in asystole and after 2 rounds of CPR he was noted to be in PEA and then ventricular fibrillation for which he was shocked twice with return of spontaneous circulation and sinus rhythm. reports he had complained of fatigue and back pain throughout the day. He appeared neurologically responsive on arrival to the ED and demonstrated purposeful movements such as pulling on lines and reaching for the ET tube. Brain CT showed cerebral atherosclerosis but no other acute intracranial abnormality. EKG showed concerns for STEMI in the boat laborer was activated and he underwent successful emergent PCI with drug-eluting stent to the mid circumflex. He was transferred to the ICU. He was unresponsive with sedation holiday the following day without purposeful activity suggestive of anoxic brain injury. An EEG showed mild diffuse background slowing suggesting generalized encephalopathy he was started on levetiracetam due to twitching movements of the left side of the neck and arm. Brain MRI however negative for anoxic changes. He was extubated on 07/25 and transferred to the IMU. Hospitalist service was consulted for medical management. Later on, Cardiology felt they had no more to offer the patient and had the hospitalist service become the primary service. STEMI -status post drug-eluting stent to the midcircumflex on admission after cardiac arrest -cardiology has signed off. They recommend continue DAPT with aspirin indefinitely and Brilinta for 1 year -recommend follow-up in the mix house operator's office in 2-3 weeks and outpatient cardiac rehab -recommend continue rosuvastatin 10 mg daily, losartan 25 mg daily, Toprol XL 25 mg daily Encephalopathy and weakness -read the chronicity as above. Neurology has been consulted. 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 EMG/NCS as outpatient -MRI cervical thoracic lumbosacral spine conducted. Cervical spine myelomalacia. Pending neurosurgery opinion. Leukocytosis -mild. Check Procalcitonin. Patient does not have identifiable source of infection at the moment. Afebrile. FEN: Saline lock IV. Heart healthy diet, minced and moist level 5. GI prophylaxis: Protonix DVT prophylaxis: Lovenox Lines: Peripheral IV, remove Guzman on 07/29 Code Status: Full code. Dispo: Stable on medical floor. If Neurosurgery does not require further patient care, the patient is ready to go. Care coordination setting up prior authorization for SNF for rehab. Time Spent With Patient Time with patient: 25 - 35 minutes Subjective Date/time seen: 07/31/23 16:49 Interval history: No acute overnight events. Patient sits up in chair. Lunch sits in front of them. I asked him if he is ready to eat and he states maybe . He thinks he is at the library. He denies any pain. He follows commands intermittently. 07/31/23: Seen and examined; awaiting SNF placement Review of Systems Review of Systems: Difficult to obtain given his current clinical condition; he denied a
--- NOTE | 2023-07-31 18:22 | WPDNEUROSGCN ---
Assessment and Plan Assessment and plan (1) Encephalopathy: Code(s): G93.40 - Encephalopathy, unspecified Status: Acute Plan Mr. Sosa is a 57-year-old male with history of recent STEMI s/p stent placement on aspirin/Brilinta who has had a prolonged neurologic recovery this hospitalization with concern at one time for anoxic brain injury. Per the Neurology notes, he was very weak several days ago, but this evening, he is moving his arms and legs with good strength with exception of some possible slight weakness in the hand talend developer and intrinsics. His sensation is intact, and he does not have any abnormal reflexes to suggest myelopathy. MRI cervical spine quality is degraded by motion. There appears to be disc bulges at C5-6 and C6-7 with possible T2-cord signal change at these levels. It is difficult to tell the degree of stenosis at these levels. Regardless, he neurologically seems to be improving significantly over the last few days, and he does not have objective findings of myelopathy. He is not a surgical candidate at this time anyway as he cannot stop his current blood thinners. I would have him go to SNF as planned to continue his recovery. If he continues to have hand weakness in the future or if he develops other symptoms of myelopathy, I am happy to see him as an outpatient with a better-quality MRI. Consult date: 07/31/23 HPI: Andrews Sosa is a 57 year old male who was admitted on 07/18 with a STEMI for which he had a PCI with a drug-eluting stent. He was in the ICU with concern for an anoxic brain injury which was eventually ruled out. He was started on keppra and demonstrated neurologic improvement. He was extubated on 07/25 and is now awaiting rehab. Due to apparent concern for weakness in his extremities, MRI spine was performed several days ago. Neurosurgery was consulted today for possible myelomalacia in the cervical spine. The patient currently denies any complaints. He has no pain in the arms or legs. He denies numbness/paresthesias in the extremities. He thinks he is moving everything well. Review of Systems Review of Systems: All systems reviewed & are unremarkable except as noted in HPI and below PMFSH Past Medical History Medical History Coronary artery disease Descending thoracic aortic aneurysm 4.[address] taken 07/19/2023 Osteoarthritis of hands, bilateral ST elevation myocardial infarct involv left circumflex coronary artery (07/19/23) Surgical History Surgical History History of cardiac catheterization (07/20/23) History of coronary artery stent placement (07/20/23) Family History Family History Mother , at 74 from Stroke Diabetes mellitus Acute myocardial infarction Cerebrovascular accident Father , at 54 from Heart Attack Acute myocardial infarction Social History Social History Social History: Surrogate medical decision maker: Ade Sosa, spouse. Code status: Full code. Smoking packs per day: 1.5 Smoking cigarettes per day: 30.0 Years smoked: 20 Smoking pack-years: 30.00 Smoking status: Former smoker Tobacco type: cigarettes Alcohol intake: never Alcohol use details: Beer occasionally Substance use: current Substance use type: marijuana Last use: 07/19/23 Spiritual care concerns: No Meds Home Medications and Allergies Home Medications Medication Instructions Recorded Confirmed Type metoprolol succinate 25 mg 25 mg PO HS 07/20/23 07/20/23 History tablet,extended release 24 hr Allergies Allergy/AdvReac Type Severity Reaction Status Date / Time No Known Allergies Allergy Verified 07/20/23 02:53 Vital Signs Vital Signs - 24 hr 07/30/23 20:00 07/30/23 23:52 07/31/23 04:00 Temp
[2023-08-01] VITALS (7 sets, daily range): BP systolic 110–131; BP diastolic 66–84; PULSE 76–100; RESP 16–18; TEMP 36.3–36.9; O2SAT 98–99
[2023-08-01 06:19] LABS: Basophils Absolute Auto 0.1 K/mm3 (0.0-0.1); Basophils Percent Auto 0.4 % (0.2-1.2); Eosinophils Absolute Auto 0.4 K/mm3 (0-0.3); Eosinophils Percent Auto 3.3 % (0-4.4); Hematocrit 40.9 % (42.0-52.0); Hemoglobin 14.1 g/dL (14.0-18.0); Immature Granulocyte Absolute 0.07 K/mm3 (0.00-0.031); Immature Granulocyte Percent A 0.6 % (0-0.5); Lymphocytes Absolute Auto 2.26 K/mm3 (0.9-3.2); Lymphocytes Percent Auto 18.4 % (18.3-44.2); Mean Corpuscular HGB Conc 34.5 g/dl (32-36); Mean Corpuscular Hemoglobin 31.8 pg (26-34); Mean Corpuscular Volume 92.3 fl (80-100); Mean Platelet Volume 9.4 fl (7.4-10.4); Monocytes Percent Auto 7.8 % (2.6-8.5); Neutrophils Absolute Auto 8.5 K/mm3 (1.3-6.7); Neutrophils Percent Auto 69.5 % (45.5-73.1); Platelet Count Result 437 k/mm3 (150-375); Red Blood Count 4.43 M/mm3 (4.6-6.20); White Blood Count 12.3 K/mm3 (4.5-10.0)
[2023-08-01 06:27] LABS: Alanine Aminotransferase 67 U/L (6-50); Alkaline Phosphatase 74 U/L (38-126); Anion Gap 6 mmol/L (4-12); Aspartate Amino Transferase 42 U/L (17-59); Bilirubin,Total 0.6 mg/dL (0.2-1.3); Blood Urea Nitrogen 23 mg/dL (9-20); Carbon Dioxide 27 mmol/L (22-30); Chloride 104 mmol/L (98-107); Estimated CRCL calculation 111 ml/min; Estimated Glomerular Filt Rate > 60; Glucose 106 mg/dL (65-110); Potassium 3.8 mmol/L (3.4-5.0); Sodium 137 mmol/L (137-145)
[2023-08-01] MEDS: ASPIRIN 81 MG CHEWABLE TABLET PO (08:47)
[2023-08-01] MEDS: ENOXAPARIN 40 MG/0.4 ML SYRINGE SUB-Q (08:47)
[2023-08-01] MEDS: METOPROLOL SUCCINATE EXT REL 25 MG TABCR PO (08:47)
[2023-08-01] MEDS: ROSUVASTATIN 10 MG TABLET PO (08:47)
[2023-08-01] MEDS: PANTOPRAZOLE SODIUM IV 40 MG VIAL IV PUSH (08:47)
[2023-08-01] MEDS: TICAGRELOR 90 MG TABLET PO (08:47)
[2023-08-01] MEDS: LOSARTAN POTASSIUM 25 MG TABLET PO (08:47)
[2023-08-01] MEDS: levETIRAcetam 1000MG/NACL100ML 1,000 MG/100 ML BAG 400 MG IVPB (08:48)
[2023-08-01] MEDS: TOLNAFTATE 1% POWDER 45 GM BTL 1 APPLIC TOPICAL (10:00)
[2023-08-01] MEDS: EUCERIN CREAM 120 GM JAR 1 APPLIC TOPICAL (10:00)
--- NOTE | 2023-08-01 11:53 | PCNFU ---
Nutrition Follow-Up Complete: Increased protein energy needs related to mechanical ventilation as evidenced by need for full tube feeding Goal:Meet estimated protein energy needs Pt is meeting goal. Pt current nutrition is Mince and moist level 5, Ensure compact TID. Nutrition recommendation: continue with current plan of care. Last recorded weight is 97.2 kg. Bowel Motility: +BM 07/31 Labs Reviewed: HCT:40.9, BUN:23 Meds Noted: lovenox, protonix Skin: WNL Additional Notes: Pt continues on a minced and moist level 5, intake good at 50-100% of meals at this time. Ensure compact for supplement TID. Agree with diet orders. Monitoring intake, labs, weights, bowel movements Follow up in 7 days.
--- NOTE | 2023-08-01 12:44 | PM.IMPN ---
Progress Note: A&P Assessment and Plan (1) Cardiac arrest: Code(s): I46.9 - Cardiac arrest, cause unspecified Status: Acute (2) Acute respiratory failure: Code(s): J96.00 - Acute respiratory failure, unspecified whether with hypoxia or hypercapnia Status: Acute (3) STEMI (ST elevation myocardial infarction): Code(s): I21.3 - ST elevation (STEMI) myocardial infarction of unspecified site Status: Acute (4) Anoxic brain injury: Code(s): G93.1 - Anoxic brain damage, not elsewhere classified Status: Acute (5) Aortic aneurysm: Code(s): I71.9 - Aortic aneurysm of unspecified site, without rupture Status: Acute Plan 57-year-old male with history of descending thoracic aortic aneurysm presented to the ER by EMS from home on the night of 07/19/2023 post cardiac arrest. His heard him fall out of bed and found him unresponsive and when EMS arrived he was in asystole and after 2 rounds of CPR he was noted to be in PEA and then ventricular fibrillation for which he was shocked twice with return of spontaneous circulation and sinus rhythm. reports he had complained of fatigue and back pain throughout the day. He appeared neurologically responsive on arrival to the ED and demonstrated purposeful movements such as pulling on lines and reaching for the ET tube. Brain CT showed cerebral atherosclerosis but no other acute intracranial abnormality. EKG showed concerns for STEMI in the slab lifting supervisor was activated and he underwent successful emergent PCI with drug-eluting stent to the mid circumflex. He was transferred to the ICU. He was unresponsive with sedation holiday the following day without purposeful activity suggestive of anoxic brain injury. An EEG showed mild diffuse background slowing suggesting generalized encephalopathy he was started on levetiracetam due to twitching movements of the left side of the neck and arm. Brain MRI however negative for anoxic changes. He was extubated on 07/25 and transferred to the IMU. Hospitalist service was consulted for medical management. Later on, Cardiology felt they had no more to offer the patient and had the hospitalist service become the primary service. STEMI -status post drug-eluting stent to the midcircumflex on admission after cardiac arrest -cardiology has signed off. They recommend continue DAPT with aspirin indefinitely and Brilinta for 1 year -recommend follow-up in the portable track crew chief's office in 2-3 weeks and outpatient cardiac rehab -recommend continue rosuvastatin 10 mg daily, losartan 25 mg daily, Toprol XL 25 mg daily Encephalopathy and weakness -read the chronicity as above. Neurology has been consulted. 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 EMG/NCS as outpatient -MRI cervical thoracic lumbosacral spine conducted. Cervical spine myelomalacia. Pending neurosurgery opinion. Leukocytosis -mild. Check Procalcitonin. Patient does not have identifiable source of infection at the moment. Afebrile. FEN: Saline lock IV. Heart healthy diet, minced and moist level 5. GI prophylaxis: Protonix DVT prophylaxis: Lovenox Lines: Peripheral IV, remove Guzman on 07/29 Code Status: Full code. Dispo: Stable on medical floor. If Neurosurgery does not require further patient care, the patient is ready to go. Care coordination setting up prior authorization for SNF for rehab. Time Spent With Patient Time with patient: 25 - 35 minutes Subjective Date/time seen: 08/01/23 12:44 Interval history: No acute overnight events. Patient sits up in chair. Lunch sits in front of them. I asked him if he is ready to eat and he states maybe . He thinks he is at the library. He denies any pain. He follows commands intermittently. 07/31/23: Seen and examined; awaiting SNF placement 08/01/23: Seen and examined; denies fresh concerns Review of Systems Review of Systems: Difficult to obtai
--- NOTE | 2023-08-01 18:53 | PM.DS ---
DS: Admitting Diagnosis Discharge Date 08/01/23 Admitting Diagnosis 1. STEMI s/p PCI 2. Anoxic brain injury 3. Physical deconditioning 4. Cardiac arrest, s/p resuscitation 5. Acute hypoxic respiratory failure 6. Aortic aneurysm DS: Discharge Diagnosis Discharge Diagnosis (1) Cardiac arrest: Code(s): I46.9 - Cardiac arrest, cause unspecified Status: Acute (2) Acute respiratory failure: Code(s): J96.00 - Acute respiratory failure, unspecified whether with hypoxia or hypercapnia Status: Acute (3) STEMI (ST elevation myocardial infarction): Code(s): I21.3 - ST elevation (STEMI) myocardial infarction of unspecified site Status: Acute (4) Anoxic brain injury: Code(s): G93.1 - Anoxic brain damage, not elsewhere classified Status: Acute (5) Aortic aneurysm: Code(s): I71.9 - Aortic aneurysm of unspecified site, without rupture Status: Acute Plan 57-year-old male with history of descending thoracic aortic aneurysm presented to the ER by EMS from home on the night of 07/19/2023 post cardiac arrest. His heard him fall out of bed and found him unresponsive and when EMS arrived he was in asystole and after 2 rounds of CPR he was noted to be in PEA and then ventricular fibrillation for which he was shocked twice with return of spontaneous circulation and sinus rhythm. reports he had complained of fatigue and back pain throughout the day. He appeared neurologically responsive on arrival to the ED and demonstrated purposeful movements such as pulling on lines and reaching for the ET tube. Brain CT showed cerebral atherosclerosis but no other acute intracranial abnormality. EKG showed concerns for STEMI in the laborer driver was activated and he underwent successful emergent PCI with drug-eluting stent to the mid circumflex. He was transferred to the ICU. He was unresponsive with sedation holiday the following day without purposeful activity suggestive of anoxic brain injury. An EEG showed mild diffuse background slowing suggesting generalized encephalopathy he was started on levetiracetam due to twitching movements of the left side of the neck and arm. Brain MRI however negative for anoxic changes. He was extubated on 07/25 and transferred to the IMU. Hospitalist service was consulted for medical management. Later on, Cardiology felt they had no more to offer the patient and had the hospitalist service become the primary service. 1. STEMI s/p PCI 2. Anoxic brain injury 3. Physical deconditioning 4. Cardiac arrest, s/p resuscitation 5. Acute hypoxic respiratory failure 6. Aortic aneurysm STEMI -status post drug-eluting stent to the midcircumflex on admission after cardiac arrest -cardiology has signed off. They recommend continue DAPT with aspirin indefinitely and Brilinta for 1 year -recommend follow-up in the swimming pool service technician's office in 2-3 weeks and outpatient cardiac rehab -recommend continue rosuvastatin 10 mg daily, losartan 25 mg daily, Toprol XL 25 mg daily Encephalopathy and weakness -read the chronicity as above. Neurology has been consulted. 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 EMG/NCS as outpatient -MRI cervical thoracic lumbosacral spine conducted. Cervical spine myelomalacia. Pending neurosurgery opinion. Anoxic brain injury Physical deconditioning FEN: Saline lock IV. Heart healthy diet, minced and moist level 5. GI prophylaxis: Protonix DVT prophylaxis: Lovenox Lines: Peripheral IV, remove Guzman on 07/29 Code Status: Full code. Dispo: Stable on medical floor. If Neurosurgery does not require further patient care, the patient is ready to go. Care coordination setting up prior authorization for SNF for rehab. DS: Summary Hospital Course Hospital Course: Chief Complaint: ?out of hospital cardiac arrest, ST-elevation [place] Narrative: ?Mr. Sosa is a 57 year old male with a history of hypertension and
--- NOTE | 2023-08-01 19:18 | PC.NURSE ---
This RN called report to Freedom TELLEZ at [facility]. ETA of EMS shared with facility.
== END 2023-08-01 19:58 | DRG 321 ==
LOC: ANHED 23:15 → ANHICU 23:22 → ANHIMU 07-28 11:19 → ANH3MEDSUR 08-01 18:52 → ANHICU 08-02 07:54 → ANHIMU 08-02 07:54
PROVIDERS: General Practice; Internal Medicine; Physician Assistant; Admitting Provider Specialist; Emergency Provider Emergency Medicine; PCP Family Medicine; Visit Provider Internal Medicine
PROC: 4A023N7 Measurement of Cardiac Sampling and Pressure, Left Heart, Percutaneous Approach (ICD-10-PCS; CPT 93454; principal; 2023-07-19 23:40)
PROC: 4A023N7 Measurement of Cardiac Sampling and Pressure, Left Heart, Percutaneous Approach (ICD-10-PCS; 2023-07-19 23:40)
DX: I21.29 ST elevation (STEMI) myocardial infarction involving other sites (principal); I46.2 Cardiac arrest due to underlying cardiac condition; J96.01 Acute respiratory failure with hypoxia; J69.0 Pneumonitis due to inhalation of food and vomit; G93.1 Anoxic brain damage, not elsewhere classified; G95.89 Other specified diseases of spinal cord; M62.82 Rhabdomyolysis; I25.10 Atherosclerotic heart disease of native coronary artery without angina pectoris; E78.5 Hyperlipidemia, unspecified; I71.23 Aneurysm of the descending thoracic aorta, without rupture; I67.2 Cerebral atherosclerosis; I10 Essential (primary) hypertension; M47.816 Spondylosis without myelopathy or radiculopathy, lumbar region; M47.814 Spondylosis without myelopathy or radiculopathy, thoracic region; Z87.891 Personal history of nicotine dependence; Z79.82 Long term (current) use of aspirin
CPT/HCPCS: 36415; 36600; 70450; 70553; 71045; 71275; 72125; 72156; 72157; 72158; 74174; 80048; 80053; 80061; 82140; 82375; 82550; 82607; 82805; 82948; 83036; 83050; 83605; 83735; 84100; 84145; 84439; 84443; 84478; 84480; 84484; 85025; 85027; 85055; 85610; 85730; 86140; 86850; 86900; 86901; 87040; 87070; 87205; 87641; 92507; 92526; 92610; 92611; 92950; 93005; 93306; 93454; 94002; 94003; 95816; 97110; 97116; 97162; 97167; 97530; 97535; 99291; A9270; A9577; C1725; C1769; C1874; C1887; C1894; C9113; C9606; J0583; J1644; J1650; J1953; J2250; J2543; J2704; J2765; J3010; J3480; J7030; J7040; J7120; L1830; Q9967

== ENCOUNTER 2023-08-07 03:18 | Emergency (ER) | payer OTHER, SELFPAY ==
[2023-08-07] VITALS (11 sets, daily range): BP systolic 113–143; BP diastolic 74–94; PULSE 94–119; RESP 15–21; TEMP 37.1; O2SAT 97–99
--- NOTE | ~2023-08-07 | XR_ITS ---
Portable chest x-ray Comparison: 07/25/2023 Clinical History: Altered mental status Findings: Lungs are clear, without focal consolidation or pleural effusion. Cardiomediastinal silho uette is stable. Bones and soft tissues are unremarkable. Impression: Clear lungs. Reviewed, dictated and finalized at location . Impression: Clear lungs.
--- NOTE | ~2023-08-07 | CT_ITS ---
Non-contrast Head CT History: Mental status change COMPARISON: 07/24/2023 Technique: Axial non-contrast imaging of the brain was performed. Dose reduction technique was used on this scan by utilizing automated exposure control and iterative reconstruction technique. The dose -length product (DLP) was 605.33 mGy-cm. Findings: There is no evidence of intracranial hemorrhage, mass lesion, or acute infarct. Brain par enchyma appears normal. The ventricles and subarachnoid spaces are normal in size. The calvarium ap pears normal. The visualized paranasal sinuses and mastoid air cells are clear. Impression: No significant abnormality seen. Reviewed, dictated and finalized at location . Impression: No significant abnormality seen.
--- NOTE | 2023-08-07 03:49 | ECG_ITS ---
SEE SCANNED COPY FOR CONFIRMED REPORT MTDD
[2023-08-07 04:27] LABS: Basophils Absolute Auto 0.1 K/mm3 (0.0-0.1); Basophils Percent Auto 0.3 % (0.2-1.2); Eosinophils Absolute Auto 0.1 K/mm3 (0-0.3); Eosinophils Percent Auto 0.8 % (0-4.4); Hematocrit 38.1 % (42.0-52.0); Hemoglobin 13.3 g/dL (14.0-18.0); Immature Granulocyte Absolute 0.09 K/mm3 (0.00-0.031); Immature Granulocyte Percent A 0.6 % (0-0.5); Lymphocytes Absolute Auto 0.98 K/mm3 (0.9-3.2); Lymphocytes Percent Auto 6.4 % (18.3-44.2); Mean Corpuscular HGB Conc 34.9 g/dl (32-36); Mean Corpuscular Hemoglobin 31.9 pg (26-34); Mean Corpuscular Volume 91.4 fl (80-100); Mean Platelet Volume 8.9 fl (7.4-10.4); Monocytes Percent Auto 6.4 % (2.6-8.5); Neutrophils Absolute Auto 13.1 K/mm3 (1.3-6.7); Neutrophils Percent Auto 85.5 % (45.5-73.1); Platelet Count Result 462 k/mm3 (150-375); Red Blood Count 4.17 M/mm3 (4.6-6.20); White Blood Count 15.3 K/mm3 (4.5-10.0)
[2023-08-07 04:39] LABS: Alanine Aminotransferase 39 U/L (6-50); Albumin Level 4.2 g/dL (3.5-5.1); Alkaline Phosphatase 101 U/L (38-126); Anion Gap 11 mmol/L (4-12); Aspartate Amino Transferase 34 U/L (17-59); Bilirubin,Total 0.6 mg/dL (0.2-1.3); Blood Urea Nitrogen 20 mg/dL (9-20); Calcium 9.3 mg/dL (8.4-10.2); Carbon Dioxide 25 mmol/L (22-30); Chloride 100 mmol/L (98-107); Estimated CRCL calculation 90 ml/min; Estimated Glomerular Filt Rate > 60; Glucose 137 mg/dL (65-110); Lactic Acid Reflex 1.8 mmol/L (0.7-2.0); Potassium 3.5 mmol/L (3.4-5.0); Sodium 136 mmol/L (137-145)
[2023-08-07 04:42] LABS: Appearance Urine Clear (Clear); Bacteria Urine None Seen /hpf; Bilirubin Urine Negative (Negative); Blood Urine 1+ (Negative); Color Urine Yellow (Yellow); Glucose Urine UA Negative (Negative); Ketones Urine Negative (Negative); Leukocyte Esterase Ur 2+ LEU/UL (Negative); Nitrate Urine Negative (Negative); Protein Urine Negative (Negative); Specific Grav Ur 1.014 (1.001-1.035); Squamous Epithelial Cell Urine Occasional /hpf (Few); Urobilinogen Urine 0.2 mg/dL (<2.0); WBC Urine 21-50 /hpf (0-3); pH Urine 5.5 (5.0-9.0)
[2023-08-07 04:50] LABS: Troponin I 0.027 ng/mL (0.000-0.034)
[2023-08-07 04:54] LABS: Add Urine Microscopic? YES
[2023-08-07 05:01] LABS: Procalcitonin 0.1 ng/mL
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
--- NOTE | 2023-08-07 07:07 | PC.NURSE ---
Bedside report given to ROSALINDA Zarco. RN stated she had no questions for me at this time.
--- NOTE | 2023-08-07 09:46 | PC.NURSE ---
Left a message for MADHAVI Cortez at [facility] to return call to speak with her about patient returning to facility
--- NOTE | 2023-08-07 10:32 | PC.NURSE ---
Spoke with Aby with care coordination. She states she will contact the CNO and relay message to call me.
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
== END 2023-08-07 15:17 | disposition home or self-care (01) ==
PROVIDERS: Emergency Medicine; Emergency Provider Student in an Organized Health Care Education/Training Program; PCP Family Medicine
DX: N39.0 Urinary tract infection, site not specified (principal); R45.1 Restlessness and agitation; D72.829 Elevated white blood cell count, unspecified; D64.9 Anemia, unspecified; D75.839 Thrombocytosis, unspecified; I25.10 Atherosclerotic heart disease of native coronary artery without angina pectoris; I71.23 Aneurysm of the descending thoracic aorta, without rupture; I25.2 Old myocardial infarction; M19.042 Primary osteoarthritis, left hand; M19.041 Primary osteoarthritis, right hand; Z95.5 Presence of coronary angioplasty implant and graft; Z87.891 Personal history of nicotine dependence; R94.31 Abnormal electrocardiogram [ECG] [EKG]
CPT/HCPCS: 36415; 70450; 71045; 80053; 81001; 83605; 84145; 84484; 85025; 87040; 87077; 87086; 87088; 87181; 93005; 96365; 99284; J0696

== ENCOUNTER 2023-08-12 14:30 | Emergency (ER) | payer OTHER, SELFPAY ==
[2023-08-12 14:31] VITALS: BP 104/67; PULSE 95; RESP 16; TEMP 37.2; O2SAT 98
[2023-08-12 16:15] VITALS: BP 115/70; PULSE 81; RESP 18; O2SAT 98
[2023-08-12 16:44] LABS: Basophils Percent Auto 0.3 % (0.2-1.2); Eosinophils Absolute Auto 0.3 K/mm3 (0-0.3); Eosinophils Percent Auto 5.2 % (0-4.4); Hematocrit 36.2 % (42.0-52.0); Hemoglobin 12.2 g/dL (14.0-18.0); Immature Granulocyte Absolute 0.05 K/mm3 (0.00-0.031); Immature Granulocyte Percent A 0.8 % (0-0.5); Lymphocytes Absolute Auto 1.51 K/mm3 (0.9-3.2); Mean Corpuscular HGB Conc 33.7 g/dl (32-36); Mean Corpuscular Hemoglobin 31.4 pg (26-34); Mean Corpuscular Volume 93.3 fl (80-100); Mean Platelet Volume 8.7 fl (7.4-10.4); Monocytes Absolute Auto 0.6 K/mm3 (0.1-0.6); Neutrophils Absolute Auto 3.8 K/mm3 (1.3-6.7); Neutrophils Percent Auto 59.7 % (45.5-73.1); Platelet Count Result 333 k/mm3 (150-375); Red Blood Count 3.88 M/mm3 (4.6-6.20); Red Cell Distribution Width 12.3 % (11.5-14.5); White Blood Count 6.3 K/mm3 (4.5-10.0)
[2023-08-12 16:54] LABS: Alanine Aminotransferase 71 U/L (6-50); Albumin Level 3.9 g/dL (3.5-5.1); Alkaline Phosphatase 104 U/L (38-126); Anion Gap 8 mmol/L (4-12); Aspartate Amino Transferase 60 U/L (17-59); Bilirubin,Total 0.4 mg/dL (0.2-1.3); Blood Urea Nitrogen 10 mg/dL (9-20); Calcium 8.8 mg/dL (8.4-10.2); Carbon Dioxide 26 mmol/L (22-30); Chloride 104 mmol/L (98-107); Estimated CRCL calculation 77 ml/min; Estimated Glomerular Filt Rate > 60; Glucose 111 mg/dL (65-110); Potassium 4.3 mmol/L (3.4-5.0); Sodium 138 mmol/L (137-145)
[2023-08-12 16:55] LABS: Lactic Acid Reflex 1.4 mmol/L (0.7-2.0)
--- NOTE | 2023-08-12 17:36 | ED.RECABL ---
HPI - Recheck/Abnormal Lab/Rx General Chief Complaint: Recheck/Abnormal Lab/Rx Stated Complaint: MRSA, was told by PCP to come for antibiotics Time Seen by Provider: 08/12/23 16:19 History of Present Illness HPI narrative: Patient is a 57-year-old male who presents ER with positive blood cultures that were drawn on 08/09/2023. They show Gram-positive cocci in clusters. 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 He also had MRSA in his urine. He had been treated with cephalexin prior to knowing that there is MRSA in his blood. He was switched to Bactrim on 08/10/2023. He has been doing well. Mild fever last night. No chest pain or chest pressure. No dysuria. No cough. Patient has some encephalopathy since his cardiac arrest and reports that he still thinks his mom might be alive though she 17 years ago. Related Data Allergies Allergy/AdvReac Type Severity Reaction Status Date / Time No Known Allergies Allergy Verified 08/12/23 16:23 Review of Systems Review of Systems: ROS unobtainable: Yes unobtainable due to mental status [facility] Past Medical History Medical History Coronary artery disease Descending thoracic aortic aneurysm 4.[address] taken 07/19/2023 Osteoarthritis of hands, bilateral ST elevation myocardial infarct involv left circumflex coronary artery (07/19/23) Surgical History Surgical History History of cardiac catheterization (07/20/23) History of coronary artery stent placement (07/20/23) Family History Family History Mother , at 74 from Stroke Diabetes mellitus Acute myocardial infarction Cerebrovascular accident Father , at 54 from Heart Attack Acute myocardial infarction Social History Social History Social History: Surrogate medical decision maker: Ade Sosa, spouse. Code status: Full code. Smoking packs per day: 1.5 Smoking cigarettes per day: 30.0 Years smoked: 20 Smoking pack-years: 30.00 Smoking status: Former smoker Tobacco type: cigarettes Smoking end date: 07/09/00 Alcohol intake: never Alcohol use details: Beer occasionally Substance use: former Substance use type: marijuana Last use: 07/19/23 Spiritual care concerns: No Exam Narrative: GENERAL: Well-appearing, well-nourished, and in no acute distress. HEAD: Normocephalic, atraumatic. ENT: Mucous membranes moist. CHEST: Clear to auscultation. No respiratory distress. HEART: Regular rate and rhythm. Normal peripheral pulses. ABDOMEN: Soft, nontender, nondistended. EXTREMITIES: Normal range of motion. No edema. SKIN: Warm, dry, no rash. NEURO: Alert and oriented x25. PSYCH: Normal mood and affect. Course Course Emergency Course: Discussed case with Dr. Garvey. Patient's labs are reassuring. We will add on a CRP and ESR, we will send additional blood cultures but patient can be discharged home on his oral Bactrim. Discussed this with patient and his . They are comfortable with the plan. Vital Signs Vital signs: Vital Signs Temperature 99.0 F 08/12/23 14:31 Pulse Rate 95 08/12/23 14:31 Respiratory Rate 16 08/12/23 14:31 Blood Pressure 104/67 08/12/23 14:31 Pulse Oximetry 98 08/12/23 14:31 Oxygen Delivery Room Air 08/12/23 14:31 Temperature 99.0 F 08/12/23 14:31 Pulse Rate 78 08/12/23 18:02 Respiratory Rate 12 08/12/23 18:02 Blood Pressure 113/73 08/12/23 18:02 Pulse Oximetry 100 08/12/23 18:02 Oxygen Delivery Room Air 08/12/23 14:31 MDM - Recheck/Abnormal Lab/Rx Lab Data 08/12/23 16:38 08/12/23 16:38 Labs: Lab Results 08/12/23 08/12/23 Range/Units 16:38 17:22 WBC 6.3 (4.5-
[2023-08-12 17:37] LABS: Add Urine Microscopic? YES; Appearance Urine Clear (Clear); Bacteria Urine None Seen /hpf; Bilirubin Urine Negative (Negative); Blood Urine Trace (Negative); Color Urine Yellow (Yellow); Glucose Urine UA Negative (Negative); Ketones Urine Negative (Negative); Leukocyte Esterase Ur Trace LEU/UL (Negative); Nitrate Urine Negative (Negative); Non Pathogenic Casts 0-2; Protein Urine Negative (Negative); RBC Urine 0-2 /hpf (0-2); Specific Grav Ur 1.007 (1.001-1.035); Squamous Epithelial Cell Urine None Seen /hpf (Few); Urobilinogen Urine 0.2 mg/dL (<2.0); WBC Urine 0-5 /hpf (0-3)
[2023-08-12 18:02] VITALS: BP 113/73; PULSE 78; RESP 12; O2SAT 100
[2023-08-12 19:22] VITALS: BP 118/80; PULSE 81; RESP 15; O2SAT 100
[2023-08-12 19:37] LABS: CRP 5.1 mg/dL (<1.0)
[2023-08-12 20:14] LABS: Erythrocyte Sedimentation Rate 65 mm/hr (0-20)
== END 2023-08-12 19:23 | disposition home or self-care (01) ==
PROVIDERS: Emergency Provider Emergency Medicine; PCP Family Medicine
DX: A49.02 Methicillin resistant Staphylococcus aureus infection, unspecified site (principal); R78.81 Bacteremia; I25.10 Atherosclerotic heart disease of native coronary artery without angina pectoris; Z87.891 Personal history of nicotine dependence
CPT/HCPCS: 36415; 80053; 81001; 83605; 85025; 85652; 86140; 99283

== ENCOUNTER 2023-09-08 09:52 | Emergency (ER) | payer OTHER, SELFPAY ==
--- NOTE | ~2023-09-08 | CT_ITS ---
EXAMINATION: CT brain wo con DATE: 09/08/2023 10:29 INDICATION: Head injury TECHNIQUE: Computed tomography (CT) of the head was performed without intravenous contrast. Sagittal and coronal reconstructions were performed. The mA was adjusted according to patient size. Iterative reconstruction technique was employed. The dose-length product was 605.33 mGy-cm. COMPARISON: head CT dated 08/07/2023 FINDINGS: No fracture. No acute intracranial hemorrhage, acute infarction or abnormal extra axial fluid collect ion. Ventricles are normal and symmetric. No mass/mass effect. The orbits, paranasal sinuses and mast oid air cells are normal. IMPRESSION: 1. Normal head CT. No fracture or acute intracranial process. Reviewed, dictated and finalized at location A.
[2023-09-08 10:03] VITALS: BP 129/75; PULSE 82; RESP 17; TEMP 36.8; O2SAT 100
--- NOTE | 2023-09-08 10:29 | ED.FALL ---
HPI - Fall General Chief Complaint: Fall Stated Complaint: Fall, [place] (unknown cause) Time Seen by Provider: 09/08/23 10:02 History of Present Illness HPI Narrative: Patient is a 57-year-old male who presents to the emergency department this morning due to concern for head injury which occurred at home. Did states that she was in the shower and patient was in the basement when he fell so she did not witness the fall. Patient states that he believes he may have tripped on something causing the falls. Denies lightheadedness or dizziness prior to the fall, denies any near syncopal episodes. Patient does not believe he lost any consciousness. No blood thinner use. Patient does have an abrasion to the bridge of the nose and forehead, currently denying any headaches, denies any neck pain and denies any additional injuries or symptoms. Related Data Allergies Allergy/AdvReac Type Severity Reaction Status Date / Time No Known Allergies Allergy Verified 09/08/23 10:05 Review of Systems Review of Systems: All systems are reviewed and are negative unless stated otherwise in the HPI. [facility] Past Medical History Medical History Coronary artery disease Descending thoracic aortic aneurysm 4.[address] taken 07/19/2023 Osteoarthritis of hands, bilateral ST elevation myocardial infarct involv left circumflex coronary artery (07/19/23) Surgical History Surgical History History of cardiac catheterization (07/20/23) History of coronary artery stent placement (07/20/23) Family History Family History Mother , at 74 from Stroke Diabetes mellitus Acute myocardial infarction Cerebrovascular accident Father , at 54 from Heart Attack Acute myocardial infarction Social History Social History Social History: Surrogate medical decision maker: Ade Sosa, spouse. Code status: Full code. Smoking packs per day: 1.5 Smoking cigarettes per day: 30.0 Years smoked: 20 Smoking pack-years: 30.00 Smoking status: Former smoker Tobacco type: cigarettes Smoking end date: 07/09/00 Alcohol intake: never Alcohol use details: Beer occasionally Substance use: former Substance use type: marijuana Last use: 07/19/23 Spiritual care concerns: No Exam Narrative: General: Alert, awake, afebrile, in no acute distress. HEENT: PERRL, no rhinorrhea, no post nasal drip, oropharynx clear, abrasions to the bridge of the nose, mid forehead, no septal hematoma, no active bleeding. Neck: Trachea midline, no JVD, no lymphadenopathy, no midline tenderness to palpation over the cervical spine. Cardiovascular: Regular rate and rhythm, no murmurs, rubs or gallops, no peripheral edema. Respiratory: Clear to auscultation bilaterally, no tachypnea, no wheezing, no rhonchi, no rubs, no respiratory distress. Abdomen: Soft, nontender, nondistended, no rebound, no guarding, no peritoneal signs. Musculoskeletal: No joint swelling or deformity, normal muscle tone. Skin: No rashes or petechia, no signs of infection. Neurological: Alert and oriented to person, place, and time. Follows all commands. 5/5 motor strength in the bilateral upper and lower extremity, sensation intact in bilateral upper and extremity, cranial nerves 2-12 grossly intact, speech is clear and fluent, gait intact and normal. Course Vital Signs Vital signs: Vital Signs Temperature 98.3 F 09/08/23 10:03 Pulse Rate 82 09/08/23 10:03 Respiratory Rate 17 09/08/23 10:03 Blood Pressure 129/75 09/08/23 10:03 Pulse Oximetry 100 09/08/23 10:03 Temperature 98.3 F 09/08/23 10:03 Pulse Rate 82 09/08/23 10:03 Respiratory Rate 17 09/08/23 10:03 Blood Pressure 129/75 09/08/23 10:03 Pulse Oximetry
== END 2023-09-08 11:00 | disposition home or self-care (01) ==
PROVIDERS: Emergency Provider Emergency Medicine; PCP Family Medicine
DX: S00.31XA Abrasion of nose, initial encounter (principal); S00.81XA Abrasion of other part of head, initial encounter; I25.10 Atherosclerotic heart disease of native coronary artery without angina pectoris; I71.20 Thoracic aortic aneurysm, without rupture, unspecified; I25.2 Old myocardial infarction; M19.042 Primary osteoarthritis, left hand; M19.041 Primary osteoarthritis, right hand; Z95.5 Presence of coronary angioplasty implant and graft; Z87.891 Personal history of nicotine dependence; W18.09XA Striking against other object with subsequent fall, initial encounter
CPT/HCPCS: 70450; 99284

== ENCOUNTER 2023-12-19 07:43 | Outpatient (CLI) | payer OTHER, SELFPAY ==
--- NOTE | ~2023-12-19 | CT_ITS ---
CT Scan of the Chest without Contrast: Clinical Indication: Thoracic aortic aneurysm Technique: Contiguous sections were acquired throughout the chest without intravenous contrast. Dose reduction technique was used on this scan by utilizing automated exposure control and iterative recon struction technique. The dose-length product (DLP) was 267.08 mGy-cm. COMPARISON: 07/19/2023 Findings: There is no evidence of any significant mediastinal, hilar or axillary lymphadenopathy. Ascending aor ta measures 4.5 cm in diameter. Coronary artery calcifications are present. There is no evidence of pleural or pericardial effusion. 3 mm right upper lobe pulmonary nodule present (axial image 54). 3 mm lingular nodule noted periphera lly (axial image 97). 3 mm pleural-based left lower lobe pulmonary nodule present (axial image 111). Images through the upper abdomen reveal no abnormalities. Impression: Ascending aorta measures 4.5 cm in diameter. Subcentimeter pulmonary nodules, as above, probably unchanged. Reviewed, dictated and finalized at [facility]. Impression: Ascending aorta measures 4.5 cm in diameter. Subcentimeter pulmonary nodules, as above, probably unchanged.
== END 2023-12-19 07:44 | disposition home or self-care (01) ==
LOC: ANHIMG 07:44
PROVIDERS: PCP Family Medicine; Visit Provider Nurse Practitioner Adult Health
DX: I71.20 Thoracic aortic aneurysm, without rupture, unspecified (principal); R91.8 Other nonspecific abnormal finding of lung field
CPT/HCPCS: 71250

== ENCOUNTER 2024-02-27 08:45 | Outpatient (RCR) | payer OTHER, SELFPAY ==
[2023-11-05 11:53] VITALS: PULSE 56
== END 2024-02-27 16:49 | disposition home or self-care (01) ==
LOC: ANHCPREHAB 08:45
PROVIDERS: PCP Family Medicine; Visit Provider Specialist
DX: Z95.5 Presence of coronary angioplasty implant and graft (principal)
CPT/HCPCS: 93798

== ENCOUNTER 2024-05-19 09:36 | Outpatient (CLI) | payer OTHER, SELFPAY ==
--- NOTE | ~2024-05-19 | CT_ITS ---
CT Scan of the Chest without Contrast: Clinical Indication: Thoracic aortic aneurysm Technique: Contiguous sections were acquired throughout the chest without intravenous contrast. Dose reduction technique was used on this scan by utilizing automated exposure control and iterative recon struction technique. The dose-length product (DLP) was 256.72 mGy-cm. COMPARISON: 12/19/2023 Findings: There is no evidence of any significant mediastinal, hilar or axillary lymphadenopathy. Coronary milvia ry calcifications present. Ascending aorta measures 4.6 cm in diameter. There is no evidence of pleural or pericardial effusion. There are extensive centrilobular groundglass nodules in the right upper lobe, compatible with infect ious process. Images through the upper abdomen reveal no abnormalities. Impression: Extensive centrilobular groundglass nodules in the right upper lobe, compatible with small airways in fectious process. 4.6 cm ascending aortic aneurysm. Reviewed, dictated and finalized at [facility]. Impression: Extensive centrilobular groundglass nodules in the right upper lobe, compatible with small airways infectious process. 4.6 cm ascending aortic aneurysm.
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
--- OUTSIDE RECORDS SUMMARY | 2024-05-19 10:34 | XMS_ITS | Continuity of Care Document ---
Author Organization [facility] Address [address] [place] [address] Phone Care Team Providers Care Lead Housekeeper Name Role Phone Soledad Mccormack MD Unavailable Unavailable Advance Directives Directive Yes / No Effective Date File Name No Information Encounters Encounter Description Practice Location Reason(s) For Visit Diagnoses Date Provider Providers Copied on Encounter [facility], [address], [place], [place], [id number], [place] tel:[phone] [facility] No Information Easton Rowe. [address] [place] [address], [id number], [place]. tel:[phone] Family History Family Member Type Diagnosis Age At Onset No Information Payers Payer name Insurance type Covered green party ID Authoriza tion(s) [facility] [id number] Social History Type Description Quantity Date Captured Comments Sex Male Smoking Status No Information Sexual Orientation Straight or heterosexual Gender Identity Male Chief Complaint And Reason For Visit No Information Reason For Referral Reason For Referral No Information History Of Present Illness Encounter Date Complaint History Of Prese nt Illness No Information Functional Status Date Functional Assessmen t No Information Instructions Date Instruction Additional Infor mation No Information Assessments Type Assessment Date No Information Patient Care Teams Name Effective Dates (start - stop) Status Members No Information
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
--- OUTSIDE RECORDS SUMMARY | 2024-05-19 10:34 | XMS_ITS | Clinical Summary ---
Author Organization [facility] Address [address] [place] [id number] Care Team Providers Care Airline Hostess Name Role Phone None, Provider MD Primary Care Provider Unavaila ble Allergies No known active allergies Medications metoprolol succinate ER (TOPROL-XL) 25 MG 24 hr tablet Take 1 tablet by mouth in the evening 90 tablet 05/20/2023 Active Active Problems Problem Noted Date Diagnosed Date Palpitations 01/29/2023 Dizzinesses 01/29/2023 Family History Medical History Relation Comments AL Father Heart Attack Mother Stroke Mother Relation Status Comments Father Mother Social History Tobacco Use Types Packs/Day Years Used Date Smoking Tobacco: Former Cigarettes Q uit: 2004 Smokeless Tobacco: Never Tobacco Cessation:Counseling Given: Not Answered Alcohol Use Standard Drinks/Week Comments Not Currently 0 (1 standard drink = 0.6 oz pur e alcohol) Sex and Gender Information Value Date Recorded Sex Assigned at Not on file Legal Sex Male 8:19 AM CDT Gender Identity Not on file Sexual Orientation Not on file Last Filed Vital Signs Vital Sign Reading Time Taken Comments Blood Pressure 142/90 01/30/2023 12:47 PM UNDER CUTTER Pulse 70 01/30/2023 12:47 PM UNDER CUTTER Temperature 36.9 C (98.5 F) 12/08/2022 8:23 AM CDT Respiratory Rate 19 12/08/2022 11:30 AM CDT Oxygen Saturation 98% 01/30/2023 12:47 PM UNDER CUTTER Inhaled Oxygen Concentration - - Weight 90.3 kg (199 lb) 01/30/2023 12:47 PM UNDER CUTTER Height 190.5 cm (6' 3 ) 01/30/2023 12:47 PM UNDER CUTTER Body Mass Index 24.87 01/30/2023 12:47 PM UNDER CUTTER Plan of Treatment Health Maintenance Due Date Last Done Comments Colorectal Cancer Screening Colonoscopy (10 Years) 1965 Annual Physical 11/05/1966 Hepatitis C 11/05/1981 DTaP, Tdap and Td Vaccines (1 - Tdap) 11/05/1982 Zoster Vaccines (1 of 2) 11/05/2013 COVID-19 Vaccine (4 - season) 2023 01/28/2021, 06/26/2020, 06/05/2020 Influenza Adult (#1) 2023 01/28/2021, 12/27/2019, 02/01/2019, Additional history exists RSV Immunization or 60+ Years (1 - 1-dose 75+ series) 11/05/2038 Meningococcal B Vaccine Aged Out No l onger eligible based on patient's age to complete this topic Meningococcal Vaccine Aged Out No bassam jessica eligible based on patient's age to complete this topic Pneumococcal Vaccine: Pediatrics (0 to 5 Years) and At-Risk Patients (6 to 64 Years) Aged Out No longer eligible based on patient's age to complete this topic RSV Immunizations Under 20 Months Aged Out No longer eligible based on patient's age to complete this topic Care Teams Airline Hostess Relationship Specialty Start Date End Date None, Provider, PCP - General UNKNOWN PHYSICIAN SPECIALTY 12/08/22
--- OUTSIDE RECORDS SUMMARY | 2024-05-19 10:34 | XMS_ITS | Patient Health Record ---
Author Organization [facility] [employer] Address [address] [facility] [address] [place] [address] Care Team Providers Care Package Wrapper Name Role Phone Jennifer Garvey MD Primary Care Provider Angela Karimi Unavailable [phone] Patricia Santiago Unavailable [phone] Allergies No Known Allergies Reason For Referral No Information Medications Medication SIG (Take, Route, Frequency, Duration) Notes Start Date End Date Status QUEtiapine Fumarate 50 MG 1 tablet at bedtime Oral Once a day for 90 days daily dose: 25mg qam and q afternoon; 50mg qhs Active QUEtiapine Fumarate 100 MG 1 tablet at bedtime Oral Once a day for 30 days 02/20/2024 Active Metoprolol Succinate ER 25 MG TAKE 1 TABLET BY MOUTH ONCE DAILY Oral for 90 Days Active Losartan Potassium 25 MG TAKE 1 TABLET BY MOUTH ONCE DAILY Oral for 90 Days Active Aspirin Low Dose 81 MG CHEW AND SWALLOW 1 TABLET BY MOUTH ONCE DAILY FOR 30 DAYS Oral for 30 Days Not-Taking Brilinta 90 MG Oral for 90 Days Active Aspirin Low Dose 81 MG Oral for 30 Days Not-Taking EQ Aspirin Low Dose 81 MG CHEW AND SWALLOW 1 TABLET BY MOUTH ONCE DAILY Oral for 90 Days Active Cephalexin 500 MG Oral for 3 Days Not-Taking Rosuvastatin Calcium 20 MG TAKE 1 TABLET BY MOUTH ONCE DAILY Oral for 30 Days Active Sulfamethoxazole-Trim ethoprim 800-160 MG Oral for 7 Days Not-T aking Memantine HCl 5 MG 1 tablet Orally Once a day Active Sulfamethoxazole-Trim ethoprim 800-160 MG TAKE 1 TABLET BY MOUTH TWICE DAILY Oral for 7 Days Not-Taking FLUoxetine HCl 10 MG 1 capsule Oral Once a day for 90 days Active QUEtiapine Fumarate 25 MG 1 tablet q am and 1 tablet q afternoon Oral twice a day for 90 days Active Divalproex Sodium 250 MG 1 tablet Oral Twice a day for 90 days Active Social History Tobacco Use: Social History Observation Description Date Details (start date - stop date) Never Smoker NA - 10/15/2005 Sex Assigned At : Social History Observation Description Sex Assigned At Male Tobacco Control (Standard) Question Answer Notes Tobacco use: Nonsmoker When did you stop smoking? 10/15/2005 How long has it been since you last smoked? Grea ter than 10 years AUDIT-C (Standard) Question [...] Never (0 point) Section Notes: Lives in [place] with w monica of 34 yrs. Grew up local, 5 siblings. Education/employment: high school grad. hasn't worked since July/heart attack. 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 Lives in [place] with w monica of 34 yrs. Grew up local, 5 siblings. Education/employment: high school grad. hasn't worked since July/heart attack. 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 Lives in [place] with w mnoica of 34 yrs. Grew up local, 5 siblings. Education/employment: high school grad. hasn't worked since July/heart attack. 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) Active confirmed Vital Signs Heart Rate 88 /min 05/08/2024 Height-cm 190.5 cm 05/08/2024 Blood pressure diastolic 77 mm Hg 05/08/2024 Weight-kg 100.7 kg 05/08/2024 Height 75 in 05/08/2024 Blood pressure systolic 110 mm Hg 05/08/2024 Weight 222 lbs 05/08/2024 BMI 27.75 kg/m2 05/08/2024 Encounters Encounter Location Date Provider Diagnosis [facility] [address] [address] 10/25/2023 Patricia Santiago 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 and History of anoxic brain injury Z86.69 [facility] [address] [facility] [address] [address] 11/22/2023 Patricia Chaneydenisambreen 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 and History of anoxic brain injury Z86.69 [facility] [address] [facility] [address] [address] 01/08/2024 Patricia Pamela [facility] [address] [facility] [address] [address] 03/09/2024 Angela Landaverde 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 and Memory deficit following cerebral infarction I69.[address] [address] 05/08/2024 Angela Hagopian Memory deficit following cerebral infarction I69.311 and 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 [address] 10/24/2023 Patricia Harmanramonehelga [address] [address] 02/20/2024 Angela Landaverde 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 Assessments Encounter Date Diagnosis (ICD Code) Assessment Notes Treatment Notes Treatment Clinical Notes Section Notes 10/25/2023 Agitation due to dementia (ICD-10 - F03.911) increase bedtime quetiapine to 50mg qhs x 1 wk, then 100mg qhs cont quetiapine 25mg qam and 1 afternoon cont depakote 250mg BID cont fluoxetine 10mg daily Electronic Prior Authorization was requested for QUEtiapine Fumarate 100 MG Tablet. anoxic brain injury in July with subsequent memory loss. Still in rehab process, retraining speech, memory, etc. some anxiety, panic; sleep, agitation and aggression that seems improving with meds. possible psychosis, or may be memory function/dreams, etc unclear. Cannabis daily, is likely not helping cognition. discuss med options, shared decision to increase nighttime quetiapine, and cont depakote and fluoxetine. Review r/b/se of meds, incl warning on antipsychotics with dementia [facility] for records [facility] 09/2023 f/u in 1 month, earlier if concerns consult Dr Story after appt: would consider it dementia with behavioral disturbance d/t anoxic brain damage complication. give 3-6 months after anoxic vascular, can still have further improvement, and memory may stay stable after if no other events. As can improve, recommend wait another 3 months (6 months total) before consider donepezil/namenda etc. Agreed with increase hs seroquel, if continued aggression consider increase depakote. Has no specific neuropsychiatrist to recommend locally, other than whomever they were referred to already. Or if issues getting in, just general neuro local 02/20/2024 Agitation due to dementia (ICD-10 - F03.911) 03/09/2024 Memory deficit following cerebral infarction (ICD-10 - I69.311) Assessment and Plan: Agitation/ Behavioral Disturbances - stable, no concerns Plan: - Continue quetiapine 25 mg bid and 50 mg at bedtime - continue fluoxetine 10 mg daily - continue depakote 250 mg bid - Monitor for changes in behavior Memory deficits - reports short and long-term impairment Plan: - continue memantine from neurologist - Encourage prompts for daily activities and eating Follow-up in 2 months, sooner if concerns arise 03/09/2024 Agitation due to dementia (ICD-10 - [...] behavior Memory deficits - reports short and long-term impairment Plan: - continue memantine from neurologist - Encourage prompts for daily activities and eating Follow-up in 2 months, sooner if concerns arise 05/08/2024 Memory deficit following cerebral infarction (ICD-10 - I69.311) Agitation/ Behavioral Disturbances - stable, no concerns - is happy with medications as is Plan: - Continue quetiapine 25 mg bid and 50 mg at bedtime - continue fluoxetine 10 mg daily - continue depakote 250 mg bid - Monitor for changes in behavior Memory deficits - reports short and rat exterminator impairment; no changes Plan: - continue memantine from neurologist - Encourage prompts for daily activities and eating Follow-up in 3 months, sooner if concerns arise 10/25/2023 History of anoxic brain injury (ICD-10 - Z86.69) f/u with neuro/rehab 11/22/2023 Agitation due to dementia (ICD-10 - F03.911) cont quetiapine 100mg qhs cont quetiapine 25mg qam and q afternoon cont depakote 250mg BID cont fluoxetine 10mg daily dementia with behavioral disturbance anoxic brain damage complication. anoxic brain injury in July with subsequent memory loss. Still in rehab process, retraining speech, memory, etc. -having improvement with increase medication and time. -shared decision to cont meds as is, if things improve over time, might pull back #/dose, review r/b/se -and just saw neuro who started namenda this week -f/u with neuro as planned -keep brain active, healhty diet and physical activity etc under direction cardiology/neurolog y -allow time to see how much brain heals f/u in 2-3 months, earlier if concerns 11/22/2023 History of anoxic brain injury (ICD-10 - Z86.69) f/u with neuro/rehab 05/08/2024 Agitation due to dementia (ICD-10 - F03.911) Agitation/ Behavioral Disturbances - stable, no concerns - is happy with medications as is Plan: - Continue quetiapine 25 mg bid and 50 mg at bedtime - continue fluoxetine 10 mg daily - continue depakote 250 mg bid - Monitor for changes in behavior Memory deficits - reports short and rat exterminator impairment; no changes Plan: - continue memantine from neurologist - Encourage prompts for daily activities and eating Follow-up in 3 months, sooner if concerns arise 03/09/2024 Other Learning About Depression Screening material was printed Assessment and Plan: Agitation/ Behavioral Disturbances - stable, no concerns Plan: - Continue quetiapine 25 mg bid and 50 mg at bedtime - continue fluoxetine 10 mg daily - continue depakote 250 mg bid - Monitor for changes in behavior Memory deficits - reports short and long-term impairment Plan: - continue memantine from neurologist - Encourage prompts for daily activities and eating Follow-up in 2 months, sooner if concerns arise Plan Of Treatment Next Appt Details Provider Name:Angela hopper, 08/05/2024 11:00:00 AM, [address], [address], [place], [address], Insurance Providers Payer Name Payer Address Payer Phone Subscriber Number Group Number Insured Name Patient Relationship to Insured Coverage Start Date Coverage End Date Umr [address] [address] [place] [address] [phone] [id number] Andrews Sosa Self - patient is the insured Medical (General) History Medical History History ICD Code Anoxic brain damage, not elsewhere class ified G93.1 Cardiac arrest, cause unspecified I46.9 Surgical History Surgery Date(Month/Year) heart stent 07/2023 Hospitalization History Reason Date(Month/Year) cardiac arrest 07/2023
--- OUTSIDE RECORDS SUMMARY | 2024-05-19 10:34 | XMS_ITS ---
Author Organization [facility] [employer] [facility] Address [facility] [address] [address] Care Team Providers Care Mill Supervisor Name Role Phone Jennifer Garvey MD Primary Care Provider Angela Karimi Unavailable [phone] REASON FOR VISIT Refill Medications Medication SIG (Take, Route, Frequency, Duration) Notes Start Date End Date Status QUEtiapine Fumarate 100 MG 1 tablet at b edtime Oral Once a day for 30 days 02/20/2024 Active Social History Sex Assigned At : Social History Observation Description Sex Assigned At Male Problems Problem Type SNOMED Code ICD Code Onset Dates Problem Status W/U Status Risk Notes Problem Agitation due to dementia (033700703) 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) Active confirmed Encounters Encounter Location Date Provider Diagnosis [address] [address] 02/20/2024 Angela Landaverde 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 Assessments Encounter Date Diagnosis (ICD Code) Assessment Notes Treatment Notes Treatment Clinical Notes Section Notes 02/20/2024 Agitation due to dementia (ICD-10 - F03.911) Plan Of Treatment Medication Medication Name Sig Start Date Stop Date Notes QUEtiapine Fumarate 100 MG 1 tablet at b edtime Oral Once a day for 30 days 02/20/2024 Next Appt Details Provider Name:Angela hopper, 08/05/2024 11:00:00 AM, [address] [facility] [address], [facility] [address], [address], Progress Notes * Andrews SOSADOB:1965 (58 yo M)Acc No.[id number]:02/20/2024 Patient: Johny FLORES Andrews :1965 A ge:58 Y S ex:Male Phone: Address:[address] [place] [address], [address] * Refills Start QUEtiapine Fumarate Tablet, 100 MG, Oral, 30 Tablet, 1 tablet at bedtime, Once a day, 30 days, Refills=0 Subjective: * Chief Complaints: * R efill * Medical History: * Surgical History: * Hospitalization/Major Diagno stic Procedure: * Medications: Objective: * Vitals: * Physical Examination: Assessment: * Assessment: 1. A gitation due to dementia - F03.911 (Primary) Plan: * Treatment: * Procedure Codes: * true * Date: Generated for Solitario iraheta/Anamaria/Rickysmitting on: 0 05/19/2024 10:33 AM CDT
== END 2024-05-19 09:37 | disposition home or self-care (01) ==
PROVIDERS: PCP Family Medicine; Visit Provider Nurse Practitioner Adult Health
DX: I71.21 Aneurysm of the ascending aorta, without rupture (principal); R91.8 Other nonspecific abnormal finding of lung field
CPT/HCPCS: 71250

== ENCOUNTER 2024-05-27 01:02 | Day surgery (SDC) | payer OTHER, SELFPAY ==
[2024-05-20 09:13] VITALS: BMI 27.5
--- NOTE | 2024-05-20 09:43 | PC.NURSE ---
Spoke with patient's spouse, Ade, regarding medication Brilinta. Ade verbalizes understanding that the last dose is to be taken on 05/22/2024 and the Endoscopist will instruct them when to restart after the procedure.
--- OUTSIDE RECORDS SUMMARY | 2024-05-27 01:05 | XMS_ITS | Clinical Summary ---
Author Organization [facility] Address [address] [place] [address] Care Team Providers Care Director Payer Name Role Phone None, Provider MD Primary Care Provider Unavaila ble Allergies No known active allergies Medications metoprolol succinate ER (TOPROL-XL) 25 MG 24 hr tablet Take 1 tablet by mouth in the evening 90 tablet 05/20/2023 Active Active Problems Problem Noted Date Diagnosed Date Palpitations 01/29/2023 Dizzinesses 01/29/2023 Family History Medical History Relation Comments [place] Father Heart Attack Mother Stroke Mother Relation [...] Comments Blood Pressure 142/90 01/30/2023 12:47 PM HEADSTART TEACHER Pulse 70 01/30/2023 12:47 PM HEADSTART TEACHER Temperature 36.9 C (98.5 F) 12/08/2022 8:23 AM CDT Respiratory Rate 19 12/08/2022 11:30 AM CDT Oxygen Saturation 98% 01/30/2023 12:47 PM HEADSTART TEACHER Inhaled Oxygen Concentration - - Weight 90.3 kg (199 lb) 01/30/2023 12:47 PM HEADSTART TEACHER Height 190.5 cm (6' 3 ) 01/30/2023 12:47 PM HEADSTART TEACHER Body Mass Index 24.87 01/30/2023 12:47 PM HEADSTART TEACHER Plan of Treatment Health Maintenance Due Date [...] age to complete this topic Care Teams Director Payer Relationship Specialty Start Date End Date None, Provider, PCP - General UNKNOWN PHYSICIAN SPECIALTY 12/08/22
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
--- OUTSIDE RECORDS SUMMARY | 2024-05-27 01:05 | XMS_ITS ---
Author Organization [facility] Address [address] [facility] [address] [place] [address] Care Team Providers Care Sample Mounter Name Role Phone Jennifer Garvey MD Primary Care Provider Angela Karimi Unavailable [phone] Allergies No Known Allergies REASON FOR VISIT [...] Never (0 point) Section Notes: Lives in [place] with w monica of 34 yrs. Grew up local, 5 siblings. Education/employment: high school grad. hasn't worked since July/heart attack. 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 Vital Signs Blood pressure systolic 110 mm Hg 05/08/19 25 Blood pressure diastolic 77 mm Hg 025 Heart Rate 88 /min 05/08/2024 Height 75 in 05/08/2024 Weight 222 lbs 05/08/2024 BMI 27.75 kg/m2 05/08/2024 Height-cm 190.5 cm 05/08/2024 Weight-kg 100.7 kg 05/08/2024 Encounters Encounter Location Date Provider Diagnosis [facility] [employer] [facility] [address] [address] 05/08/2024 Angela Landaverde Memory deficit following cerebral [...] behavior Memory deficits - reports short and alf impairment; no changes Plan: - continue memantine [...] behavior Memory deficits - reports short and termite treater helper impairment; no changes Plan: - continue memantine [...] Reason: Provider Name:Angela hopper, 08/05/2024 11:00:00 AM, [address] [facility] [address] [facility], [address], [address], Progress Notes * Andrews SOSADOB:1965 (58 yo M)Acc No.[id number]:05/08/2024 Patient: Andrews HANDY Provider: Shayy Landaverde :1965 A ge:58 Y S ex:Male Date:05/08/2024 Phone: Address:[address] [place], [place] [id number] Pcp:Jennifer Garvey MD Subjective: * Chief Complaints: [...] no concerns. Short term memory issues, some termite treater helper. ongoing notes: May anoxic injury, [facility] nurse, [facility], [...] Household: 0 L evel of Education: F [employer] L jenny in [place] with of 34 yrs. Grew up local, 5 siblings. Education/employment: high school grad. hasn't worked since July/heart attack. 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 * Medications: T akingMemantine [...] dose: 25mg qam and q afternoon; 50mg todOhj-QsjfdhJecxvadodfjixzcz-Bodqodinpiti 800-160 MG Tablet TAKE 1 TABLET BY [...] behavior Memory deficits - reports short and termite treater helper impairment; no changes Plan: - continue memantine from neurologist - Encourage prompts for daily activities and eating Follow-up in 3 months, sooner if concerns arise Plan: * Treatment: * Procedure Codes: 9 6127 BEHAV ASSMT W/SCORE & DOCD/STAND [id number] NORMAL BP READING DOC F/U NOT [id number] VISIT COMPLEXITY INHERENT TO ONGOING CARE RELATED TO A PATIENT'S SINGLE, SERIOUS CONDITION OR A COMPLEX [id number] MOST RECENT SYSTOLIC BP < 140MM [id number] MOST RECENT DIASTOLIC BP < 90MM HG [...] Months * Billing Information: * Visit Code: 77078 OFFICE OUTPATIENT VISIT 25 MINUTES DETAILED HISTORY AND EXAM/MODERATE MEDICAL DECISION MAKING. Modifiers: SA * Procedure Codes: 14343 BEHAV ASSMT W/SCORE & DOCD/STAND INSTRUMENT. G8783 NORMAL BP READING DOC F/U NOT RQR. G2211 VISIT COMPLEXITY INHERENT TO ONGOING CARE RELATED TO A PATIENT'S SINGLE, SERIOUS CONDITION OR A COMPLEX CONDITION. G8752 MOST RECENT SYSTOLIC BP < 140MM HG. G8754 MOST RECENT DIASTOLIC BP < 90MM HG. * ESSIONAL ENGINEER Electronically co-signed by Roman Story MD on 05/08/2024 at 08:45 PM PROFESSIONAL ENGINEER Sign off status: Completed true * Provider: Shayy Landaverde Date: 0 05/08/2024 Generated for Solitario iraheta/Anamaria/eTransmitting on: 0 05/27/2024 01:05 AM CDT History [...] Total: (0 to 4) No Anx iety Langlois-Suicide Severity Rating Scale Suicide Risk (CSRS-screener) in [...]
--- OUTSIDE RECORDS SUMMARY | 2024-05-27 01:05 | XMS_ITS | Continuity of Care Document ---
Author Organization [employer] Address [address] [place] [address] Phone Care Team Providers Care Business Team Leader Name Role Phone Soledad Mccormack MD Unavailable Unavailable Advance Directives Directive Yes / No Effective Date File Name No Information Encounters Encounter Description Practice Location Reason(s) For Visit Diagnoses Date Provider Providers Copied on Encounter [facility], [address], [place], [place], [id number], [place] tel:[phone] [facility] No Information Easton Rowe. [address] [place] [address], [id number], [place]. tel:[phone] Family History Family Member Type Diagnosis Age At Onset No Information Payers Payer name Insurance type Covered alliance party ID Authoriza tion(s) [facility] [id number] Social History Type Description Quantity Date Captured [...]
--- OUTSIDE RECORDS SUMMARY | 2024-05-27 01:05 | XMS_ITS | Patient Health Record ---
Author Organization [facility] Address [address] [facility] [address] [place] [address] Care Team Providers Care Overhead Cleaner Maintainer Name Role Phone Jennifer Garvey MD Primary Care Provider Angela Karimi Unavailable [phone] Patricia Santiago Unavailable [phone] Allergies No Known Allergies Reason For Referral [...] Never (0 point) Section Notes: Lives in [place] with w monica of 34 yrs. Grew up local, 5 siblings. Education/employment: high school grad. hasn't worked since July/heart attack. 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 Lives in [place] with w monica of 34 yrs. Grew up local, 5 siblings. Education/employment: high school grad. hasn't worked since July/heart attack. 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 Lives in [place] with w monica of 34 yrs. Grew up local, 5 siblings. Education/employment: high school grad. hasn't worked since July/heart attack. 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 [address] [address] 10/25/2023 Patricia Santiago 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 and History of anoxic brain injury Z86.69 [facility] [address] [facility] [address] [address] 11/22/2023 Patricia Santiago 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 and History of anoxic brain injury Z86.69 [place] [address] [facility] [address] [address] 01/08/2024 Patricia Harmanadrian [facility] [address] [facility] [address] [address] 03/09/2024 Angela Landavrede 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 and Memory deficit following cerebral infarction I69.[address] [address] 05/08/2024 Angela Hagopian Memory deficit following cerebral infarction I69.311 and 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 [address] 10/24/2023 Patricia Chaneyxiomarahelga [address] [address] 02/20/2024 Anglea Landaverde 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 Assessments Encounter Date Diagnosis (ICD Code) Assessment Notes Treatment Notes Treatment Clinical Notes Section Notes 02/20/2024 Agitation due to dementia (ICD-10 - F03.911) 10/25/2023 Agitation due to dementia (ICD-10 - [...] on antipsychotics with dementia FAWAD for records [place] psych hospitalization 09/2023 f/u in 1 month, [...] issues getting in, just general neuro local 10/25/2023 History of anoxic brain injury (ICD-10 [...] f/u in 2-3 months, earlier if concerns 03/09/2024 Memory deficit following cerebral infarction (ICD-10 - I69.311) Assessment and Plan: Agitation/ Behavioral Disturbances - stable, no concerns Plan: - Continue quetiapine 25 mg bid and 50 mg at bedtime - continue fluoxetine 10 mg daily - continue depakote 250 mg bid - Monitor for changes in behavior Memory deficits - reports short and halfway impairment Plan: - continue memantine from neurologist [...] behavior Memory deficits - reports short and halfway impairment Plan: - continue memantine from neurologist [...] behavior Memory deficits - reports short and halfway impairment; no changes Plan: - continue memantine [...] behavior Memory deficits - reports short and halfway impairment; no changes Plan: - continue memantine from neurologist - Encourage prompts for daily activities and eating Follow-up in 3 months, sooner if concerns arise 11/22/2023 History of anoxic brain injury (ICD-10 - Z86.69) f/u with neuro/rehab 03/09/2024 Other Learning About Depression Screening material was printed Assessment and Plan: Agitation/ Behavioral Disturbances - stable, no concerns Plan: - Continue quetiapine 25 mg bid and 50 mg at bedtime - continue fluoxetine 10 mg daily - continue depakote 250 mg bid - Monitor for changes in behavior Memory deficits - reports short and halfway impairment Plan: - continue memantine from neurologist - Encourage prompts for daily activities and eating Follow-up in 2 months, sooner if concerns arise Plan Of Treatment Next Appt Details Provider Name:Angela hopper, 08/05/2024 11:00:00 AM, [address], [address], [place], [address], Insurance Providers Payer Name Payer Address Payer Phone Subscriber Number Group Number Insured Name Patient Relationship to Insured Coverage Start Date Coverage End Date [employer] [address] [address] [place] [address] [phone] [id number] Andrews Sosa Self - patient is the insured Medical (General) History Medical History History ICD Code Anoxic brain damage, not elsewhere class ified G93.1 Cardiac arrest, cause unspecified I46.9 Surgical History Surgery Date(Month/Year) heart stent 07/2023 Hospitalization History Reason Date(Month/Year) cardiac arrest 07/2023
[2024-05-27 11:42] VITALS: BP 122/97; PULSE 67; RESP 18; TEMP 36.3; O2SAT 99
[2024-05-27] MEDS: LACTATED RINGERS 1,000 ML 150 ML IV CONT (11:43)
--- NOTE | 2024-05-27 13:10 | PM.HPGS ---
History of Present Illness History of Present Illness Consent: Risks, benefits, and alternatives have been discussed and questions answered. Patient agrees to proceed with procedure. Chief complaint: blood in stool Narrative: Andrews Sosa is a 58 year old male here with blood in stool, last colonoscopy more than 10 years ago Review of Systems Review of Systems: All systems reviewed & are unremarkable except as noted in HPI and below PMFSH Past Medical History Medical History (Updated 05/27/24 @ 13:11 by Stepan Jack MD) Blood in stool Cervical cord myelomalacia Dementia Coronary artery disease ST elevation myocardial infarct involv left circumflex coronary artery (07/19/23) Descending thoracic aortic aneurysm 4.[address] taken 07/19/2023 Osteoarthritis of hands, bilateral Surgical History Surgical History History of coronary artery stent placement (07/20/23) History of cardiac catheterization (07/20/23) Family History Family History Mother , at 74 from Stroke Diabetes mellitus Acute myocardial infarction Cerebrovascular accident High cholesterol Hypertension Father , at 54 from Heart Attack Acute myocardial infarction Sibling High cholesterol Hypertension Social History Social History Social History: Surrogate medical decision maker: Ade Sosa, spouse. Code status: Full code. Smoking packs per day: 1 Smoking cigarettes per day: 20.0 Years smoked: 27 Smoking pack-years: 27.00 Smoking status: Former smoker Tobacco type: cigarettes Smoking end date: 07/09/00 Alcohol intake: never Alcohol use details: Beer occasionally Substance use: former Substance use type: marijuana Other substance usage details: 1-2x week Last use: 07/19/23 Living arrangements: with family Spiritual care concerns: No Meds Home Medications and Allergies Home Medications ?Medication ?Instructions ?Recorded ?Confirmed ?Type aspirin 81 mg chewable tablet 81 mg PO DAILY 30 days #30 tabs 08/09/23 05/27/24 Rx losartan 25 mg tablet 25 mg PO DAILY 30 days #30 tabs 08/09/23 05/27/24 Rx metoprolol succinate 25 mg 25 mg PO QHS 30 days #30 tabs 08/09/23 05/27/24 Rx tablet,extended release 24 hr nitroglycerin 0.4 mg sublingual 0.4 mg sublingual Q5-15M PRN chest 08/09/23 05/20/24 Rx tablet pain #10 tabs ticagrelor 90 mg tablet (Brilinta) 90 mg PO Q12H 30 days #60 tabs 08/09/23 05/27/24 Rx divalproex 250 mg tablet,delayed 250 mg PO Q12H #14 tabs 10/07/23 05/27/24 Rx release fluoxetine 10 mg capsule 10 mg PO DAILY #30 caps 11/17/23 05/27/24 Rx memantine 5 mg-10 mg tablets in a See Rx Instructions PO PER PKG DIR 12/17/23 05/27/24 Rx dose pack (Namenda Titration Jordan) #60 ea quetiapine 100 mg tablet 50 mg PO HS 12/24/23 05/27/24 History quetiapine 25 mg tablet (Seroquel) 25 mg PO BID #21 tabs 12/24/23 05/27/24 Rx rosuvastatin 10 mg tablet 40 mg PO DAILY 05/20/24 05/27/24 History Allergies Allergy/AdvReac Type Severity Reaction Status Date / Time No Known Allergies Allergy Verified 05/27/24 11:40 Vital Signs Vital Signs - 24 hr 05/27/24 11:42 Temperature 97.3 F L Pulse Rate 67 Respiratory Rate 18 Blood Pressure 122/97 H Pulse Oximetry 99 Oxygen Delivery Room Air Exam Const: General: comfortable and no acute distress HENMT: Face/Nose/Sinus: Normal nares present Eyes: General: appearance normal, both eyes and all related structures Neck: Neck: no JVD Resp: Auscultation: clear to auscultation bilaterally Cardio: Rate: regular rate Rhythm: regular rhythm GI: Inspection: non-distended GI Palp: Yes Soft to palpation Skin: General skin exam: normal color Neuro: General: gait normal Speech: normal speech Extrem: General: normal to inspection Psych: Mental Status: mental status grossly normal Assessment and Plan Assessment and plan (1) Blood in stool: Code(s): K92.1 - Melena Status: Acute Assessment and Plan: colonoscopy
[2024-05-27 13:24] VITALS: BP 108/62; PULSE 68; RESP 20; O2SAT 97
[2024-05-27 13:34] VITALS: BP 107/73; PULSE 61; RESP 20; O2SAT 98
[2024-05-27 13:44] VITALS: BP 119/49; PULSE 65; RESP 18; O2SAT 98
== END 2024-05-27 14:00 | disposition home or self-care (01) ==
PROVIDERS: PCP Family Medicine; Referring Provider Student in an Organized Health Care Education/Training Program; Visit Provider Internal Medicine Gastroenterology
PROC: 0DJD8ZZ Inspection of Lower Intestinal Tract, Via Natural or Artificial Opening Endoscopic (ICD-10-PCS; CPT 45378; principal; 2024-05-27 12:30)
DX: D12.5 Benign neoplasm of sigmoid colon (principal); K64.8 Other hemorrhoids; K57.30 Diverticulosis of large intestine without perforation or abscess without bleeding; G95.89 Other specified diseases of spinal cord; F03.90 Unspecified dementia, unspecified severity, without behavioral disturbance, psychotic disturbance, mood disturbance, and anxiety; I25.10 Atherosclerotic heart disease of native coronary artery without angina pectoris; I25.2 Old myocardial infarction; M19.042 Primary osteoarthritis, left hand; M19.041 Primary osteoarthritis, right hand; F12.90 Cannabis use, unspecified, uncomplicated; Z79.82 Long term (current) use of aspirin; Z79.02 Long term (current) use of antithrombotics/antiplatelets; Z98.890 Other specified postprocedural states; Z95.5 Presence of coronary angioplasty implant and graft; Z87.891 Personal history of nicotine dependence; Z86.79 Personal history of other diseases of the circulatory system; Z82.49 Family history of ischemic heart disease and other diseases of the circulatory system
CPT/HCPCS: 45380; 88305; J2003; J2704; J7120

== ENCOUNTER 2024-09-08 08:12 | Outpatient (CLI) | payer OTHER, SELFPAY ==
--- OUTSIDE RECORDS SUMMARY | 2024-09-08 08:16 | XMS_ITS | Patient Health Record ---
Author Organization [facility] Address [address] [facility] [address] [place] [address] Care Team Providers Care Command And Control Specialist Name Role Phone Jennifer Garvey MD Primary Care Provider Angela Karimi Unavailable [phone] Patricia Santiago Unavailable [phone] Allergies No Known Allergies Reason For Referral No Information Medications Medication SIG (Take, Route, Frequency, Duration) Notes Start Date End Date Status Brilinta 90 MG Oral; Duration: 90 Days Active Losartan Potassium 25 MG TAKE 1 TABLET BY MOUTH ONCE DAILY Oral; Duration: 90 Days Active QUEtiapine Fumarate 50 MG 1 tablet at bedtime Oral Once a day; Duration: 90 days Active Rosuvastatin Calcium 20 MG TAKE 1 TABLET BY MOUTH ONCE DAILY Oral; Duration: 30 Days Active EQ Aspirin Low Dose 81 MG CHEW AND SWALLOW 1 TABLET BY MOUTH ONCE DAILY Oral; Duration: 90 Days Active Escitalopram Oxalate 10 MG 1 tablet Orally Once a day Active Memantine HCl 5 MG 1 tablet Orally Once a day Active Sulfamethoxazole-Trim ethoprim 800-160 MG Oral; Duration: 7 Days Not-Taking Cephalexin 500 MG Oral; Duration: 3 Days Not-Taking Divalproex Sodium 250 MG 1 tablet Oral Twice a day; Duration: 90 days Active Sulfamethoxazole-Trim ethoprim 800-160 MG TAKE 1 TABLET BY MOUTH TWICE DAILY Oral; Duration: 7 Days Not-Taking Metoprolol Succinate ER 25 MG TAKE 1 TABLET BY MOUTH ONCE DAILY Oral; Duration: 90 Days Active QUEtiapine Fumarate 25 MG 0.5 tablet every morning, 1 tablet every afternoon Oral see sign; Duration: 30 days decrease dose Active Aspirin Low Dose 81 MG Oral; Duration: 30 Days Not-Taking Aspirin Low Dose 81 MG CHEW AND SWALLOW 1 TABLET BY MOUTH ONCE DAILY FOR 30 DAYS Oral; Duration: 30 Days Not-Taking Social History Tobacco Use: Social History Observation [...] Never (0 point) Section Notes: Lives in [place] with w monica of 34 yrs. Grew up local, 5 siblings. Education/employment: high school grad. hasn't worked since July/heart attack. worked construction same company for whole life. Lives in [place] with w monica of 34 yrs. Grew up local, 5 siblings. Education/employment: high school grad. hasn't worked since July/heart attack. worked construction same company for whole life. Lives in [place] with w monica of 34 yrs. Grew up local, 5 siblings. Education/employment: high school grad. hasn't worked since July/heart attack. worked construction same company for whole life. Lives in [place] with w monica of 34 yrs. Grew up local, 5 siblings. Education/employment: high school grad. hasn't worked since July/heart attack. worked construction same company for whole life. 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) Active confirmed Vital Signs Heart Rate 69 /min 08/05/2024 Height-cm 190.5 cm 08/05/2024 Blood pressure diastolic 75 mm Hg 08/05/2024 Weight-kg 100.24 kg 08/05/2024 Height 75 in 08/05/2024 Blood pressure systolic 106 mm Hg 08/05/2024 Weight 221 lbs 08/05/2024 BMI 27.62 kg/m2 08/05/2024 Encounters Encounter Location Date Provider Diagnosis [place] [address] [address] [facility] [address] [address] 10/25/2023 Patricia Santiago 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 and History of anoxic brain injury Z86.[address] [address] 11/22/2023 Patricia Santiago 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 and History of anoxic brain injury Z86.[address] [address] 01/08/2024 Patricia Santiago [address] [address] 03/09/2024 Angela Hagopian 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 and Memory deficit following cerebral infarction I69.[address] [address] 05/08/2024 Angela Hagopian Memory deficit following cerebral infarction I69.311 and 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 [address] 08/05/2024 Angela Hagopian 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 ; Memory deficit following cerebral infarction I69.311 ; Mood disorder F39 ; Encounter for screening for cardiovascular disorders Z13.6 and Encounter for screening for depression Z13.[address] [address] 10/24/2023 Patricia Santiago [place] [address] [address] [facility] [address] [address] 02/20/2024 Angela Hagopian 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 [address] 06/18/2024 Angela Hagopian 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 Assessments Encounter [...] on antipsychotics with dementia FAWAD for records [place] psych hospitalization 09/2023 f/u in 1 month, [...] behavior Memory deficits - reports short and personal development coach impairment Plan: - continue memantine from neurologist [...] behavior Memory deficits - reports short and detention impairment Plan: - continue memantine from neurologist [...] behavior Memory deficits - reports short and personal development coach impairment; no changes Plan: - continue memantine [...] f/u in 2-3 months, earlier if concerns 06/18/2024 Agitation due to dementia (ICD-10 - F03.911) 08/05/2024 Memory deficit following cerebral infarction (ICD-10 - I69.311) on memantine per neurology 08/05/2024 Agitation due to dementia (ICD-10 - F03.911) 08/05/2024 Mood disorder (ICD-10 - F39) fluoxetine stopped and started escitalopram 10 mg per neurologist 11/22/2023 History of anoxic brain injury (ICD-10 [...] behavior Memory deficits - reports short and personal development coach impairment; no changes Plan: - continue memantine from neurologist - Encourage prompts for daily activities and eating Follow-up in 3 months, sooner if concerns arise 08/05/2024 Encounter for screening for cardiovascular disorders (ICD-10 - Z13.6) 08/05/2024 Encounter for screening for depression (ICD-10 - Z13.31) 03/09/2024 Other Learning About Depression Screening material was printed Assessment and Plan: Agitation/ Behavioral Disturbances - stable, no concerns Plan: - Continue quetiapine 25 mg bid and 50 mg at bedtime - continue fluoxetine 10 mg daily - continue depakote 250 mg bid - Monitor for changes in behavior Memory deficits - reports short and detention impairment Plan: - continue memantine from neurologist - Encourage prompts for daily activities and eating Follow-up in 2 months, sooner if concerns arise 08/05/2024 Other Andrews Sosa, male patient with history of dementia, presenting with persistent apathy and lack of motivation. Apathy and Lack of Motivation Assessment: Patient exhibits persistent apathy and lack of motivation, which are consistent with his dementia diagnosis. Recent discontinuation of fluoxetine by Dr. Luna noted. Current medications include Depakote 250 mg twice daily and quetiapine 25 mg morning and afternoon, 50 mg at bedtime. No reported worsening of symptoms or concerns with behaviors, irritability, or agitation. Recent loss of pet dog caused temporary mood decline. Plan: - Decrease quetiapine 25 mg to 0.5 tablet qam, 1 tablet afternoon - Continue quetiapine 50 mg at bedtime - Continue Depakote at current dose - Follow-up appointment in 8 weeks Sleep Disturbance Assessment: Patient has been referred for a sleep study by Dr. Luna, indicating potential sleep disturbances. Plan: - Await results of scheduled sleep study Plan Of Treatment Next Appt Details Provider Name:Angela robins, 09/30/2024 11:00:00 AM, [address], [address], [place], [address], Insurance Providers Payer Name Payer Address Payer Phone Subscriber Number Group Number Insured Name Patient Relationship to Insured Coverage Start Date Coverage End Date [facility] [address] [address] [place] [address] [phone] [id number] Andrews Sosa Self - patient is the insured Medical (General) History Medical History History ICD Code Anoxic brain damage, not elsewhere class ified G93.1 Cardiac arrest, cause unspecified I46.9 Surgical History Surgery Date(Month/Year) heart stent 07/2023 Hospitalization History Reason Date(Month/Year) cardiac arrest 07/2023
--- OUTSIDE RECORDS SUMMARY | 2024-09-08 08:16 | XMS_ITS | Clinical Summary ---
Author Organization [facility] Address [address] [place] [id number] Care Team Providers Care Off Track Betting Manager Name Role Phone None, Provider MD Primary Care Provider Unavaila ble Allergies No known active allergies Medications metoprolol succinate ER (TOPROL-XL) 25 MG 24 hr tablet Take 1 tablet by mouth in the evening 90 tablet 05/20/2023 Active Active Problems Problem Noted Date Diagnosed Date Palpitations 01/29/2023 Dizzinesses 01/29/2023 Family History Medical History Relation Comments NC Father Heart Attack Mother Stroke Mother Relation [...] Comments Blood Pressure 142/90 01/30/2023 12:47 PM LEATHER CLEANER Pulse 70 01/30/2023 12:47 PM LEATHER CLEANER Temperature 36.9 C (98.5 F) 12/08/2022 8:23 AM CDT Respiratory Rate 19 12/08/2022 11:30 AM CDT Oxygen Saturation 98% 01/30/2023 12:47 PM LEATHER CLEANER Inhaled Oxygen Concentration - - Weight 90.3 kg (199 lb) 01/30/2023 12:47 PM LEATHER CLEANER Height 190.5 cm (6' 3) 01/30/2023 12:47 PM LEATHER CLEANER Body Mass Index 24.87 01/30/2023 12:47 PM LEATHER CLEANER Plan of Treatment Health Maintenance Due Date Last Done Comments Colorectal Cancer Screening Colonoscopy (10 Years) 1963 Annual Physical 11/05/1966 Hepatitis C 11/05/1981 DTaP, Tdap and Td Vaccines ( 1 - Tdap) 11/05/1982 Pneumococcal Vaccine: 50+ Years (1 of 1 - PCV) 11/05/2013 Zoster Vaccines (1 of 2) 11/05/2013 COVID-19 Vaccine (4 - 2023-2 5 season) 2023 01/28/2021, 06/26/2020, 06/05/2020 RSV Immunization or 60+ Years (1 - 1-dose 75+ series) 11/05/2038 Meningococcal B Vaccine Aged Out No l onger eligible based on patient's age to complete this topic Meningococcal Vaccine Aged Out No bassam jessica eligible based on patient's age to complete this topic RSV Immunizations Under 20 Months Aged Out No longer eligible b ased on patient's age to complete this topic Care Teams Off Track Betting Manager Relationship Specialty Start Date End Date None, Provider, MD PCP - General UNKNOWN PHYSICIAN SPECIALTY 12/08/22
--- NOTE | 2024-10-06 18:30 | WPDSLEEPSTUD ---
Sleep Study Date of Study: 09/08/24 Ordering Provider: Nilo Vasquez APRN Interpreting Physician: Araseli Mckeon DO Sleep Study Type: Split Polysomnogram Height: 1.88 m Weight: 97.522 kg Body Mass Index: 27.6 Neck Circumference (inches): 17 Balaton: 12 Reason for Sleep Study Previously diagnosed sleep apnea. Needs a new study to requalify for CPAP. Sleep History The patient is a 58-year-old male who had a sleep study ordered by the pulmonary group for evaluation of sleep apnea. The patient denies waking from sleep short of breath. He frequently awakens at night with heartburn, belching, or cough. He constantly snores loud enough that others complain. He rarely has trouble sleeping when he has a cold. He rarely wakes up gasping for air throughout the night. He occasionally has breathing problems at night observed by himself or others. He denies sweating excessively at night. He denies having heart palpitations or irregular heartbeats during the night. He frequently falls asleep during the day but never while driving.He denies sleep paralysis, cataplexy, and hypnagogic-hypnopompic hallucinations. He denies having trouble at school or work due to sleepiness. He denies feeling afraid of going to sleep. He denies having nightmares. He denies remembering his dreams. He denies having thoughts racing through his mind. He denies feeling sad, depressed, or anxious. He denies having muscular tension. He occasionally notices parts of his body jerk. He frequently kicks during the night. He occasionally has crawling and aching feelings in his legs but denies having leg pain during the night. He occasionally grinds his teeth during sleep but never awakens with morning jaw pain. He denies being bothered by pain during the day and denies being awakened by pain during the night. He denies waking up feeling stiff in the morning. He denies waking up with sore or achy muscles. He denies waking up with pain in the neck, on his spine, and other joints. He goes to bed at 10:30 p.m. on weekdays and at midnight on the weekends. It takes him 10 minutes to fall asleep. He wakes up once throughout the night to urinate and is able to fall back asleep relatively quickly. He wakes up at 9 a.m. on weekdays and at 10 a.m. on the weekends. He typically gets 8-10 hours of sleep per night. He does not stay in bed after waking up in the morning. He currently lives with his . He denies consuming any caffeinated beverages within 2 hours of bedtime. He denies engaging in physical exercise before bedtime. He denies reading before falling asleep. He will watch television before falling asleep. He will take naps in the afternoon or the evening but they are not refreshing. He quit smoking cigarettes 20 years ago. He does consume caffeinated beverages throughout the day. He denies alcohol and recreational drug use. [facility] Past Medical History Medical History Excessive daytime sleepiness Blood in stool Cervical cord myelomalacia Dementia Coronary artery disease ST elevation myocardial infarct involv left circumflex coronary artery (07/19/23) Descending thoracic aortic aneurysm 4.[address] taken 07/19/2023 Osteoarthritis of hands, bilateral Surgical History Surgical History History of coronary artery stent placement (07/20/23) History of cardiac catheterization (07/20/23) Family History Family History Mother , at 74 from Stroke Diabetes mellitus Acute myocardial infarction Cerebrovascular accident High cholesterol Hypertension Father , at 54 from Heart Attack Acute myocardial infarction Sibling High cholesterol Hypertension Social History Social History Social History: Surrogate medical decision maker: Ade Sosa, spouse. Code status: Full code. Smoking packs per day: 1 Smoking cigarettes per day: 20.0 Years smoked: 27 Smoking pack-years: 27.00 Smoking status: Former smoker Tobacco type: cigarettes Smoking end date: 07/09/00 Alcohol intake: never Alcohol use details: Beer occasionally Substance use: former Substance use type: marijuana Other substance usage details: 1-2x week Last use: 07/19/23 Living arrangements: with family Spiritual care concerns: No Medications Home Medications ?Medication ?Instructions ?Recorded ?Confirmed ?Type aspirin 81 mg chewable tablet 81 mg PO DAILY 30 days #30 tabs 08/09/23 09/08/24 Rx metoprolol succinate 25 mg 25 mg PO QHS 30 days #30 tabs 08/09/23 09/08/24 Rx tablet,extended release 24 hr nitroglycerin 0.4 mg sublingual 0.4 mg sublingual Q5-15M PRN chest 08/09/23 09/08/24 Rx tablet pain #10 tabs ticagrelor 90 mg tablet (Brilinta) 90 mg PO Q12H 30 days #60 tabs 08/09/23 09/08/24 Rx divalproex 250 mg tablet,delayed 250 mg PO Q12H #14 tabs 10/07/23 09/08/24 Rx release quetiapine 100 mg tablet 50 mg PO HS 12/24/23 09/08/24 History quetiapine 25 mg tablet (Seroquel) 25 mg PO BID #21 tabs 12/24/23 09/08/24 Rx rosuvastatin 10 mg tablet 40 mg PO DAILY 05/20/24 09/08/24 History escitalopram oxalate 10 mg tablet 10 mg PO DAILY #30 tabs 06/01/24 09/08/24 Rx (Lexapro) memantine 10 mg tablet 10 mg PO BID #180 tabs 06/01/24 09/08/24 Rx losartan 25 mg tablet 25 mg PO DAILY 30 days #30 tabs 09/22/24 Rx Sleep Procedure A full night split study using the [employer] multi-channel system recorded the standard physiologic parameters including EEG, EOG, submentalis EMG, anterior tibialis EMG, EKG, body position, nasal and oral airflow using nasal pressure sensor and thermistor.? Respiratory parameters of chest and abdominal movements were recorded with Respiratory Inductance Plethysmography belts. Oxygen saturation was recorded by pulse oximetry. Video monitoring was also performed. Sleep stages, periodic limb movements, and EEG arousals were scored in 30 second epochs according to the criteria of the AASM Scoring Manual. The Apnea-Hypopnea Index was calculated using [facility] guidelines for definition of hypopnea with 4% O2 desaturations while scoring respiratory events. Sleep Architecture During the diagnostic portion of the study, the total recording time was 177.0 minutes. The total sleep time was 121.0 minutes. Sleep latency was 3.0 minutes.? REM sleep was not achieved during this portion of the sleep study. Sleep Efficiency was 68.4%. The patient had 19 awakenings for an awakening index of 9.4. Wake after sleep onset time was 53.0 minutes. The patient spent 36.5 minutes, 30.2% of total sleep time in Stage N1. The patient spent 84.5 minutes, 69.8% in Stage N2. The patient spent 0.0 minutes, 0.0% in Stage N3. The patient spent 0.0 minutes, 0.0% in Stage REM sleep. At 01:05:07 AM the patient was placed on PAP treatment and was titrated at pressures ranging from 5 cm H20 up to 11 cm H20. During the treatment portion of the study, the total recording time was 313.4 minutes.? The total sleep time was 234.5 minutes. Sleep latency was 30.0 minutes. REM latency was 235.0 minutes. Sleep Efficiency was 74.8%. Wake after Sleep Onset time was 48.5 minutes. The patient spent 18.0 minutes, 7.7% of total sleep time in Stage N1. The patient spent 174.5 minutes, 74.4% in Stage N2. The patient spent 5.0 minutes, 2.1% in Stage N3. The patient spent 37.0 minutes, 15.8% in Stage REM. Respiratory Analysis During the diagnostic portion of the study, the patient had 12 hypopneas, 2 obstructive apneas, 1 mixed apnea and 9 central apneas for an overall Apnea Hypopnea Index of 11.9 events per hour. The REM Apnea Hypopnea Index was . The NREM Apnea Hypopnea Index was 11.9. The patient had a Central Apnea Hypopnea Index of 4.5. There was no evidence of Joe-Rae Respirations. During the treatment portion of the study, the patient had 14 hypopneas, 3 obstructive apneas and 11 central apneas for an overall Apnea Hypopnea Index of 7.2 events per hour. The REM Apnea Hypopnea Index was 3.2. The NREM Apnea Hypopnea Index was 7.9. The patient had a Central Apnea Hypopnea Index of 2.8. There was no evidence of Joe-Rea Respirations. The patient was started on CPAP 5 cm H2O and titrated to CPAP 11 cm H2O due to central apneas and hypopneas. The patient was able to fall asleep starting on CPAP 5 cm H2O. The patient was able to achieve REM sleep starting on CPAP 11 cm H2O. The patient was able to achieve a residual AHI less than 5 with both NREM and REM sleep in the supine position on the final pressure setting. On CPAP 11 cm H2O, the patient spent 49.5 minutes in NREM and 37 minutes in REM with 3 central apneas and 4 hypopneas, resulting in an AHI of 4.9. The patient had a sleep efficiency of 80.8% on this pressure setting. Arousals During the diagnostic portion of the study, there were a total of 98 arousals for an arousal index of 48.6.? There were 10 respiratory arousals for an index of 5.0. There were 51 periodic limb movement arousals for an index of 25.3.? There were 2 isolated limb movement arousals for an index of 1.0. There were 36 spontaneous arousals for an index of 17.9. During the treatment portion of the study, there were a total of 128 arousals for an index of 32.8.? There were 5 respiratory arousals for an index of 1.3. There were 93 periodic limb movement arousals for an index of 23.8.? There were 3 isolated limb movement arousals for an index of 0.8. There were 27 spontaneous arousals for an index of 6.9. Periodic Limb Movements During the diagnostic portion of the study, the patient had 8 isolated limb movements with an index of 4.0. The patient had 213 periodic limb movements with an index of 105.6, which is elevated (normal < 15). The patient had a total of 221 limb movements with a total limb movement index of 109.6. During the treatment portion of the study, the patient had 17 isolated limb movements with an index of 4.3. The patient had 287 periodic limb movements with an index of 73.4, which is elevated (normal < 15). The patient had a total of 304 limb movements with a total limb movement index of 77.8. Oximetry Data During the diagnostic portion of the study, the patient had an average oxygen saturation of 93.8% in wake with a minimum oxygen saturation of 88% and a maximum oxygen saturation of 98%. The patient had an average oxygen saturation of 92.9% in sleep with a minimum oxygen saturation of 85.0% and a maximum oxygen saturation of 97.0%. The patient had 33 oxygen desaturations resulting in an Oxygen Desaturation Index of 16.4. The patient spent 1.2 minutes, 0.7% of total sleep time with an oxygen saturation less than 88%. During the treatment portion of the study, the patient had an average oxygen saturation of 95.0% in wake with a minimum oxygen saturation of 90.0% and a maximum oxygen saturation of 99.0%. The patient had an average oxygen saturation of 94.1% in sleep with a minimum oxygen saturation of 84.0% and a maximum oxygen saturation of 98.0%. The patient had 34 oxygen desaturations resulting in an Oxygen Desaturation Index of 8.7. The patient spent 4.0 minutes, 1.3% of total sleep time with an oxygen saturation less than 88%. Snoring Profile Mild snoring was present during the baseline portion of the study. The snoring resolved once the patient was titrated to 9 cm H2O. Cardiac Profile The EKG lead showed normal sinus rhythm with few PVCs. During the diagnostic portion of the study, the average pulse rate was 61.8 bpm.? The minimum pulse rate was 54.0 bpm. The maximum pulse rate was 73.0 bpm. During the treatment portion of the study, the average pulse rate was 55.8 bpm.? The minimum pulse rate was 50.0 bpm. The maximum pulse rate was 65.0 bpm. EEG Profile No signs of seizure activity seen. Assessment and Plan Assessment and Plan (1) PEPE (obstructive sleep apnea): Code(s): G47.33 - Obstructive sleep apnea (adult) (pediatric) Status: Acute Assessment and Plan: In the baseline portion of the study, the patient had an overall AHI of 11.9 with desaturation down to 85%. This is consistent with mild sleep apnea. Due to the patient's coronary artery disease, he qualifies for treatment. The patient was started on CPAP 5 cm H2O and titrated to CPAP 11 cm H2O due to central apneas and hypopneas. The patient's sleep apnea resolved on the final pressure setting. I recommend that the patient be prescribed CPAP 11 cm H2O, size large Resmed AirTouch F20 full face mask, CPAP filters/tubing and heated humidity. This should be used with all episodes of sleep.? Compliance should be reviewed within 31-90 days of starting therapy for usage greater than 4 hours per night greater than 70% of the nights. The patient should be asked about symptoms such as?excessive daytime sleepiness, quality of sleep, decreased nocturia, increased?mental functioning such as memory, mood, and concentration. Data The data obtained during this sleep study is adequate for interpretation. Certification This sleep study has been reviewed by a board certified sleep medicine physician.
[2024-10-06 20:15] VITALS: BMI 27.6
== END 2024-09-09 06:59 | disposition home or self-care (01) ==
LOC: ANHCSM 08:12
PROVIDERS: PCP Family Medicine; Visit Provider Nurse Practitioner Family
DX: G47.33 Obstructive sleep apnea (adult) (pediatric) (principal); G31.84 Mild cognitive impairment of uncertain or unknown etiology; F39 Unspecified mood [affective] disorder
CPT/HCPCS: 95811